=== PATIENT | male | born 1970 | race Caucasian/White ===

== ENCOUNTER → 2016-08-03 | Outpatient (CLI) | payer BC ==
[2016-08-03 17:00] LABS: CH 31.6; CHCM 32.7; HCT 45.2 % (39.0-53.0); HDW 2.31; HGB 14.5 gm/dL (13.0-17.5); MCH 31.2 pg (25.0-35.0); MCHC 32.1 g/dL (31.0-37.0); MCV 97.2 fL (80.0-100.0); Mean Platelet Volume 7.4; RBC 4.65 m/uL (4.30-5.90); RDW 13.2 % (11.5-15.5)
[2016-08-03 17:17] LABS: Anion Gap 11 mmol/L; Blood Urea Nitrogen 17 mg/dL (9-20); Carbon Dioxide 28 mmol/L (22-30); Chloride 104 mmol/L (98-107); Non-African American GFR(MDRD) >60 (>60 ml/min/1.73 sqM); Potassium 4.1 mmol/L (3.5-5.1); Sodium 143 mmol/L (137-145)
== END | disposition home or self-care (01) ==
LOC: LABWHC1 16:42
PROVIDERS: ATTEND Internal Medicine Interventional Cardiology
DX: Z01.812 Encounter for preprocedural laboratory examination (principal); I34.0 Nonrheumatic mitral (valve) insufficiency
CPT/HCPCS: 36415; 80051; 82565; 84520; 85027

== ENCOUNTER 2016-08-17 05:57 | Day surgery (SDC) | payer BC ==
[2016-08-16 10:37] VITALS: BMI 28.1
[2016-08-17] MEDS ORDERED: ALPRAZolam 0.25 MG TAB PO PRN (06:00)
[2016-08-17] MEDS ORDERED: SODIUM CHLORIDE 0.9% 1,000 ML in EMPTY BAG 1 BAG IV ONE (06:00)
[2016-08-17] MEDS ORDERED: ATORVASTATIN 80 MG TAB PO ONE (06:00)
[2016-08-17] MEDS ORDERED: ASPIRIN 325 MG TAB PO ONE (06:00)
[2016-08-17 06:26] VITALS: TEMP 98.1
[2016-08-17] MEDS ORDERED: fentaNYL (PF) 50 MCG/ML 2 ML AMP ONE (06:46)
[2016-08-17] MEDS ORDERED: MIDAZOLAM 2 MG/2 ML VIAL ONE (06:47)
[2016-08-17] MEDS ORDERED: SODIUM CHLORIDE 0.9% 1,000 ML IV ONE (06:56)
[2016-08-17] MEDS: BENZOCAINE SPRAY 100 APPLIC/CAN MUCOUS MEM ONE ×2 (07:00→07:10)
[2016-08-17] MEDS ORDERED: fentaNYL (PF) 50 MCG/ML 2 ML AMP IV ONE (07:07)
[2016-08-17] MEDS ORDERED: MIDAZOLAM 2 MG/2 ML VIAL IV ONE (07:07)
[2016-08-17] MEDS ORDERED: LIDOCAINE 2% INJ 20 MG/ML SQ ONE (07:50)
[2016-08-17] MEDS ORDERED: IOHEXOL 350 MG/ML 125ML BOTTLE INJ ONE (08:15)
[2016-08-17 08:21] LABS: Site RA
[2016-08-17 08:22] LABS: Site PA
[2016-08-17 08:25] LABS: Site FA
[2016-08-17] MEDS ORDERED: RX INFO: IV CONTRAST WAS GIVEN 1 EACH MISC MISCELLANE PRN (08:25)
[2016-08-17] MEDS ORDERED: SODIUM CHLORIDE 0.9% 1,000 ML IV SCH (08:30)
[2016-08-17 08:40] VITALS: RESP 16
--- NOTE | 2016-08-17 08:54 | ECHOT ---
DATE OF SERVICE: INDICATION: Evaluation of mitral valve. PROCEDURE: After explaining the procedure to the patient, its risk and complications, his blood pressure, heart rate, O2 saturation was monitored. The throat was sprayed with Cetacaine. He received 2 mg of intravenous Versed and 50 mcg of intravenous fentanyl after obtaining moderate conscious sedation state, the probe was introduced into the esophagus. Images were obtained. Following that, the probe was removed. There was no immediate complication. FINDINGS: Left atrial size is dilated, left atrial appendage is normal. Left ventricular size is mildly dilated. The overall left ventricular systolic function is 50% to 55%. The aortic valve, tricuspid and pulmonic valve are normal. The mitral valve revealed flail posterior mitral valve leaflets. No pericardial effusion was noted. Descending thoracic aorta appears to be normal. Contrast bubble study revealed no evidence of shunting across the interatrial septum. Pulse wave and color Doppler were obtained, revealed severe eccentric mitral regurgitation with mild tricuspid regurgitation. There was no shunting by color Doppler study. CONCLUSION: 1. Dilated left atrium. 2. Mildly dilated left ventricle with an ejection fraction of 50% to 55%. 3. Flail posterior mitral valve leaflets with severe eccentric mitral regurgitation. 4. Mild tricuspid regurgitation. 5. There was no shunting across the interatrial septum.
--- NOTE | 2016-08-17 09:42 | CC ---
DATE OF SERVICE: Mr. Bolton is a 45-year-old male with a history of hypertension, hyperlipidemia, and mitral valve disease, who has had progressive mitral regurgitation with mild inferior left ventricular systolic function and severe mitral valve prolapse. In view of that, recommendation was made regarding cardiac catheterization. The procedure as well as risks and complications were discussed with the patient who is in full understanding and agreement. PROCEDURE: Patient was brought to the [facility] in a fasting semi-sedated state and after reaching moderate conscious sedation using Xylocaine for anesthesia and a Seldinger technique, a 6 Irish sheath was introduced in the right femoral artery and an 8 Irish sheath was introduced in the right femoral vein. Right heart catheterization was performed using [place]-Meg catheter. Multiple pressure samples were obtained. Cardiac output by thermodilution was calculated. Following that, a selective right and left coronary angiography was performed using 6 Irish 4 [place], right Juan catheter, multiple views of the coronary artery including hemiaxial views were obtained. Following that, a 6 Irish tight pigtail catheter was introduced into the left ventricle and a 30 degree [place] view of the left ventricle was obtained. Following that, catheter and sheaths were removed. Hemostasis was obtained with deployment of an Angio-Seal in the right femoral artery and compression of the right femoral vein. FINDINGS: HEMODYNAMICS: right atrial saturation IS 73%, pulmonary artery saturation 76%, femoral artery saturation of 96%. Cardiac output by thermodilution is 4.6 L/min and by Danitza of 6.7 L/min. Pulmonary artery systolic pressure of 47 with a diastolic 23 and a mean of 34 mmHg. Pulmonary capillary wedge pressure A wave of 19, V wave of 31 with a mean of 21mmHg. Right ventricle systolic pressure of 46 with an end-diastolic of 8. Right atrial A wave of 6, V wave 6 with a mean of 6 mmHg. There was no gradient across the aortic valve. The left ventricular end-diastolic pressure of 28 mmHg. CORONARIES: LEFT MAIN: This is a large-size vessel bifurcating into the left circumflex and left anterior descending artery. Left main coronary artery is without any significant obstructive coronary artery disease. LEFT ANTERIOR DESCENDING ARTERY: This is a large-size vessel reaching toward the apex with a wraparound apex segment, giving rise to a large diagonal branch proximally, after the take off of the diagonal branch, there are 2 areas of stenosis of 30% to 40%. The rest of the vessel has no high-grade stenosis. LEFT CIRCUMFLEX: This is a nondominant vessel, large in caliber, giving rise to a large obtuse marginal branch. The left circumflex as well as its branches have no evidence of obstructive lung disease. RIGHT CORONARY ARTERY: This is a large dominant vessel, bifurcating distally into PDA and posterolateral segment and branches. The right coronary artery throughout its course has mild intimal disease up to 20% to 30% without any evidence of high-grade stenosis. LEFT VENTRICULOGRAM: Left ventriculogram is performed in 30 degree [place] view and revealed a mildly dilated left ventricle. There is evidence of mild global hypokinesis, estimated ejection fraction of 45% to 50%. There was 4+ mitral regurgitation. CONCLUSION: 1. Mild to moderate triple-vessel coronary artery disease. 2. Mildly impaired left ventricle systolic function with severe mitral regurgitation. RECOMMENDATION: In view of the finding anatomy, would recommend to proceed with mitral valve repair. The rationale behind the procedure was discussed with the patient. He will be evaluated by the Cardiovascular Service.
--- NOTE | 2016-08-17 09:46 | LTR ---
August 17, 2016 RE: Benjamin Bolton Dear Dr. Lr; I had the pleasure to perform cardiac catheterization on Mr. Bolton at [facility] on August 17, 2016 and a full copy of the procedure note will be forwarded to you. In brief, he was found to have mild to moderate coronary artery disease with severe mitral regurgitation and inflated posterior mitral valve leaflets and based on those findings, I would recommend proceeding with evaluation for mitral valve repair. I will keep you updated on his progress. Thank you again for allowing me to participate in this patient's care. Please feel free to call for any questions. Sincerely yours, JIMMY MARTIN MD
[2016-08-17 09:56] LABS: Basophils # (A) 0.1 k/uL (0-0.2); Basophils % (A) 2 %; CH 31.4; Eosinophils # (A) 0.1 k/uL (0-0.7); Eosinophils % (A) 2 %; HCT 44.1 % (39.0-53.0); HDW 2.29; HGB 14.5 gm/dL (13.0-17.5); Luc # (Auto) 0.11; Luc % (Auto) 3; Lymphocytes # (A) 1.6 k/uL (1.0-4.8); Lymphocytes % (A) 37 %; MCH 31.4 pg (25.0-35.0); MCHC 32.9 g/dL (31.0-37.0); MCV 95.6 fL (80.0-100.0); Monocytes # (A) 0.3 k/uL (0-1.0); Monocytes % (A) 6 %; Neutrophils # (A) 2.1 k/uL (1.3-7.7); Neutrophils % (A) 51 %; RBC 4.62 m/uL (4.30-5.90); WBC 4.2 k/uL (3.8-10.6); WBC (Perox) 4.39
[2016-08-17 10:07] LABS: INR 1.1 (<1.1); Partial Thromboplastin Time 25.8 sec (22.0-30.0); Prothrombin Time 11.2 sec (9.0-12.0)
[2016-08-17 10:15] LABS: ALT 27 U/L (21-72); AST 23 U/L (17-59); Alkaline Phosphatase 56 U/L (38-126); Anion Gap 10 mmol/L; Blood Urea Nitrogen 21 mg/dL (9-20); Calcium 9.4 mg/dL (8.4-10.2); Carbon Dioxide 27 mmol/L (22-30); Chloride 105 mmol/L (98-107); Cholesterol 143 mg/dL (<200); Glucose 86 mg/dL (74-99); HDL Cholesterol 38 mg/dL (40-60); Non-African American GFR(MDRD) >60 (>60 ml/min/1.73 sqM); Potassium 4.5 mmol/L (3.5-5.1); Sodium 142 mmol/L (137-145); Total Bilirubin 1.2 mg/dL (0.2-1.3); Total Protein 7.4 g/dL (6.3-8.2); Triglycerides 95 mg/dL (<150)
[2016-08-17 10:44] LABS: Hepatitis B Surface Ag Index 0.05
[2016-08-17 10:50] LABS: Hepatitis B Core IgM Index 0.03
[2016-08-17 11:01] LABS: Hepatitis C Virus IgG Index 0.01
[2016-08-17 11:07] LABS: Hepatitis C Virus IgG Ab Negative (Negative)
[2016-08-17 12:27] VITALS: BP 113/71; PULSE 86
[2016-08-17 12:29] LABS: Appearance,Urine Clear (Clear); Bilirubin,Urine Negative (Negative); Glucose,Urine (UA) Negative (Negative); Ketones,Urine Negative (Negative); Leukocyte Esterase,Urine Negative (Negative); Nitrite,Urine Negative (Negative); Protein,Urine Negative (Negative); Specific Gravity,Urine 1.044 (1.001-1.035); UA Billing (MACRO vs. MICRO) CHEM; Urobilinogen,Urine <2.0 mg/dL (<2.0)
--- NOTE | 2016-08-17 13:15 | US ---
EXAMINATION TYPE: US carotid duplex BILAT DATE OF EXAM: 08/17/2016 12:39 PM COMPARISON: NONE CLINICAL HISTORY: pre-open MVR. No h/o stroke or any symptoms EXAM MEASUREMENTS: RIGHT: Peak Systolic Velocity (PSV) cm/sec ----- Right CCA: 67.7 ----- Right ICA: 72.1 ----- Right ECA: 101.7 ICA/CCA ratio: 1.1 RIGHT: End Diastole cm/sec ----- Right CCA: 18.8 ----- Right ICA: 32.8 ----- Right ECA: 16.3 LEFT: Peak Systolic Velocity (PSV) cm/sec ----- Left CCA: 84.4 ----- Left ICA: 61.7 ----- Left ECA: 79.5 ICA/CCA ratio: 0.7 LEFT: End Diastole cm/sec ----- Left CCA: 24.8 ----- Left ICA: 30. ----- Left ECA: 20.1 VERTEBRALS (direction of flow): Right Vertebral: Antegrade Left Vertebral: Antegrade Mild homogeneous plaque seen with no significant stenosis Grayscale images show mild eccentric shadowing plaque right carotid bulb. IMPRESSION: No hemodynamically significant stenosis seen in either internal carotid artery.
[2016-08-17] MEDS ORDERED: ACETAMINOPHEN TAB 325 MG TAB ONE (13:43)
--- NOTE | 2016-08-17 14:25 | XR ---
EXAMINATION TYPE: XR chest 2V DATE OF EXAM: 08/17/2016 2:20 PM COMPARISON: Chest x-ray December 11, 2015 HISTORY: Preoperative cardiac surgery TECHNIQUE: Frontal and lateral views of the chest are obtained. FINDINGS: There is no focal air space opacity, pleural effusion, or pneumothorax seen. The cardiac silhouette size is within normal limits. Scoliotic curvature to the thoracic spine is redemonstrated. IMPRESSION: No acute cardiopulmonary process. No significant change from prior.
[2016-08-17] MEDS ORDERED: LOSARTAN 50 MG TAB PO SCH (21:00)
[2016-08-17] MEDS ORDERED: ASPIRIN 325 MG TAB PO SCH (21:00)
[2016-08-18] MEDS ORDERED: ATORVASTATIN 20 MG TAB PO SCH (09:00)
--- NOTE | 2016-08-19 18:30 | P.GSCN ---
History of Present Illness Consult date: 08/17/16 Reason for Consult: Severe mitral valve regurgitation, need for valve repair vs. replacement. Requesting physician: Rosemary Murry History of present illness: This 45 year old gentleman has been followed by Dr. Murry for mitral valve disease, specifically mitral valve prolapse and mitral regurgitation. He reported increasing fatigue and dyspnea on exertion. He denied chest pain, peripheral edema, orthopnea, palpitations, syncope, stroke-like symptoms or claudication. At the request of Dr. Murry, the patient underwent heart catheterization and transesophageal echocardiogram. His heart cath demonstrated 50% stenosis of the LAD and 20-30% stenosis of the RCA. The SHAZIA revealed severe mitral regurgitation with a flail posterior mitral valve leaflet. Dr. Roy was consulted for evaluation for a mitral valve repair vs. replacement. The findings of the heart cath and SHAZIA were discussed in detail between Dr. Roy and Dr. Murry, and it was felt that the LAD could be stented at a later time by Dr. Murry. Details of mitral valve surgery was discussed at length with the patient and his , all risks and benefits were explained, and the patient agreed to proceed with surgery. Pre-operative testing was ordered and completed while the patient was in the hospital, and he was to be discharged home to obtain dental clearance prior to surgery. Review of Systems A 14 point review of systems was completed and was negative except as noted. - Constitutional Reports as per HPI - Cardiovascular Reports as per HPI Past Medical History Past Medical History: Hyperlipidemia, Hypertension Additional Past Medical History / Comment(s): HX HEART MURMUR History of Any Multi-Drug Resistant Organisms: None Reported Past Surgical History: No Surgical Hx Reported Additional Past Surgical History / Comment(s): NO PRIOR SX HX Past Anesthesia/Blood Transfusion Reactions: No Reported Reaction Additional Past Anesthesia/Blood Transfusion Reaction / Comm: NO PRIOR SX OR ANESTHESIA HX Smoking Status: Never smoker Past Alcohol Use History: None Reported Past Drug Use History: None Reported - Past Family History Mother Family Medical History: Cancer Medications and Allergies Home Medications Medication Instructions Recorded Confirmed Type Aspirin EC [Ecotrin] 325 mg PO HS 08/16/16 08/17/16 History Atorvastatin [Lipitor] 20 mg PO DAILY 08/16/16 08/17/16 History Olmesartan Medoxomil [Benicar] 40 mg PO HS 08/16/16 08/17/16 History Allergies Allergy/AdvReac Type Severity Reaction Status Date / Time No Known Allergies Allergy Verified 08/16/16 10:34 Surgical - Exam Vital Signs Temp Pulse Resp BP Pulse Ox 98.1 F 88 18 116/77 97 08/17/16 06:24 08/17/16 06:24 08/17/16 06:24 08/17/16 06:24 08/17/16 06:24 - General well developed, well nourished, no distress, no pain - Eyes PERRL, normal ocular movement - ENT no hearing loss - Neck no masses, no bruits, trachea midline - Respiratory normal expansion, normal respiratory effort, clear to auscultation - Cardiovascular Rhythm: regular Heart Sounds: normal: S1, S2 Abnormal Heart Sounds: systolic murmur - Abdomen Abdomen: soft, non tender, bowel sounds - Genitourinary Deferred. - Rectum Deferred. - Integumentary no rash - Neurologic normal coordination, normal sensation - Musculoskeletal normal gait - Psychiatric oriented to time, oriented to person, oriented to place, speech is normal, memory intact Results - Labs 08/17/16 09:38 08/17/16 09:38 Microbiology - Last 24 Hours (Table) 08/17/16 09:27 Nasal Screen MRSA/MSSA (AMBER) - Final Nasal Swab Staphylococcus aureus,Not MRSA 08/17/16 11:55 Urine Culture - Final Urine,Voided - Imaging Chest x-ray: image reviewed EKG: image reviewed Additional studies: Carotid dopplers reviewed. Assessment and Plan (1) Severe mitral regurgitation Status: Acute (2) Hypertension Status: Acute (3) Hyperlipidemia Status: Acute Plan: The patient was seen and examined with Dr. Roy. Results of heart catheterization and SHAZIA were reviewed with the patient and his . Pre- operative testing was completed. Pre-operative teaching was initiated and reinforced. The patient is to obtain dental clearance. He is to return to the hospital on August 24, 2016 for mitral valve repair, possible replacement with exclusion of the left atrial appendage. All questions were answered to the best of our abilities. The patient received the open heart binder as well as a prescription for mupirocin to begin immediately. Thank you Dr. Murry for this consult. We look forward to working with you in the care of your patient. Time with Patient: Greater than 30
== END 2016-08-17 14:30 | disposition home or self-care (01) ==
LOC: CATHCVL 05:57
PROVIDERS: ATTEND Internal Medicine Interventional Cardiology
DX: I08.1 Rheumatic disorders of both mitral and tricuspid valves (principal); I25.10 Atherosclerotic heart disease of native coronary artery without angina pectoris; I51.7 Cardiomegaly; I10 Essential (primary) hypertension; E78.2 Mixed hyperlipidemia; Z79.899 Other long term (current) drug therapy
CPT/HCPCS: 94150; 93312; 93320; 93005; 93325; 93460; 86900; 86901; 83880; 80061; 80053; 80074; 85018; 84443; 83036; 82810; 83735; 85025; 85610; 85730; 86850; 81003; 87070; 87086; 71020; 93880; 99152; 99153; C1760; C1894 ×2; C1769; J2001; J2250; J3010; Q9967; 86920

== ENCOUNTER 2016-08-24 05:52 | Inpatient (IN) | payer BC ==
[2016-08-17 11:01] LABS: Hemoglobin A1C 5.3 % (4.2-6.1)
[2016-08-20 11:30] VITALS: BMI 26.9
[~2016-08-24 05:52] MED LIST: ALBUMIN HUMAN 25% 50 ML IV ONE; ALBUMIN HUMAN 5% 500 ML IVPB ONE; AMINOCAPROIC ACID 250 MG/ML 20 ML VIAL IV ONE; AMINOCAPROIC ACID 5,000 MG in DEXTROSE 5% IN WATER 50 ML IV ONE; ASPIRIN 81 MG CHEW PO ONE; ATORVASTATIN 10 MG TAB PO ONE; CALCIUM CHLORIDE 100 MG/ML 10 ML SYRINGE IV ONE; CHLORHEXIDINE GLUCONATE 15 ML CUP MUCOUS MEM ONE; CLEVIDIPINE BUTYRATE 25 MG in EMPTY BAG 1 BAG IV ONE; DEXTROSE 5% IN WATER 1,000 ML with POTASSIUM CHLORIDE 110 MEQ, MAGNESIUM SULFATE 16 MEQ... IV ONE; DEXTROSE 5% IN WATER 1,000 ML with POTASSIUM CHLORIDE 25 MEQ, SODIUM CHLORIDE 4MEQ/ML V... IV ONE; HEPARIN SODIUM 1,000 UNIT/ML VIAL IV ONE; HEPARIN SODIUM,PORCINE 5,000 UNIT in SODIUM CHLORIDE 0.9% 500 ML IV ONE; INSULIN REGULAR 100 UNIT in SODIUM CHLORIDE 0.9% 100 ML IV ONE; LACTATED RINGERS 1,000 ML IV ONE; LACTATED RINGERS 1,000 ML IV SCH; MAGNESIUM SULFATE MG 500 MG/ML VIAL IV ONE; MANNITOL 25% 12.5 GM/50 ML VIAL IV ONE; METOPROLOL TARTRATE 12.5 MG TAB PO ONE; MUPIROCIN 2% OINT 22 GM TUBE NASAL ONE; NITROGLYCERIN-D5W PMX 25 MG/250 ML BTL IV ONE; NITROGLYCERIN-D5W PMX 50 MG in DEXTROSE/WATER 1 250ML.BAG IV ONE; NOREPINEPHRIN 4 MG-0.9% NS PMX 4 MG/250 ML ML IV ONE; PAPAVERINE 360 MG in SODIUM CHLORIDE 0.9% 90 ML IV ONE; PHENYLEPHRINE 40 MG in SODIUM CHLORIDE 0.9% 250 ML IV ONE; PHENYLEPHRINE-0.9% NACL SYG 1 MG/10 ML SYRINGE IV ONE; PROPOFOL 50 ML IV ONE; PROTAMINE SULFATE 10 MG/ML 25 ML VIAL IV ONE; PROTAMINE SULFATE 250 MG in EMPTY BAG 1 BAG IV ONE; SODIUM BICARB 8.4% 50 ML SYR (1 MEQ/ML) IV ONE; SODIUM CHLORIDE 0.9% 1,000 ML IV ONE; ceFAZolin 1,000 MG in SODIUM CHLORIDE 0.9% IRRIGATIO 1,000 ML IRRIGATION ONE; ceFAZolin 2,000 MG in SODIUM CHLORIDE 0.9% 30 ML IVPB ONE
[2016-08-24] MEDS ORDERED: PHENYLEPHRINE-0.9% NACL SYG 1 MG/10 ML SYRINGE ONE (08:18)
[2016-08-24] MEDS ORDERED: VECURONIUM 10 MG VIAL IV ONE (08:18)
[2016-08-24] MEDS ORDERED: ALBUMIN HUMAN 5% 250 ML BOTTLE IVPB ONE (08:18)
[2016-08-24] MEDS ORDERED: PROPOFOL 10 MG/ML 20 ML VIAL IV ONE (08:18)
[2016-08-24] MEDS ORDERED: fentaNYL (PF) 50 MCG/ML 2 ML AMP ONE (08:18)
[2016-08-24] MEDS ORDERED: PROTAMINE SULFATE 10 MG/ML 5 ML VIAL IV ONE (08:18)
[2016-08-24] MEDS ORDERED: fentaNYL (PF) 50 MCG/ML 50 ML VIAL ONE (08:18)
[2016-08-24] MEDS ORDERED: ELECTROLYTE-R (PH 7.4) 1,000 ML IV.SOLN IV ONE (08:18)
[2016-08-24] MEDS ORDERED: HEPARIN SODIUM 1,000 UNIT/ML VIAL ONE (08:18)
[2016-08-24] MEDS ORDERED: HEPARIN SODIUM,PORCINE 10,000 UNIT/ML 1 ML VIAL ONE (08:18)
[2016-08-24] MEDS ORDERED: PROTAMINE SULFATE 10 MG/ML 25 ML VIAL IV ONE (08:18)
[2016-08-24] MEDS ORDERED: LIDOCAINE 2% SYG (PF) 100 MG/5 ML ONE (08:18)
[2016-08-24] MEDS ORDERED: SODIUM CHLORIDE 0.9% IRRIG 1,000 ML BTL IRRIGATION ONE (08:18)
[2016-08-24] MEDS ORDERED: MIDAZOLAM 2 MG/2 ML VIAL ONE (08:18)
[2016-08-24] MEDS ORDERED: ePHEDrine 50 MG/ML 1 ML AMP ONE (08:18)
[2016-08-24] MEDS ORDERED: CALCIUM CHLORIDE 100 MG/ML 10 ML SYRINGE ONE (08:18)
[2016-08-24 08:56] LABS: Glucose,Whole Blood 88 mg/dL (75-99)
[2016-08-24 10:17] LABS: Glucose,Whole Blood 100 mg/dL (75-99)
[2016-08-24 10:52] LABS: Glucose,Whole Blood 166 mg/dL (75-99)
[2016-08-24 11:26] LABS: Glucose,Whole Blood 158 mg/dL (75-99)
[2016-08-24] MEDS ORDERED: METHYLENE BLUE 50 MG/10 ML AMPUL MISCELLANE STA (12:48)
[2016-08-24 13:10] LABS: Glucose,Whole Blood 159 mg/dL (75-99)
[2016-08-24 13:52] LABS: Glucose,Whole Blood 161 mg/dL (75-99)
[2016-08-24 14:07] LABS: Glucose,Whole Blood 136 mg/dL (75-99)
[2016-08-24] MEDS ORDERED: ALBUMIN HUMAN 5% 250 ML IVPB ONE (14:26)
[2016-08-24] MEDS: PROPOFOL 500 MG in EMPTY BAG 1 BAG IV SCH ×2 (15:25→16:28)
[2016-08-24] MEDS ORDERED: BENZOCAINE/MENTHOL LOZENG 1 EACH LOZENGE MUCOUS MEM PRN (15:32)
[2016-08-24] MEDS ORDERED: Phosphorus Replacement Protoco 1 EACH MISC MISCELLANE PRN (15:32)
[2016-08-24] MEDS ORDERED: CLEVIDIPINE BUTYRATE 25 MG in EMPTY BAG 1 BAG IV SCH (15:32)
[2016-08-24] MEDS ORDERED: ONDANSETRON 4 MG/2 ML VIAL IVP PRN (15:32)
[2016-08-24] MEDS ORDERED: Potassium Replacement Protocol 1 EACH MISC MISCELLANE PRN (15:32)
[2016-08-24] MEDS ORDERED: Magnesium Replacement Protocol 1 EACH MISC MISCELLANE PRN (15:32)
[2016-08-24] MEDS ORDERED: METOCLOPRAMIDE 5 MG/ML 2 ML VIAL IVP PRN (15:32)
[2016-08-24] MEDS ORDERED: CALCIUM GLUCONATE 2,000 MG in SODIUM CHLORIDE 0.9% 100 ML IVPB PRN (15:32)
[2016-08-24 15:38] LABS: Glucose,Whole Blood 112 mg/dL (75-99)
[2016-08-24 15:46] LABS: Basophils % (A) 0 %; CH 31.6; CHCM 33.2; Eosinophils % (A) 0 %; HCT 36.8 % (39.0-53.0); HDW 2.31; HGB 11.9 gm/dL (13.0-17.5); Luc # (Auto) 0.05; Luc % (Auto) 1; Lymphocytes % (A) 10 %; MCHC 32.4 g/dL (31.0-37.0); MCV 95.6 fL (80.0-100.0); Mean Platelet Volume 7.3; Monocytes # (A) 0.5 k/uL (0-1.0); Monocytes % (A) 6 %; Neutrophils # (A) 7.9 k/uL (1.3-7.7); Neutrophils % (A) 83 %; RBC 3.85 m/uL (4.30-5.90); WBC 9.5 k/uL (3.8-10.6); WBC (Perox) 9.88
[2016-08-24 15:52] LABS: INR 1.2 (<1.1); Partial Thromboplastin Time 25.9 sec (22.0-30.0); Prothrombin Time 11.9 sec (9.0-12.0)
[2016-08-24 15:53] LABS: Ionized Calcium 4.8 mg/dL (4.5-5.3)
--- NOTE | 2016-08-24 16:04 | XR ---
EXAMINATION TYPE: XR chest 1V portable DATE OF EXAM: 08/24/2016 3:46 PM Comparison: 08/17/2016 Clinical History: 45 year-old male post Operative Cardiac Surgery Findings: ET tube tip is 2.5 cm from the raman. NG tube courses below the diaphragm. Some retained epicardial pacer leads are present. Mediastinal drain as well as a right pleural drain are noted. Right IJ [place]- Meg catheter with tip at the proximal right main pulmonary artery. Heart is upper limits of normal in size. Obscuration of the aortic descent with patchy left basilar o pacity. No appreciable pneumothorax. Impression: Postoperative atelectasis and trace effusion at the left base.
[2016-08-24 16:05] LABS: ALT 28 U/L (21-72); AST 38 U/L (17-59); Alkaline Phosphatase 46 U/L (38-126); Anion Gap 7 mmol/L; Blood Urea Nitrogen 12 mg/dL (9-20); Calcium 8.1 mg/dL (8.4-10.2); Carbon Dioxide 25 mmol/L (22-30); Chloride 109 mmol/L (98-107); Glucose 108 mg/dL (74-99); Magnesium 2.3 mg/dL (1.6-2.3); Non-African American GFR(MDRD) >60 (>60 ml/min/1.73 sqM); Potassium 4.3 mmol/L (3.5-5.1); Sodium 141 mmol/L (137-145); Total Bilirubin 1.2 mg/dL (0.2-1.3); Total Protein 5.2 g/dL (6.3-8.2)
[2016-08-24 16:05] LABS: ABG Base Excess -1.3 mmol/L; ABG HCO3 25 mmol/L (21-25); ABG PCO2 50 mmHg (35-45); ABG PH 7.31 (7.35-7.45); ABG PO2 152 mmHg (83-108); ABG TCO2 17 mmol/L (19-24)
[2016-08-24 16:07] LABS: Glucose,Whole Blood 115 mg/dL (75-99)
[2016-08-24] MEDS: IPRATROPIUM-ALBUTEROL 3 ML NEB INHALATION SCH ×2 (16:15→20:13)
[2016-08-24] MEDS: MORPHINE SULFATE 2 MG/ML SYRINGE IVP PRN ×2 (16:17→20:03)
[2016-08-24] MEDS: LACTATED RINGERS 1,000 ML IV SCH (16:26)
[2016-08-24 17:14] LABS: Glucose,Whole Blood 127 mg/dL (75-99)
[2016-08-24] MEDS ORDERED: INSULIN REGULAR 100 UNIT in SODIUM CHLORIDE 0.9% 100 ML IV SCH (17:30)
[2016-08-24 17:36] LABS: Glucose,Whole Blood 122 mg/dL (75-99)
[2016-08-24 18:09] LABS: Glucose,Whole Blood 130 mg/dL (75-99)
[2016-08-24] MEDS: ALBUMIN HUMAN 5% 250 ML in EMPTY BAG 1 BAG IVPB PRN ×2 (18:30→19:34)
[2016-08-24] MEDS: ACETAMINOPHEN IV (For NPO) 1,000 MG in EMPTY BAG 1 BAG IVPB SCH ×2 (18:33→23:10)
[2016-08-24] MEDS: ceFAZolin 2 GM in SODIUM CHLORIDE 0.9% 100 ML IVPB SCH (18:33)
[2016-08-24 18:51] LABS: Basophils % (A) 0 %; CH 31.9; CHCM 33.7; Eosinophils % (A) 0 %; HCT 35.9 % (39.0-53.0); HDW 2.43; Luc # (Auto) 0.09; Luc % (Auto) 1; Lymphocytes # (A) 0.5 k/uL (1.0-4.8); Lymphocytes % (A) 5 %; MCH 31.9 pg (25.0-35.0); MCHC 33.5 g/dL (31.0-37.0); MCV 95.3 fL (80.0-100.0); Mean Platelet Volume 8.3; Monocytes # (A) 0.8 k/uL (0-1.0); Monocytes % (A) 8 %; Neutrophils % (A) 85 %; RBC 3.77 m/uL (4.30-5.90); RDW 12.9 % (11.5-15.5); WBC 9.4 k/uL (3.8-10.6); WBC (Perox) 9.81
[2016-08-24 18:55] LABS: INR 1.2 (<1.1); Ionized Calcium 4.7 mg/dL (4.5-5.3); Prothrombin Time 11.8 sec (9.0-12.0)
[2016-08-24 19:00] LABS: Glucose,Whole Blood 131 mg/dL (75-99)
[2016-08-24 19:04] LABS: Anion Gap 8 mmol/L; Blood Urea Nitrogen 13 mg/dL (9-20); Calcium 7.9 mg/dL (8.4-10.2); Carbon Dioxide 24 mmol/L (22-30); Chloride 108 mmol/L (98-107); Glucose 135 mg/dL (74-99); Magnesium 2.1 mg/dL (1.6-2.3); Non-African American GFR(MDRD) >60 (>60 ml/min/1.73 sqM); Phosphorous 3.1 mg/dL (2.5-4.5); Potassium 4.2 mmol/L (3.5-5.1); Sodium 140 mmol/L (137-145)
[2016-08-24 19:37] LABS: ABG PH 7.34 (7.35-7.45)
[2016-08-24 19:38] LABS: ABG PCO2 42 mmHg (35-45); ABG PO2 63 mmHg (83-108)
[2016-08-24 19:39] LABS: ABG Base Excess -2.6 mmol/L; ABG HCO3 22 mmol/L (21-25); ABG TCO2 14 mmol/L (19-24)
[2016-08-24 19:58] LABS: Glucose,Whole Blood 122 mg/dL (75-99)
[2016-08-24 20:28] LABS: CH 31.3; CHCM 33.1; HDW 2.33; HGB 10.8 gm/dL (13.0-17.5); MCH 31.1 pg (25.0-35.0); MCHC 32.7 g/dL (31.0-37.0); Mean Platelet Volume 8.8; RBC 3.48 m/uL (4.30-5.90); RDW 13.1 % (11.5-15.5); WBC 8.1 k/uL (3.8-10.6)
[2016-08-24 21:02] LABS: Glucose,Whole Blood 134 mg/dL (75-99)
[2016-08-24] MEDS: MUPIROCIN 2% OINT 22 GM TUBE NASAL SCH (21:30)
[2016-08-24 22:02] LABS: Glucose,Whole Blood 137 mg/dL (75-99)
[2016-08-24 22:37] LABS: Basophils % (A) 0 %; CH 31.6; CHCM 32.8; Eosinophils % (A) 0 %; HCT 33.2 % (39.0-53.0); HDW 2.31; HGB 10.8 gm/dL (13.0-17.5); Luc # (Auto) 0.05; Luc % (Auto) 1; Lymphocytes # (A) 0.3 k/uL (1.0-4.8); Lymphocytes % (A) 4 %; MCH 31.5 pg (25.0-35.0); MCHC 32.5 g/dL (31.0-37.0); MCV 96.8 fL (80.0-100.0); Mean Platelet Volume 7.6; Monocytes # (A) 0.4 k/uL (0-1.0); Monocytes % (A) 5 %; Neutrophils # (A) 6.9 k/uL (1.3-7.7); Neutrophils % (A) 90 %; RBC 3.43 m/uL (4.30-5.90); RDW 13.2 % (11.5-15.5); WBC 7.6 k/uL (3.8-10.6); WBC (Perox) 7.66
[2016-08-24] MEDS: IPRATROPIUM-ALBUTEROL 3 ML NEB INHALATION PRN (23:09)
[2016-08-24 23:11] LABS: Glucose,Whole Blood 129 mg/dL (75-99)
[2016-08-25] MEDS: ceFAZolin 2 GM in SODIUM CHLORIDE 0.9% 100 ML IVPB SCH ×2 (00:07→07:48)
[2016-08-25 00:13] LABS: Glucose,Whole Blood 135 mg/dL (75-99)
[2016-08-25] MEDS: HEPARIN SODIUM,PORCINE 5,000 UNIT/ML 1 ML VIAL SQ SCH ×4 (00:35→23:02)
[2016-08-25 01:05] LABS: Glucose,Whole Blood 133 mg/dL (75-99)
[2016-08-25 02:01] LABS: Glucose,Whole Blood 127 mg/dL (75-99)
[2016-08-25 02:59] LABS: Glucose,Whole Blood 129 mg/dL (75-99)
[2016-08-25 03:11] LABS: Basophils % (A) 0 %; CHCM 33.8; Eosinophils % (A) 0 %; HCT 31.5 % (39.0-53.0); HGB 10.8 gm/dL (13.0-17.5); Luc # (Auto) 0.06; Luc % (Auto) 1; Lymphocytes # (A) 0.5 k/uL (1.0-4.8); Lymphocytes % (A) 6 %; MCH 32.5 pg (25.0-35.0); MCHC 34.1 g/dL (31.0-37.0); MCV 95.1 fL (80.0-100.0); Mean Platelet Volume 8.4; Monocytes # (A) 0.6 k/uL (0-1.0); Monocytes % (A) 7 %; Neutrophils # (A) 6.7 k/uL (1.3-7.7); Neutrophils % (A) 85 %; RBC 3.32 m/uL (4.30-5.90); RDW 12.9 % (11.5-15.5); WBC 7.9 k/uL (3.8-10.6); WBC (Perox) 7.86
[2016-08-25] MEDS: IPRATROPIUM-ALBUTEROL 3 ML NEB INHALATION PRN (03:24)
[2016-08-25 03:34] LABS: Ionized Calcium 4.8 mg/dL (4.5-5.3)
[2016-08-25 03:43] LABS: ALT 29 U/L (21-72); AST 45 U/L (17-59); Alkaline Phosphatase 42 U/L (38-126); Anion Gap 8 mmol/L; Blood Urea Nitrogen 15 mg/dL (9-20); Carbon Dioxide 24 mmol/L (22-30); Chloride 108 mmol/L (98-107); Glucose 126 mg/dL (74-99); Magnesium 1.9 mg/dL (1.6-2.3); Non-African American GFR(MDRD) >60 (>60 ml/min/1.73 sqM); Sodium 140 mmol/L (137-145); Total Bilirubin 1.2 mg/dL (0.2-1.3); Total Protein 5.3 g/dL (6.3-8.2)
[2016-08-25 04:02] LABS: Glucose,Whole Blood 128 mg/dL (75-99)
[2016-08-25 04:30] LABS: Phosphorous 3.3 mg/dL (2.5-4.5)
[2016-08-25 04:40] LABS: INR 1.2 (<1.1); Prothrombin Time 11.9 sec (9.0-12.0)
[2016-08-25] MEDS: MAGNESIUM SULFATE-D5W PMX 1 GM in DEXTROSE/WATER 1 100ML.BAG IVPB SCH ×2 (05:03→06:20)
[2016-08-25 05:10] LABS: Glucose,Whole Blood 131 mg/dL (75-99)
[2016-08-25 06:14] LABS: Glucose,Whole Blood 132 mg/dL (75-99)
[2016-08-25] MEDS: ACETAMINOPHEN IV (For NPO) 1,000 MG in EMPTY BAG 1 BAG IVPB SCH ×3 (06:19→18:24)
[2016-08-25 07:09] LABS: Glucose,Whole Blood 135 mg/dL (75-99)
--- NOTE | 2016-08-25 07:17 | CONS ---
DATE OF CONSULTATION: 08/24/3026 REASON FOR CONSULTATION: Medical management requested by Dr. Roy. CONSULTATION: This is a 45-year-old patient of Dr. Keaton Lr. The patient has undergone a mitral valve replacement currently is in the ICU, intubated. Patient on CPAP mode. The patient has one mediastinal and one pleural chest tube. Blood pressure is holding around the 90s. Telemetry shows sinus rhythm. Patient's drips include insulin at 1 unit and hour and LR at 50 mL an hour. Patient's nitro drip has been taken off. Patient's is at the bedside to furnish the history. Patient's chronic stable medical conditions include hypertension, hyperlipidemia and heart murmur from mitral valve. Review of systems cannot be done, patient intubated. Past medical history of mitral valve regurgitation, hypertension, hyperlipidemia, PAST SURGICAL HISTORY: Cardiac catheterization, SHAZIA. SOCIAL HISTORY: Patient works in [employer]. Does not smoke or drink alcohol. . FAMILY HISTORY: Cancer. HOME MEDICATIONS: 1. Benicar 40 mg q.h.s. 2. Bactroban 2% nasal ointment b.i.d. 3. Lipitor 20 mg q.h.s. 4. Aspirin 81 mg q.h.s. ALLERGIES: None. On examination, afebrile, pulse 102, respirations 16, blood pressure 97/57, pulse ox 94% on ventilator. GENERAL APPEARANCE: Average built, lying in bed, intubated. EYES: Pupils equal. Conjunctivae normal. HEENT: Endotracheal tube in place. NECK: JVD unable to assess. Mass not palpable. RESPIRATORY: Effort normal. LUNGS: Fair air entry. CARDIOVASCULAR: First and second sounds normal. No edema. ABDOMEN: Soft, nontender. Liver and spleen not palpable. LYMPHATIC: No lymph node palpable in neck or axillae. PSYCHIATRY: Unable to assess. NEUROLOGICAL: Pupils are equal. Plantars are downgoing. Does respond to pain. INVESTIGATIONS: White count 9.4, hemoglobin 12, platelets 144. The patient's platelets before surgery was 198. Patient's hemoglobin before surgery was 14.5. Potassium 4.2. BUN and creatinine are normal. Chest x-ray shows atelectasis. ASSESSMENT: 1. Mitral valve repair for mitral valve regurgitation. 2. Essential hypertension. 3. Hyperlipidemia. 4. Acute postoperative blood loss anemia as expected from surgery. 5. Dilutional thrombocytopenia. 6. Postoperative ventilator support. PLAN: At this point patient is getting ( ) insulin drip at 1 unit an hour, LR, taken off the nitro drip. Home medications will be resumed when patient is able to tolerate a diet. Care was discussed with the at the bedside. Thank you, Dr. Roy.
[2016-08-25] MEDS: MORPHINE SULFATE 2 MG/ML SYRINGE IVP PRN (07:18)
--- NOTE | 2016-08-25 07:26 | XR ---
EXAMINATION TYPE: XR chest 1V portable DATE OF EXAM: 08/25/2016 6:59 AM COMPARISON: 08/24/2016 HISTORY: Post cardiac surgery TECHNIQUE: Single frontal view of the chest is obtained. FINDINGS: ET and NG tube have been removed. Remaining instrumentation stable. Postsurgical changes w ith bilateral infiltrate and pleural effusion seen. No sizable pneumothorax. IMPRESSION: 1. ET and NG tube removal 2. Bilateral infiltrate and pleural effusion stable
[2016-08-25] MEDS ORDERED: FUROSEMIDE 10 MG/ML 2 ML VIAL IV ONE (07:34)
[2016-08-25] MEDS ORDERED: KETOROLAC 30 MG/ML 1 ML VIAL IVP ONE (07:44)
[2016-08-25] MEDS: ATORVASTATIN 40 MG TAB PO SCH (07:49)
[2016-08-25] MEDS: ASPIRIN 325 MG TAB PO SCH (07:49)
[2016-08-25] MEDS: MUPIROCIN 2% OINT 22 GM TUBE NASAL SCH ×2 (07:50→21:10)
--- NOTE | 2016-08-25 08:11 | OP ---
DATE OF SERVICE: 08/24/2016 SURGEON: Diana Roy MD MEDICAL BILLER: Lior Owens and MARLINE Cardozo PREOPERATIVE DIAGNOSES: 1. Severe mitral valve regurgitation from flail P2 segment. 2. Hypertension. 3. Hyperlipidemia. 4. Mild left ventricular dysfunction. POSTOPERATIVE DIAGNOSES: 1. Severe mitral valve regurgitation from flail P2 segment. 2. Hypertension. 3. Hyperlipidemia. 4. Mild left ventricular dysfunction. OPERATION: 1. Complex mitral valve repair with triangular resection of P2 and posterior annuloplasty using a 36 mm AnnuloFlex band. 2. Exclusion of the left atrial appendage using a 50 mm AtriClip. 3. Intraoperative transesophageal echocardiogram and epiaortic scanning. ANESTHESIA: ESTIMATED BLOOD LOSS: SPECIMENS REMOVED: COMPLICATIONS: OPERATIVE FINDINGS: INDICATION FOR SURGERY: Patient is a 45-year-old gentleman who was worked up for dyspnea on exertion with a 2-D echo that showed severe mitral valve regurgitation. A SHAZIA subsequently performed and that showed flail P2 segment of the posterior leaflet. Cardiac catheterization showed soft 30 to 40% narrowing of the proximal to mid LAD. Discussion followed with Dr. Murry from cardiology and decision was made not to combine coronary artery bypass grafting to the mitral repair. Risks, benefits, and alternatives were discussed with him. He understood and agreed to proceed. DESCRIPTION OF THE PROCEDURE: Patient in supine position and a right internal jugular [place]-Meg catheter and right radial arterial line were placed. PA pressure was 60/25. Cardiac index of 2.6. Subsequently is brought to the operating room, where general endotracheal anesthesia was induced uneventfully. Alves catheter was inserted. The chest, abdomen and both lower extremities were prepped and draped using ChloraPrep. Ioban was used to cover the skin. Patient received 2 grams of cefazolin intravenously. Transesophageal echocardiogram confirmed the preoperative finding of a flail P2 with severe mitral valve regurgitation. There were no other significant valvular abnormalities. Left ventricular function was almost normal. Midline sternotomy was performed and no bone wax was used. The right pleura was intentionally opened in this process and was drained with 28 [place] chest tube. I made a small breech in the left pleura at the end of the case to decompress any potential pneumothorax and the left pleura was not drained. Mediastinal fat was dissected between 2 ties and epiaortic scanning revealed normal ascending aorta. Pericardium was opened in an inverted T fashion and a pericardial cradle was created. Findings included a soft aorta, normal-sized heart and no visible or palpable coronary disease. After systemic heparinization and placement of respective pursestrings, aortic cannulation with a 21 [place] soft flow cannula, direct SVC cannulation with a right angle 28 [place] cannula and IVC cannulation via the IVC to right atrial junction was performed using a 30 [place] cannula. Antegrade as well as retrograde cardioplegia catheters were placed via respective pledgeted pursestrings. Cardiopulmonary bypass was initiated and temperature was allowed to drift down to 34 degrees Celsius. Both cava were encircled, but not snared. The aorta was clamped and during aortic clamping myocardial protection was achieved with an initial dose of 800 mL of antegrade cold blood cardioplegia followed by 500 mL of retrograde cold blood cardioplegia. All subsequent doses were given retrograde at 15 minutes interval. The first part of the surgery was to exclude the left atrial appendage and that was done using 50 mm AtriClip deployed at its base. Subsequently, we used the mitral Evens retractor and developed the intra-atrial groove before performing a standard left atriotomy. Exposure of the mitral valve was perfect. 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 For that reason, I placed initially the annuloplasty sutures from trigone to trigone posteriorly and a total of 11 sutures of Tycron 2-0 were placed. At this point we had good access to the valve and the subvalvular apparatus. Examining the valve, there were no other prolapsed segments except for the P2 segment which had 2 primary order chordae ruptured. Initially I placed two pairs of NeoChords from respective anterior and posterior papillary muscle and passed at the edge of the P2 segment over and over. Subsequently, the biggest ring was selected, which was a 36 mm AnnuloFlex that we had as the actual annulus measured to around 40. The sutures were passed into the ring which was seated nicely and the needles were cut and the sutures tied using the core knot device. At this point, I tested the valve and tightened the NeoChords to the best of my judgment. Testing revealed perfect seal. CO2 was flowing over the field as the left atrium was opened. At this point rewarming was started as we gave some warm blood retrograde and the left atriotomy was closed using a running Prolene 3-0 pledgeted on each corner. Before closing the atrium totally we proceeded with some de-airing maneuver. Subsequently patient was given magnesium and lidocaine and the aorta was unclamped. He required one defibrillation before regaining spontaneous sinus rhythm. After the period of reperfusion, we were able to wean off cardiopulmonary bypass. At this point, we looked at the mitral valve with SHAZIA. There appeared to be at least mild to moderate mitral valve regurgitation with a complex jet. It was not obvious why we had a leak. With the ventricle nicely full, there was no obviuos evidence of BROOK; however, the anterior leaflet was quite long. For that reason we elected to eventually go back on bypass, which we did after giving additional heparin and reclamped the aorta and rearrested the heart, with a dose of antegrade cold blood cardioplegia. The left atriotomy closure was re-opened and exposure of the mitral valve was obtained again. Visually there was no obvious reason for the leak as the P2 segment appeared to be at perfect height. For that reason I decided to proceed with a triangular resection of the P2 segment as a last effort to try to save the valve. That was done and both NeoChords were cut and retrieved. The remaining P1 and P3 segments were approximated using a running Prolene 5-0 in 2 layers meeting at the annular level and tied at that level. Hand testing of the valve revealed excellent seal. With that, again, rewarming was started and the atriotomy was closed again in the same fashion using Prolene 3-0 pledgeted on each corner. De-airing maneuver was performed. The aorta was unclamped. Patient required also single defibrillation for regaining spontaneous sinus rhythm. After the period of reperfusion we came off bypass. SHAZIA at this point showed a perfect seal with no evidence of mitral valve regurgitation and certainly no evidence of BROOK. With adequate de-airing and with that, test dose and full dose protamine was given. Decannulation followed. The SVC cannulation site was reinforced with a running 4-0 Prolene nonpledgeted. One 32 [place] substernal chest tube was placed. One bipolar ventricular pacing wire was driven via the inferior right ventricle and 2 monopolar pacing wires were affixed, one to the atrium and one to the mediastinal fat. Pericardium and pericardial fat were approximated loosely over the heart and the aorta. After ensuring adequate hemostasis and hemodynamics and after correct sponge, instrument and needle count, the sternum was approximated using 6 [id number] [place] cable after interposing fibrillar between the sternal edges. Thorough irrigation with cefazolin followed. The rest of the closure proceeded in layers. Patient did not receive any blood bank product but received around 1 liter of Cell Saver blood. He was transferred to the ICU in stable condition on no drips with normal sinus rhythm and normal PA pressure and good cardiac index of around 2.7. [facility]
[2016-08-25] MEDS: IPRATROPIUM-ALBUTEROL 3 ML NEB INHALATION SCH ×4 (08:30→19:34)
[2016-08-25 08:35] LABS: Glucose,Whole Blood 126 mg/dL (75-99)
[2016-08-25 08:53] LABS: ABG Base Excess 0.1 mmol/L; ABG HCO3 23 mmol/L (21-25); ABG Oxygen Saturation 99.8 % (94-97); ABG PCO2 36 mmHg (35-45); ABG PH 7.43 (7.35-7.45); ABG PO2 234 mmHg (83-108); ABG TCO2 25 mmol/L (19-24)
[2016-08-25 08:54] LABS: ABG HCO3 23 mmol/L (21-25); ABG PCO2 35 mmHg (35-45); ABG PH 7.44 (7.35-7.45); ABG PO2 87 mmHg (83-108); ABG TCO2 25 mmol/L (19-24)
[2016-08-25 08:55] LABS: ABG PCO2 44 mmHg (35-45); ABG PH 7.38 (7.35-7.45)
[2016-08-25 08:56] LABS: ABG HCO3 26 mmol/L (21-25); ABG Oxygen Saturation 99.9 % (94-97); ABG PO2 330 mmHg (83-108); ABG TCO2 27 mmol/L (19-24)
[2016-08-25 08:57] LABS: ABG Base Excess 0.1 mmol/L; ABG HCO3 26 mmol/L (21-25); ABG Oxygen Saturation 99.7 % (94-97); ABG PCO2 53 mmHg (35-45); ABG PH 7.32 (7.35-7.45); ABG PO2 228 mmHg (83-108); ABG TCO2 28 mmol/L (19-24)
[2016-08-25 08:58] LABS: ABG Base Excess -1.5 mmol/L; ABG HCO3 24 mmol/L (21-25); ABG Oxygen Saturation 99.8 % (94-97); ABG PCO2 46 mmHg (35-45); ABG PH 7.34 (7.35-7.45); ABG PO2 253 mmHg (83-108); ABG TCO2 25 mmol/L (19-24)
[2016-08-25 08:59] LABS: ABG HCO3 23 mmol/L (21-25); ABG Oxygen Saturation 99.9 % (94-97); ABG PCO2 44 mmHg (35-45); ABG PH 7.34 (7.35-7.45); ABG PO2 297 mmHg (83-108); ABG TCO2 25 mmol/L (19-24)
[2016-08-25 09:00] LABS: ABG HCO3 23 mmol/L (21-25); ABG Oxygen Saturation 93.7 % (94-97); ABG PCO2 39 mmHg (35-45); ABG PH 7.39 (7.35-7.45); ABG PO2 70 mmHg (83-108); ABG TCO2 24 mmol/L (19-24)
[2016-08-25] MEDS ORDERED: PANTOPRAZOLE 40 MG/10 ML VIAL IVP SCH (09:00)
[2016-08-25] MEDS ORDERED: METOPROLOL TARTRATE 12.5 MG TAB PO SCH (09:00)
[2016-08-25] MEDS ORDERED: CLOPIDOGREL 75 MG TAB PO SCH (09:00)
[2016-08-25 09:08] LABS: Glucose,Whole Blood 128 mg/dL (75-99)
[2016-08-25 09:51] LABS: Glucose,Whole Blood 124 mg/dL (75-99)
--- NOTE | 2016-08-25 10:05 | P.CRDCN ---
History of Present Illness Consult date: 08/25/16 History of present illness: This is a pleasant 45-year-old gentleman who sees Dr. Murry as an outpatient who was admitted to the hospital yesterday and underwent an elective mitral valve repair for symptomatic severe mitral regurgitation. This is postoperative day #1. The patient seems to be doing well overall. He is hemodynamically stable with marginally low blood pressure and marginal heart rate. In terms of rhythm, he is in [place]enckebach rhythm and the dose of metoprolol was held yesterday. He is on dual antiplatelet therapy with aspirin and Plavix as well as he is on statin. Past Medical History Past Medical History: Hyperlipidemia, Hypertension Additional Past Medical History / Comment(s): HX HEART MURMUR History of Any Multi-Drug Resistant Organisms: None Reported Past Surgical History: Heart Catheterization Additional Past Surgical History / Comment(s): SHAZIA Past Anesthesia/Blood Transfusion Reactions: No Reported Reaction Additional Past Anesthesia/Blood Transfusion Reaction / Comment(s): NO PRIOR SX OR ANESTHESIA HX Past Psychological History: No Psychological Hx Reported Smoking Status: Never smoker Past Alcohol Use History: None Reported Past Drug Use History: None Reported - Past Family History Mother Family Medical History: Cancer Medications and Allergies Home Medications Medication Instructions Recorded Confirmed Type Aspirin EC [Ecotrin] 81 mg PO HS 08/16/16 08/24/16 History Atorvastatin [Lipitor] 20 mg PO HS 08/16/16 08/24/16 History Olmesartan Medoxomil [Benicar] 40 mg PO HS 08/16/16 08/24/16 History Mupirocin 2% Nasal Oint [Bactroban 1 applic NASAL BID 08/20/16 08/24/16 History 2% Nasal Oint] Allergies Allergy/AdvReac Type Severity Reaction Status Date / Time No Known Allergies Allergy Verified 08/24/16 06:02 Physical Exam Vitals: Vital Signs Temp Pulse Pulse Resp BP Pulse Ox 08/25/16 09:00 77 18 94 L 08/25/16 08:43 76 08/25/16 08:31 75 08/25/16 08:00 98.6 F 68 18 92 L 08/25/16 07:00 75 36 H 94 L 08/25/16 06:00 78 22 89 L 08/25/16 05:00 84 32 H 92 L 08/25/16 04:00 106 H 40 H 91 L 08/25/16 03:27 102 H 08/25/16 03:16 103 H 08/25/16 03:00 103 H 30 H 92 L 08/25/16 02:00 103 H 36 H 94 L 08/25/16 01:00 102 H 20 92 L 08/25/16 00:00 102 H 25 H 92 L 08/24/16 23:45 102 H 26 H 94 L 08/24/16 23:22 56 L 08/24/16 23:02 99 08/24/16 23:00 99 33 H 91 L 08/24/16 22:00 100 19 94 L 08/24/16 21:00 101 H 32 H 95 08/24/16 20:27 98 08/24/16 20:16 96 08/24/16 20:00 100 95 08/24/16 19:00 100 90/59 95 08/24/16 18:00 102 H 90/59 94 L 08/24/16 17:00 100 96 08/24/16 16:40 101 H 96 08/24/16 16:30 103 H 95 08/24/16 16:20 103 H 95 08/24/16 16:10 102 H 95 08/24/16 16:00 103 H 86 16 97 08/24/16 15:50 98 100 08/24/16 15:40 97 99 08/24/16 15:30 93 98 08/24/16 15:20 93 98 Intake and Output 08/24/16 08/25/16 08/25/16 22:59 06:59 14:59 Intake Total 8414.989 9364 536.05 Output Total 784 696 238 Balance 319.195 840 298.05 Intake: IV 1074 836 280 ACETAMINOPHEN IV (For NPO 100 200 ) 1,000 mg In Empty Bag 1 bag @ 400 mls/hr IVPB Q6HR [facility] Rx#:[id number] Albumin Human 5% 250 ml 500 In Empty Bag 1 bag @ 250 mls/hr IVPB Q1HR PRN Rx#: [id number] Co/CI 40 LR 350 400 150 Pressure Bag 24 96 30 ceFAZolin 2 gm In Sodium 100 100 100 Chloride 0.9% 100 ml @ 100 mls/hr IVPB Q8HR DORINDA Rx#:[id number] Intake, IV Titration 29.195 200 6.05 Amount Insulin Regular 100 unit 3.258 6.05 In Sodium Chloride 0.9% 100 ml @ Per Protocol IV .Q0M [facility] Rx#:[id number] Magnesium Sulfate-D5w Pmx 200 1 gm In Dextrose/Water 1 100ml.bag @ 100 mls/hr IVPB Q1H DORIN[facility] Rx#: [id number] Propofol 500 mg In Empty 25.937 Bag 1 bag @ Titrate IV . Q0M [facility] Rx#:[id number] Oral 500 250 Output: Chest Tube Drainage 207 284 96 Chest Tube Mediastinal 166 216 90 Chest Tube Right 41 68 6 Urine 577 412 142 Other: Voiding Method Indwelling Catheter Indwelling Catheter Indwelling Catheter Weight 88.1 kg ABP, PAP, CO, CI - Last 8 Hours Arterial Blood Pressure 104/57 Arterial Blood Pressure 107/60 Arterial Blood Pressure 107/60 Arterial Blood Pressure 101/52 Arterial Blood Pressure 82/43 Arterial Blood Pressure 1/1 Arterial Blood Pressure 98/61 Pulmonary Artery Pressure 34/22 Pulmonary Artery Pressure 29/15 Pulmonary Artery Pressure 30/19 Pulmonary Artery Pressure 47/21 Pulmonary Artery Pressure 38/22 Pulmonary Artery Pressure 36/22 Cardiac Output 10.7 Cardiac Output 10.7 Cardiac Output 8.6 Cardiac Index 5.4 - Constitutional General appearance: no acute distress - Respiratory Respiratory: bilateral: diminished - Cardiovascular Rhythm: regular Results 08/25/16 03:00 08/25/16 03:00 Cardiac Enzymes 08/24/16 08/25/16 Range/Units 15:26 03:00 AST 38 45 (17-59) U/L Coagulation 08/24/16 08/24/16 08/25/16 Range/Units 15:26 18:40 03:00 PT 11.9 11.8 11.9 (9.0-12.0) sec APTT 25.9 (22.0-30.0) sec CBC 08/24/16 08/24/16 08/24/16 Range/Units 15:26 18:40 20:20 WBC 9.5 9.4 8.1 (3.8-10.6) k/uL RBC 3.85 L 3.77 L 3.48 L (4.30-5.90) m/uL Hgb 11.9 L 12.0 L 10.8 L (13.0-17.5) gm/dL Hct 36.8 L 35.9 L 33.0 L (39.0-53.0) % Plt Count 107 L 114 L 107 L (150-450) k/uL 08/24/16 08/25/16 Range/Units 21:35 03:00 WBC 7.6 7.9 (3.8-10.6) k/uL RBC 3.43 L 3.32 L (4.30-5.90) m/uL Hgb 10.8 L 10.8 L (13.0-17.5) gm/dL Hct 33.2 L 31.5 L (39.0-53.0) % Plt Count 112 L 108 L (150-450) k/uL Comprehensive Metabolic Panel 08/24/16 08/24/16 08/25/16 Range/Units 15:26 18:40 03:00 Sodium 141 140 140 (137-145) mmol/L Potassium 4.3 4.2 4.0 (3.5-5.1) mmol/L Chloride 109 H 108 H 108 H (98-107) mmol/L Carbon Dioxide 25 24 24 (22-30) mmol/L BUN 12 13 15 (9-20) mg/dL Creatinine 0.74 0.75 0.70 (0.66-1.25) mg/dL Glucose 108 H 135 H 126 H (74-99) mg/dL Calcium 8.1 L 7.9 L 8.0 L (8.4-10.2) mg/dL AST 38 45 (17-59) U/L ALT 28 29 (21-72) U/L Alkaline Phosphatase 46 42 (38-126) U/L Total Protein 5.2 L 5.3 L (6.3-8.2) g/dL Albumin 3.2 L 3.4 L (3.5-5.0) g/dL Current Medications Generic Name Dose Route Start Last Admin Trade Name Freq PRN Reason Stop Dose Admin Hydrocodone Bitart/Acetaminophen 2 each 08/25/16 14:50 [place] 5-325 PO Q4HR PRN Severe Pain Hydrocodone Bitart/Acetaminophen 1 each 08/25/16 14:50 [place] 5-325 PO Q4HR PRN Moderate Pain Albuterol/Ipratropium 3 ml 08/25/16 14:51 08/25/16 03:24 Duoneb 0.5 Mg-3 Mg/3 Ml Soln INHALATION 3 ml RT-Q2H PRN Administration Shortness Of Breath Or Wheezing Albuterol/Ipratropium 3 ml 08/25/16 08:00 08/25/16 08:30 Duoneb 0.5 Mg-3 Mg/3 Ml Soln INHALATION 3 ml RT-QID DORINDA Administration Aspirin 325 mg 08/25/16 09:00 08/25/16 07:49 Aspirin PO 325 mg DAILY DORINDA Administration Atorvastatin Calcium 40 mg 08/25/16 09:00 08/25/16 07:49 Lipitor PO 40 mg DAILY DORINDA Administration Benzocaine/Menthol 1 each 08/24/16 15:32 Cepacol Lozenge MUCOUS MEM Q2H PRN Sore Throat Bisacodyl 10 mg 08/25/16 14:51 Dulcolax RECTAL DAILY PRN Constipation Clopidogrel Bisulfate 75 mg 08/25/16 09:00 08/25/16 07:49 Plavix PO 75 mg DAILY DORINDA Administration Heparin Sodium (Porcine) 5,000 unit 08/25/16 00:00 08/25/16 07:48 Heparin SQ 5,000 unit Q8HR DORINDA Administration Acetaminophen 1,000 mg/ IV 100 mls @ 400 mls/hr 08/24/16 18:00 08/25/16 06:19 Solution IVPB 08/25/16 18:01 400 mls/hr Q6HR DORINDA Administration Albumin Human 250 ml/ IV 250 mls @ 250 mls/hr 08/24/16 15:32 08/24/16 19:34 Solution IVPB 08/26/16 15:33 250 mls/hr Q1HR PRN Administration For Volume Calcium Gluconate 2,000 mg/ 120 mls @ 100 mls/hr 08/24/16 15:32 Sodium Chloride IVPB 08/25/16 15:33 ONCE PRN Ionized Calcium less than 4.4 Lactated Ringer's 1,000 mls @ 20 mls/hr 08/24/16 15:32 08/24/16 16:26 Lactated Ringers IV 50 mls/hr .Q24H DORINDA Administration Insulin Human Regular 100 unit 101 mls @ 0 mls/hr 08/24/16 17:30 08/25/16 08: 35 / Sodium Chloride IV 1 unit/hr .Q0M DORINDA 1.01 mls/hr Protocol Titration Per Protocol Ketorolac Tromethamine 15 mg 08/25/16 07:35 Toradol IVP 08/28/16 07:36 Q6H PRN Moderate Pain Magnesium Hydroxide 2,400 mg 08/25/16 14:51 Milk Of Magnesia PO BID PRN Constipation Metoclopramide HCl 10 mg 08/24/16 15:32 Reglan IVP Q4H PRN Nausea And Vomiting Miscellaneous Information 1 each 08/24/16 15:32 Magnesium Per Protocol MISCELLANE DAILY PRN Per Protocol Protocol Miscellaneous Information 1 each 08/24/16 15:32 Phosphorus Per Protocol MISCELLANE DAILY PRN Per Protocol Protocol Miscellaneous Information 1 each 08/24/16 15:32 Potassium Per Protocol MISCELLANE DAILY PRN Per Protocol Protocol Morphine Sulfate 2 mg 08/24/16 15:32 08/25/16 07:18 Morphine Sulfate (Inj) IVP 2 mg Q2H PRN Administration Severe Pain Mupirocin 1 applic 08/24/16 21:00 08/25/16 07:50 Bactroban Oint NASAL 08/27/16 21:01 1 applic BID DORINDA Administration Ondansetron HCl 4 mg 08/24/16 15:32 Zofran IVP Q6HR PRN Nausea And Vomiting Oxycodone HCl 10 mg 08/24/16 15:32 08/25/16 03:41 Oxyir PO 08/25/16 15:33 10 mg Q4H PRN Administration Severe Pain Oxycodone HCl 5 mg 08/24/16 15:32 08/25/16 06:17 Oxyir PO 08/25/16 15:33 5 mg Q4H PRN Administration Moderate Pain Pantoprazole Sodium 40 mg 08/26/16 07:30 Protonix PO AC-BRKFST DORINDA Senna/Docusate Sodium 2 each 08/25/16 21:00 Senokot-S PO HS DORINDA Sodium Chloride 10 ml 08/24/16 21:00 08/25/16 07:51 Saline Flush IV Not Given BID DORINDA Intake and Output 08/24/16 08/25/16 08/25/16 22:59 06:59 14:59 Intake Total 3443.410 5065 536.05 Output Total 784 696 238 Balance 319.195 840 298.05 Intake: IV 1074 836 280 ACETAMINOPHEN IV (For NPO 100 200 ) 1,000 mg In Empty Bag 1 bag @ 400 mls/hr IVPB Q6HR [facility] Rx#:[id number] Albumin Human 5% 250 ml 500 In Empty Bag 1 bag @ 250 mls/hr IVPB Q1HR PRN Rx#: [id number] Co/CI 40 LR 350 400 150 Pressure Bag 24 96 30 ceFAZolin 2 gm In Sodium 100 100 100 Chloride 0.9% 100 ml @ 100 mls/hr IVPB Q8HR [facility] Rx#:[id number] Intake, IV Titration 29.195 200 6.05 Amount Insulin Regular 100 unit 3.258 6.05 In Sodium Chloride 0.9% 100 ml @ Per Protocol IV .Q0M [facility] Rx#:[id number] Magnesium Sulfate-D5w Pmx 200 1 gm In Dextrose/Water 1 100ml.bag @ 100 mls/hr IVPB Q1H [facility] Rx#: [id number] Propofol 500 mg In Empty 25.937 Bag 1 bag @ Titrate IV . Q0M [facility] Rx#:[id number] Oral 500 250 Output: Chest Tube Drainage 207 284 96 Chest Tube Mediastinal 166 216 90 Chest Tube Right 41 68 6 Urine 577 412 142 Other: Voiding Method Indwelling Catheter Indwelling Catheter Indwelling Catheter Weight 88.1 kg 08/25/16 03:00 08/25/16 03:00 Assessment and Plan Plan: Assessment #1 status post mitral valve repair #2 mild nonobstructive CAD Plan #1 the metoprolol was held and I agree with that #2 continue the current medical treatment #3 follow-up with the patient
--- NOTE | 2016-08-25 11:01 | CONS ---
DATE OF CONSULTATION: This is a 45-year-old male who has a history of severe mitral regurgitation. He underwent a mitral valve repair and today is postop day #1. The nurses called me yesterday and he had good weaning parameters. His blood gases showed a borderline oxygenation, but because of his positive cuff leak and his good weaning parameters and the fact he was awake and alert, we chose to go ahead and extubate him. He is doing relatively well. His surgery was mitral valve repair for mitral regurgitation as well as a left atrial appendage excision. Currently, he is on O2 at 15 L high flow. He getting IV of LR at 50 mL an hour. He is getting an insulin drip at 1 unit an hour. He is postop day #1. He is getting updrafts q.i.d. and p.r.n. He is doing reasonably well and apparently Thoracic Surgery is going to give him some additional diuretic. His medical history is positive for mitral valve disease with mitral valve regurgitation, hypertension, and hyperlipidemia. Surgical history includes a transesophageal echocardiogram and cardiac catheterization. Social history is negative for tobacco or alcohol. No illicit drug use. 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 Family history is positive for cancer. Home medications only include Benicar, Bactrim ointment, Lipitor and aspirin. Allergies are none. REVIEW OF SYSTEMS: CONSTITUTIONAL: Negative. NEUROLOGICAL: Negative. HEENT: Negative. CARDIOVASCULAR: Negative except for the mitral valve disease and mitral regurgitation. PULMONARY: Negative. GI/: Negative. RHEUMATOLOGIC: Negative. IMMUNOLOGIC: Negative. ENDOCRINOLOGIC: Negative. Current vital signs include temperature 98.6, heart rate 77, respiratory rate 18, blood pressure 104/57, mean is not calculated here, central venous pressure is reported as 16, saturations 94% on 15 L high-flow. Appears in no acute distress. He is grimacing a bit from the pain. HEENT examination is grossly unremarkable. Mucous membranes are moist. No oral lesions. Neck is supple. Full range of motion. No adenopathy or thyromegaly. Neck veins are flat. Cordis catheter in place. A PA catheter in place. Cardiovascular examination reveals distant heart sounds. S1, S2 normal. Soft murmurs noted. No S3, S4. Lungs are relatively clear, a few scattered rhonchi. No wheezes or crackles. Abdomen is soft. Bowel sounds are heard. Extremities are intact. No cyanosis, clubbing or edema. Labs are reviewed. White count 7.9, hemoglobin 10.8, hematocrit 31.5, platelet count 108,000. Blood gases from yesterday were noted. Sodium 140l, potassium 4, chloride is 108, CO2 of 24, BUN and creatinine were 15 and 0.7, calcium 8. Albumin 3.4. A chest x-ray from 08/25 shows bilateral infiltrates with pleural effusions, which are stable. Medications are reviewed. Updrafts are reviewed. ASSESSMENT: 1. Postoperative day #1 status post mitral valve repair for severe mitral regurgitation. 2. Postoperative day #1 status post left atrial appendage excision. 3. History of essential hypertension. 4. History of hyperlipidemia. 5. Postoperative respiratory failure with ventilator requirements, resolved. PLAN: Will continue to follow. The patient is on appropriate updrafts. Will recommend incentive spirometry. Will follow to discharge. X-rays will be reviewed. No additional recommendations are made. Prognosis is generally good.
[2016-08-25 11:23] LABS: Glucose,Whole Blood 114 mg/dL (75-99)
[2016-08-25] MEDS: ALBUMIN HUMAN 5% 250 ML in EMPTY BAG 1 BAG IVPB PRN ×3 (11:51→11:53)
[2016-08-25 12:25] LABS: Glucose,Whole Blood 109 mg/dL (75-99)
[2016-08-25 13:47] LABS: Glucose,Whole Blood 122 mg/dL (75-99)
[2016-08-25 14:07] LABS: Glucose,Whole Blood 126 mg/dL (75-99)
[2016-08-25] MEDS ORDERED: ALBUMIN HUMAN 5% 250 ML in EMPTY BAG 1 BAG IVPB STA (14:37)
[2016-08-25] MEDS ORDERED: HYDROcodone/APAP 5-325MG 1 EACH TAB PO PRN (14:50)
[2016-08-25] MEDS ORDERED: MAGNESIUM HYDROXIDE 2,400 MG/10 ML CUP PO PRN (14:51)
[2016-08-25] MEDS ORDERED: BISACODYL 10 MG SUPP RECTAL PRN (14:51)
[2016-08-25 14:54] LABS: CH 32.1; HCT 27.6 % (39.0-53.0); HDW 2.39; MCH 31.6 pg (25.0-35.0); MCHC 33.4 g/dL (31.0-37.0); MCV 94.7 fL (80.0-100.0); Mean Platelet Volume 9.1; RBC 2.91 m/uL (4.30-5.90); WBC 7.1 k/uL (3.8-10.6)
[2016-08-25 14:55] LABS: HGB 9.2 gm/dL (13.0-17.5)
[2016-08-25] MEDS ORDERED: CALCIUM GLUCONATE 1,000 MG in SODIUM CHLORIDE 0.9% 100 ML IVPB ONE (15:00)
[2016-08-25 15:26] LABS: Glucose,Whole Blood 131 mg/dL (75-99)
[2016-08-25 16:19] LABS: Glucose,Whole Blood 123 mg/dL (75-99)
[2016-08-25] MEDS: KETOROLAC 30 MG/ML 1 ML VIAL IVP PRN (16:49)
[2016-08-25 17:03] LABS: Glucose,Whole Blood 105 mg/dL (75-99)
[2016-08-25 18:05] LABS: Glucose,Whole Blood 129 mg/dL (75-99)
[2016-08-25 19:04] LABS: Glucose,Whole Blood 135 mg/dL (75-99)
--- NOTE | 2016-08-25 20:51 | PN ---
DATE OF SERVICE: 08/25/2016 PRESENTING COMPLAINT: Mitral valve replacement surgery-medical management. INTERVAL HISTORY: This is a 45-year-old male who is postop day one from a mitral valve replacement. Today, patient is awake, sitting up in the chair, looks a bit tired, however, appears relaxed does complain of some mid sternal chest pain relative to the surgery. States pain medications does a good job of taking care of his pain. Review of systems done for constitutional, cardiovascular, GI, pulmonary, with relevant findings as above. CURRENT MEDICATIONS: [place], albumin, Plavix, Lipitor, IV insulin, Protonix, Senokot, heparin. PHYSICAL EXAMINATION: VITAL SIGNS: Temperature 98.7, pulse 96, respiratory rate 23, blood pressure 97/46, oxygen saturation 92% on high flow nasal cannula. GENERAL APPEARANCE: Patient sitting up looks relaxed. No acute distress noted or voiced. EYES: Pupils equal. Conjunctivae normal. NECK: JVD not raised. Mass not palpable. Lung sounds diminished bilaterally. Scattered crackles noted throughout, both bilateral lung dodson. Respiratory effort normal. Unlabored. CARDIOVASCULAR: S1, S2 normal. Trace edema noted to bilateral lower extremities. Patient has two chest tubes in place. Mediastinal and right chest wall chest tubes both are free from air leaks. ABDOMEN: Soft, nontender. Liver and spleen not palpable. PSYCHIATRIC: Alert and oriented x3. Mood and affect somewhat flat. Chest wall: Midline. Chest wall incision noted. Surgical dressing remains in place. No shadowing of any drainage noted. Two chest tubes in place one to the right chest wall, one to the mediastinal area. Both draining serosanguineous drainage. INVESTIGATIONS: Chest x-ray bilateral infiltrates and pleural effusions are stable. WBC 7.1, hemoglobin 9.2, platelet count 87. Sodium 140, potassium 4.0. Total protein 5.3, albumin 3.4. ASSESSMENT: 1. Mitral valve repair for mitral valve regurgitation. 2. Essential hypertension. 3. Hyperlipidemia. 4. Acute postoperative blood loss anemia as expected from surgery. 5. Delusional thrombocytopenia. PLAN: Patient remains on the insulin drip at 1 unit an hour with lactated Ringer's. All other drips stopped with the exception of maintenance fluids. Patient will continue to work with physical therapy and occupational therapy to regain strength and returned home to normal functioning. Patient was seen and examined by nurse practitioner Geena Headley, and all elements of the case was discussed with attending, Dr. Waldron. I performed a history and physical examination of this patient and discussed the same with the dictator. I agree with the dictator's note. Any additional findings/opinions, etc. will be noted.
[2016-08-25] MEDS: LACTATED RINGERS 1,000 ML IV SCH (21:08)
[2016-08-25] MEDS: SENNOSIDES-DOCUSATE SODIUM 1 EACH TAB PO SCH (21:11)
[2016-08-25 21:47] LABS: Glucose,Whole Blood 132 mg/dL (75-99)
[2016-08-25 22:55] LABS: Glucose,Whole Blood 127 mg/dL (75-99)
[2016-08-25] MEDS: HYDROcodone/APAP 5-325MG 1 EACH TAB PO PRN (23:01)
[2016-08-26 00:43] LABS: Glucose,Whole Blood 112 mg/dL (75-99)
[2016-08-26] MEDS: KETOROLAC 30 MG/ML 1 ML VIAL IVP PRN ×3 (00:48→17:05)
[2016-08-26 01:36] LABS: Glucose,Whole Blood 127 mg/dL (75-99)
[2016-08-26 03:07] LABS: Glucose,Whole Blood 121 mg/dL (75-99)
[2016-08-26 04:16] LABS: Glucose,Whole Blood 110 mg/dL (75-99)
[2016-08-26 04:26] LABS: Basophils % (A) 0 %; CH 31.2; Eosinophils % (A) 0 %; HCT 26.4 % (39.0-53.0); HDW 2.22; HGB 8.8 gm/dL (13.0-17.5); Luc # (Auto) 0.14; Luc % (Auto) 2; Lymphocytes # (A) 1.2 k/uL (1.0-4.8); Lymphocytes % (A) 16 %; MCH 31.6 pg (25.0-35.0); MCHC 33.1 g/dL (31.0-37.0); MCV 95.3 fL (80.0-100.0); Mean Platelet Volume 9.2; Monocytes # (A) 0.5 k/uL (0-1.0); Monocytes % (A) 7 %; Neutrophils # (A) 5.8 k/uL (1.3-7.7); Neutrophils % (A) 75 %; RBC 2.77 m/uL (4.30-5.90); RDW 13.1 % (11.5-15.5); WBC 7.7 k/uL (3.8-10.6); WBC (Perox) 7.55
[2016-08-26 04:32] LABS: INR 1.1 (<1.1); Prothrombin Time 11.4 sec (9.0-12.0)
[2016-08-26 04:43] LABS: Ionized Calcium 4.7 mg/dL (4.5-5.3)
[2016-08-26 04:51] LABS: ALT 21 U/L (21-72); AST 41 U/L (17-59); Alkaline Phosphatase 34 U/L (38-126); Anion Gap 6 mmol/L; Blood Urea Nitrogen 19 mg/dL (9-20); Calcium 8.2 mg/dL (8.4-10.2); Carbon Dioxide 27 mmol/L (22-30); Chloride 104 mmol/L (98-107); Glucose 111 mg/dL (74-99); Magnesium 2.1 mg/dL (1.6-2.3); Non-African American GFR(MDRD) >60 (>60 ml/min/1.73 sqM); Potassium 4.3 mmol/L (3.5-5.1); Sodium 137 mmol/L (137-145); Total Bilirubin 1.1 mg/dL (0.2-1.3); Total Protein 5.4 g/dL (6.3-8.2)
[2016-08-26 06:10] LABS: Glucose,Whole Blood 114 mg/dL (75-99)
[2016-08-26] MEDS: HYDROcodone/APAP 5-325MG 1 EACH TAB PO PRN ×2 (06:16→20:57)
[2016-08-26 06:46] LABS: Glucose,Whole Blood 107 mg/dL (75-99)
--- NOTE | 2016-08-26 07:15 | XR ---
EXAMINATION TYPE: XR chest 1V portable DATE OF EXAM: 08/26/2016 6:47 AM COMPARISON: Prior chest x-ray 01/23/2017 HISTORY: Postop cardiac surgery TECHNIQUE: Single frontal view of the chest is obtained. FINDINGS: Right-sided chest tube remains in place, patient is post median sternotomy. Heart is enlar ged. Bibasilar density persists, there is no pneumothorax. Median sternal drain remains in place. Atr ial appendage clipping is noted. Right jugular central venous catheter has been removed. IMPRESSION: Interval catheter removal. Otherwise essentially stable exam. Probable lower lobe atelec tasis and associated effusion.
--- NOTE | 2016-08-26 07:25 | PN ---
DATE OF SERVICE: 08/25/2016 ATTENDING NOTE: This patient was seen and examined by me earlier today. I reviewed the note of nurse practitioner, Ms. Headley. Any additional notes are below. Patient is status post mitral valve replacement. Sitting up in a chair, did tolerate a little bit of food. Breathing is a somewhat better, awake, answering questions. On exam, lungs decreased breath sounds. CARDIOVASCULAR: First and second sounds are normal. PSYCH: Alert and oriented x3. INVESTIGATIONS: Hemoglobin 9.2, platelets 87. ASSESSMENT: 1. Status post mitral valve repair. 2. Dilutional thrombocytopenia. 3. Acute postoperative blood loss anemia expected. PLAN: Continue current medication and treatment plan. Patient ( ) of insulin drip. Care was discussed with the patient.
--- NOTE | 2016-08-26 07:42 | P.PN ---
<Rogelio Owens Lore - Last Filed: 08/26/16 07:42> Progress Note - Text CV Surgery Nursing Postoperative day #1, status post elective Patient awake and alert, no distress noted. He is currently sitting up to the bedside chair. He is complaining of pain 5 out of 10 on the pain scale to his chest tube insertion sites. Vital Signs: Afebrile, current temperature is 99.9F Vital Signs - 24 hr 08/24/16 08/24/16 08/24/16 15:20 15:30 15:40 Pulse Rate 93 93 97 Pulse Rate [ Pulse Oximetery ] Respiratory Rate Blood Pressure O2 Sat by Pulse 98 98 99 Oximetry 08/24/16 08/24/16 08/24/16 15:50 16:00 16:10 Pulse Rate 98 103 H 102 H Pulse Rate [ 86 Pulse Oximetery ] Respiratory 16 Rate Blood Pressure O2 Sat by Pulse 100 97 95 Oximetry 08/24/16 08/24/16 08/24/16 16:20 16:30 16:40 Pulse Rate 103 H 103 H 101 H Pulse Rate [ Pulse Oximetery ] Respiratory Rate Blood Pressure O2 Sat by Pulse 95 95 96 Oximetry 08/24/16 08/24/16 08/24/16 17:00 18:00 19:00 Pulse Rate 100 102 H 100 Pulse Rate [ Pulse Oximetery ] Respiratory Rate Blood Pressure 90/59 90/59 O2 Sat by Pulse 96 94 L 95 Oximetry 08/24/16 08/24/16 08/24/16 20:00 20:16 20:27 Pulse Rate 100 96 98 Pulse Rate [ Pulse Oximetery ] Respiratory Rate Blood Pressure O2 Sat by Pulse 95 Oximetry 08/24/16 08/24/16 08/24/16 21:00 22:00 23:00 Pulse Rate 101 H 100 99 Pulse Rate [ Pulse Oximetery ] Respiratory 32 H 19 33 H Rate Blood Pressure O2 Sat by Pulse 95 94 L 91 L Oximetry 08/24/16 08/24/16 08/24/16 23:02 23:22 23:45 Pulse Rate 99 56 L 102 H Pulse Rate [ Pulse Oximetery ] Respiratory 26 H Rate Blood Pressure O2 Sat by Pulse 94 L Oximetry 08/25/16 08/25/16 08/25/16 00:00 01:00 02:00 Pulse Rate 102 H 102 H 103 H Pulse Rate [ Pulse Oximetery ] Respiratory 25 H 20 36 H Rate Blood Pressure O2 Sat by Pulse 92 L 92 L 94 L Oximetry 08/25/16 08/25/16 08/25/16 03:00 03:16 03:27 Pulse Rate 103 H 103 H 102 H Pulse Rate [ Pulse Oximetery ] Respiratory 30 H Rate Blood Pressure O2 Sat by Pulse 92 L Oximetry 08/25/16 08/25/16 08/25/16 04:00 05:00 06:00 Pulse Rate 106 H 84 78 Pulse Rate [ Pulse Oximetery ] Respiratory 40 H 32 H 22 Rate Blood Pressure O2 Sat by Pulse 91 L 92 L 89 L Oximetry 08/25/16 07:00 Pulse Rate 75 Pulse Rate [ Pulse Oximetery ] Respiratory 36 H Rate Blood Pressure O2 Sat by Pulse 94 L Oximetry ABP, PAP, CO, CI - Last 8 Hours Arterial Blood Pressure 107/60 Arterial Blood Pressure 101/52 Arterial Blood Pressure 82/43 Arterial Blood Pressure 1/1 Arterial Blood Pressure 98/61 Arterial Blood Pressure 102/58 Arterial Blood Pressure 96/57 Pulmonary Artery Pressure 29/15 Pulmonary Artery Pressure 30/19 Pulmonary Artery Pressure 47/21 Pulmonary Artery Pressure 38/22 Pulmonary Artery Pressure 36/22 Pulmonary Artery Pressure 39/20 Pulmonary Artery Pressure 31/18 Cardiac Output 10.7 Cardiac Output 10.7 Cardiac Output 8.6 Cardiac Output 8.6 Cardiac Output 8.6 Cardiac Index 5.4 Labs: Short CBC 08/24/16 08/24/16 08/24/16 Range/Units 15:26 18:40 20:20 WBC 9.5 9.4 8.1 (3.8-10.6) k/uL Hgb 11.9 L 12.0 L 10.8 L (13.0-17.5) gm/dL Hct 36.8 L 35.9 L 33.0 L (39.0-53.0) % Plt Count 107 L 114 L 107 L (150-450) k/uL Neutrophils # 7.9 H 8.0 H (1.3-7.7) k/uL 08/24/16 08/25/16 Range/Units 21:35 03:00 WBC 7.6 7.9 (3.8-10.6) k/uL Hgb 10.8 L 10.8 L (13.0-17.5) gm/dL Hct 33.2 L 31.5 L (39.0-53.0) % Plt Count 112 L 108 L (150-450) k/uL Neutrophils # 6.9 6.7 (1.3-7.7) k/uL BMP 08/24/16 08/24/16 08/25/16 15:26 18:40 03:00 Sodium 141 140 140 Potassium 4.3 4.2 4.0 Chloride 109 H 108 H 108 H Carbon Dioxide 25 24 24 BUN 12 13 15 Creatinine 0.74 0.75 0.70 Glucose 108 H 135 H 126 H Calcium 8.1 L 7.9 L 8.0 L Liver Function 08/24/16 08/25/16 Range/Units 15:26 03:00 Total Bilirubin 1.2 1.2 (0.2-1.3) mg/dL AST 38 45 (17-59) U/L ALT 28 29 (21-72) U/L Alkaline Phosphatase 46 42 (38-126) U/L Albumin 3.2 L 3.4 L (3.5-5.0) g/dL ABG ABG pH 7.34 (7.35-7.45) L 08/24/16 19:28 ABG pCO2 42 mmHg (35-45) 08/24/16 19:28 ABG pO2 63 mmHg (83-108) L 08/24/16 19:28 ABG O2 Saturation 93.0 % (94-97) L 08/24/16 19:28 PT/INR, D-dimer PT 11.9 sec (9.0-12.0) 08/25/16 03:00 INR 1.2 (<1.1) 08/25/16 03:00 IV Fluids: Lactated Ringer's at 50 mL per hour Insulin drip at 1 unit per hour. Cardiac output: 10.7 Cardiac index: 5.4 Pulmonary artery pressures: CVP: 15 Lungs: Essentially clear throughout, diminished bilateral bases. Respirations are symmetrical and unlabored. O2 sat: 94% on 15 L high flow oxygen. I/S: 500-750 mL, reviewed with the patient important of using his incentive spirometry every hour while awake. Patient demonstrated proper use of incentive incentive spirometry but will need some continued coaching on the use. Heart: S1S2, regular rhythm and rate, negative for S3, gallop or murmur. Bedside telemetry showing Mobitz type I heart block heart rate 69. Sternum stable, chest incision clean with dressing clean and dry. Heart hugger in place, patient is demonstrating proper use of his heart hugger. Knee-high LISA hose and sequential compression devices in place to his bilateral lower extremity Rob. Abdomen: Soft, Positive bowel sounds present in all 4 quadrants. CBGs: 128-132 mg/dL in the last 24 hours. U/O: Adequate, Alves catheter for accurate I&O. 380 mL output in the last 8 hours. Chest Tubes: Mediastinal chest tube without air leak, 205 mL output in the last 8 hours, 450 mL output since surgery. It remains to low continuous wall suction and draining thin serosanguineous drainage. Right pleural chest tube without air leak, 60 mL output in the last 8 hours, 110 mL output since surgery. It remains to low continuous wall suction and is draining thin serosanguineous drainage. 24 hr Total: Intake & Output 08/23/16 08/24/16 08/25/16 08/26/16 06:59 06:59 06:59 06:59 Intake Total 2671.195 62 Output Total 5930 62 Balance -3258.805 0 Weight 83.574 kg 88.1 kg Active Medications Hydrocodone Bitart/Acetaminophen ([place]ippey 5-325) 2 each PO Q4HR PRN PRN Reason: Severe Pain Hydrocodone Bitart/Acetaminophen ([place]ippey 5-325) 1 each PO Q4HR PRN PRN Reason: Moderate Pain Albuterol/Ipratropium (Duoneb 0.5 Mg-3 Mg/3 Ml Soln) 3 ml INHALATION RT-Q2H PRN PRN Reason: Shortness Of Breath Or Wheezing Last Admin: 08/25/16 03:24 Dose: 3 ml Albuterol/Ipratropium (Duoneb 0.5 Mg-3 Mg/3 Ml Soln) 3 ml INHALATION RT-QID [facility] Aspirin (Aspirin) 325 mg PO DAILY [facility] Last Admin: 08/25/16 07:49 Dose: 325 mg Atorvastatin Calcium (Lipitor) 40 mg PO DAILY [facility] Last Admin: 08/25/16 07:49 Dose: 40 mg Benzocaine/Menthol (Cepacol Lozenge) 1 each MUCOUS MEM Q2H PRN PRN Reason: Sore Throat Bisacodyl (Dulcolax) 10 mg RECTAL DAILY PRN PRN Reason: Constipation Clopidogrel Bisulfate (Plavix) 75 mg PO DAILY [facility] Last Admin: 08/25/16 07:49 Dose: 75 mg Heparin Sodium (Porcine) (Heparin) 5,000 unit SQ Q8HR [facility] Last Admin: 08/25/16 07:48 Dose: 5,000 unit Acetaminophen 1,000 mg/ IV (Solution) 100 mls @ 400 mls/hr IVPB Q6HR [facility] Stop: 08/25/16 18:01 Last Admin: 08/25/16 06:19 Dose: 400 mls/hr Albumin Human 250 ml/ IV (Solution) 250 mls @ 250 mls/hr IVPB Q1HR PRN PRN Reason: For Volume Stop: 08/26/16 15:33 Last Admin: 08/24/16 19:34 Dose: 250 mls/hr Calcium Gluconate 2,000 mg/ (Sodium Chloride) 120 mls @ 100 mls/hr IVPB ONCE PRN PRN Reason: Ionized Calcium less than 4.4 Stop: 08/25/16 15:33 Clevidipine 25 mg/ IV Solution 50 mls @ 2 mls/hr IV .Q24H DORINDA; 1 MG/HR PRN Reason: Protocol Last Admin: 08/25/16 07:43 Dose: Not Given Lactated Ringer's (Lactated Ringers) 1,000 mls @ 50 mls/hr IV .Q20H [facility] Last Admin: 08/24/16 16:26 Dose: 50 mls/hr Propofol 500 mg/ IV Solution 50 mls @ 0 mls/hr IV .Q0M [facility]; Titrate PRN Reason: Protocol Last Titration: 08/24/16 17:45 Dose: 0 mcg/kg/min, 0 mls/hr Cefazolin Sodium 2 gm/ Sodium (Chloride) 100 mls @ 100 mls/hr IVPB Q8HR [facility] Stop: 08/25/16 08:59 Last Admin: 08/25/16 07:48 Dose: 100 mls/hr Insulin Human Regular 100 unit (/ Sodium Chloride) 101 mls @ 0 mls/hr IV .Q0M [facility]; Per Protocol PRN Reason: Protocol Last Titration: 08/24/16 20:29 Dose: 0.5 unit/hr, 0.5 mls/hr Ketorolac Tromethamine (Toradol) 15 mg IVP Q6H PRN PRN Reason: Moderate Pain Stop: 08/28/16 07:36 Magnesium Hydroxide (Milk Of Magnesia) 2,400 mg PO BID PRN PRN Reason: Constipation Metoclopramide HCl (Reglan) 10 mg IVP Q4H PRN PRN Reason: Nausea And Vomiting Miscellaneous Information (Magnesium Per Protocol) 1 each MISCELLANE DAILY PRN ; Protocol PRN Reason: Per Protocol Miscellaneous Information (Phosphorus Per Protocol) 1 each MISCELLANE DAILY PRN ; Protocol PRN Reason: Per Protocol Miscellaneous Information (Potassium Per Protocol) 1 each MISCELLANE DAILY PRN ; Protocol PRN Reason: Per Protocol Morphine Sulfate (Morphine Sulfate (Inj)) 2 mg IVP Q2H PRN PRN Reason: Severe Pain Last Admin: 08/25/16 07:18 Dose: 2 mg Mupirocin (Bactroban Oint) 1 applic NASAL BID [facility] Stop: 08/27/16 21:01 Last Admin: 08/25/16 07:50 Dose: 1 applic Ondansetron HCl (Zofran) 4 mg IVP Q6HR PRN PRN Reason: Nausea And Vomiting Oxycodone HCl (Oxyir) 10 mg PO Q4H PRN PRN Reason: Severe Pain Stop: 08/25/16 15:33 Last Admin: 08/25/16 03:41 Dose: 10 mg Oxycodone HCl (Oxyir) 5 mg PO Q4H PRN PRN Reason: Moderate Pain Stop: 08/25/16 15:33 Last Admin: 08/25/16 06:17 Dose: 5 mg Pantoprazole Sodium (Protonix) 40 mg IVP DAILY [facility] Last Admin: 08/25/16 07:50 Dose: 40 mg Senna/Docusate Sodium (Senokot-S) 2 each PO HS [facility] Sodium Chloride (Saline Flush) 10 ml IV BID [facility] Last Admin: 08/25/16 07:51 Dose: Not Given Plan: 1. His beta ashly will be held this a.m. due to his bedside monitor showing Mobitz type I. 2. Continue aspirin, statin, Plavix, subcu heparin. 3. We will discontinue his [place] catheter and place his Cordis to continuous CVP monitoring. 4. Toradol be started for pain control. 5. GI and DVT prophylaxis in place, continue sequential compression devices. 6. Lasix 20 mg IV 1 today. 7. Wean oxygen as tolerated to maintain an O2 sat greater than or equal to 91% . Dr. Senior on for pulmonary management. 8. Encourage increase in his activity as tolerated. Physical therapy and cardiac rehab in place. 9. Further recommendations as patient progresses. <Noah Hankins - Last Filed: 08/26/16 19:24> Progress Note - Text The patient was seen and examined. I agree with the above assessment and plan. He appears to have type II heart block today. His beta ashly is currently on hold. He is on 15 L of nasal cannula oxygen. We'll give him a dose of Lasix. We'll try to get his pain under control. Toradol was added.
[2016-08-26] MEDS: IPRATROPIUM-ALBUTEROL 3 ML NEB INHALATION SCH ×4 (08:15→19:49)
[2016-08-26] MEDS: HEPARIN SODIUM,PORCINE 5,000 UNIT/ML 1 ML VIAL SQ SCH ×2 (08:37→17:10)
[2016-08-26] MEDS: PANTOPRAZOLE 40 MG TABLET PO SCH (08:37)
[2016-08-26] MEDS: MUPIROCIN 2% OINT 22 GM TUBE NASAL SCH ×2 (08:37→21:15)
[2016-08-26] MEDS: ASPIRIN 325 MG TAB PO SCH (08:37)
[2016-08-26] MEDS: ATORVASTATIN 40 MG TAB PO SCH (08:37)
[2016-08-26] MEDS ORDERED: FUROSEMIDE 10 MG/ML 2 ML VIAL IV STA (08:51)
[2016-08-26 08:57] LABS: Glucose,Whole Blood 110 mg/dL (75-99)
--- NOTE | 2016-08-26 09:11 | P.PN ---
Addendum entered and electronically signed by Samanta Rosenthal [facility] 08/26/16 10:37 : Addendum: Per Dr. Roy, continue Plavix 75 mg daily. Original Note: <Samanta Rosenthal - Last Filed: 08/26/16 09:10> Subjective Principal diagnosis: Severe mitral valve regurgitation from a flail P2 segment. Hypertension. Hyperlipidemia. Mild left ventricular dysfunction. POD #2 complex mitral valve repair with triangular resection of P2 and posterior annuloplasty using a 36 mm AnnuloFlex band. Exclusion of the left atrial appendage using a 50 mm atrial clip. Intraoperative transesophageal echocardiogram and epi-aortic scanning. Patient currently sitting up in a recliner in no apparent distress. States his pain is better controlled. Blood pressure better today. Objective - Vital Signs Vital signs: Vital Signs Temp 98.2 F 08/26/16 00:00 Pulse 97 08/26/16 07:00 Resp 20 08/26/16 07:00 BP 90/53 08/26/16 07:00 Pulse Ox 94 L 08/26/16 07:00 Intake & Output 08/25/16 08/26/16 08/26/16 18:59 06:59 18:59 Intake Total 1244.114 712.392 Output Total 1033 1369 Balance 211.114 -656.608 Intake: IV 884 707 ACETAMINOPHEN IV (For NPO 100 ) 1,000 mg In Empty Bag 1 bag @ 400 mls/hr IVPB Q6HR [facility] Rx#:[id number] LR 600 650 Pressure Bag 84 57 ceFAZolin 2 gm In Sodium 100 Chloride 0.9% 100 ml @ 100 mls/hr IVPB Q8HR [facility] Rx#:[id number] Intake, IV Titration 110.114 5.392 Amount Calcium Gluconate 1,000 100 mg In Sodium Chloride 0.9 % 100 ml @ 100 mls/hr IVPB ONCE ONE Rx#: [id number] Insulin Regular 100 unit 10.114 5.392 In Sodium Chloride 0.9% 100 ml @ Per Protocol IV .Q0M [facility] Rx#:[id number] Oral 250 Output: Chest Tube Drainage 308 264 Chest Tube Mediastinal 270 170 Chest Tube Right 38 94 Urine 725 1105 Other: Voiding Method Indwelling Catheter Indwelling Catheter ABP, PAP, CO, CI - Last Documented Arterial Blood Pressure 83/55 Pulmonary Artery Pressure 34/22 Cardiac Output 10.7 Cardiac Index 5.4 - Constitutional General appearance: Present: cooperative, no acute distress - Respiratory Details: Lungs sounds diminished bilaterally. Respirations even, nonlabored. Remains on 15 L high flow oxygen with oxygen saturation of 97%. Able to achieve 1000 mL on his incentive spirometry. Mediastinal chest tube to -20 cm wall suction, 130 mL serosanguineous drainage overnight, 400 mL in the last 24 hours. Right pleural chest tube to -20 cm wall suction, 80 mL serous drainage overnight, 140 mL the last 24 hours. No air leaks present. Weak cough - Cardiovascular Details: S1, S2 present. Regular rate and rhythm, normal sinus rhythm with first-degree block. A/V epicardial pacemaker wires present, attached to generator, backup rate 50 bpm. Sternum stable. Heart hugger in place with patient demonstrated appropriate use. Right internal jugular Cordis present. No edema present. Teds/SCDs present. - Gastrointestinal Gastrointestinal Comment(s): Abdomen soft, nontender, nondistended. Hypoactive bowel sounds present. Negative flatus, negative BM at this point. Tolerating diet. - Genitourinary Genitourinary Comment(s): Alves present draining clear, yellow urine. Output 30-50 mL/h overnight. - Integumentary Integumentary Comment(s): Anterior chest incision well approximated with Dermabond and covered with dry intact dressing. - Musculoskeletal Musculoskeletal: Present: gait normal, strength equal bilaterally - Psychiatric Psychiatric: Present: A&O x's 3, appropriate affect, intact judgment & insight - Allied health notes Allied health notes reviewed: nursing - Labs CBC & Chem 7: 08/26/16 04:15 08/26/16 04:15 Labs: Abnormal Lab Results - Last 24 Hours (Table) 08/24/16 08/24/16 08/24/16 Range/Units 08:50 10:03 10:48 RBC (4.30-5.90) m/uL Hgb (13.0-17.5) gm/dL Hct (39.0-53.0) % Plt Count (150-450) k/uL ABG pH (7.35-7.45) ABG pCO2 (35-45) mmHg ABG pO2 234 H 330 H (83-108) mmHg ABG HCO3 26 H (21-25) mmol/L ABG Total CO2 25 H 25 H 27 H (19-24) mmol/L ABG O2 Saturation 99.8 H 99.9 H (94-97) % ABG Hematocrit (34.0-46.0) % ABG Sodium (135-146) mmol/L ABG Potassium 4.8 H (3.4-4.5) mmol/L Glucose (74-99) mg/dL POC Glucose (mg/dL) (75-99) mg/dL Calcium (8.4-10.2) mg/dL Alkaline Phosphatase (38-126) U/L Total Protein (6.3-8.2) g/dL Albumin (3.5-5.0) g/dL Arterial Blood Potassium 4.8 H (3.4-4.5) mmol/L 08/24/16 08/24/16 08/24/16 Range/Units 11:23 12:55 13:33 RBC (4.30-5.90) m/uL Hgb (13.0-17.5) gm/dL Hct (39.0-53.0) % Plt Count (150-450) k/uL ABG pH 7.32 L 7.34 L 7.34 L (7.35-7.45) ABG pCO2 53 H 46 H (35-45) mmHg ABG pO2 228 H 253 H 297 H (83-108) mmHg ABG HCO3 26 H (21-25) mmol/L ABG Total CO2 28 H 25 H 25 H (19-24) mmol/L ABG O2 Saturation 99.7 H 99.8 H 99.9 H (94-97) % ABG Hematocrit 31 L (34.0-46.0) % ABG Sodium 147 H (135-146) mmol/L ABG Potassium 5.0 H 4.8 H 5.0 H (3.4-4.5) mmol/L Glucose (74-99) mg/dL POC Glucose (mg/dL) (75-99) mg/dL Calcium (8.4-10.2) mg/dL Alkaline Phosphatase (38-126) U/L Total Protein (6.3-8.2) g/dL Albumin (3.5-5.0) g/dL Arterial Blood Potassium 5.0 H 4.8 H 5.0 H (3.4-4.5) mmol/L 08/24/16 08/25/16 08/25/16 Range/Units 14:14 08:33 09:06 RBC (4.30-5.90) m/uL Hgb (13.0-17.5) gm/dL Hct (39.0-53.0) % Plt Count (150-450) k/uL ABG pH (7.35-7.45) ABG pCO2 (35-45) mmHg ABG pO2 70 L (83-108) mmHg ABG HCO3 (21-25) mmol/L ABG Total CO2 (19-24) mmol/L ABG O2 Saturation 93.7 L (94-97) % ABG Hematocrit (34.0-46.0) % ABG Sodium (135-146) mmol/L ABG Potassium (3.4-4.5) mmol/L Glucose (74-99) mg/dL POC Glucose (mg/dL) 126 H 128 H (75-99) mg/dL Calcium (8.4-10.2) mg/dL Alkaline Phosphatase (38-126) U/L Total Protein (6.3-8.2) g/dL Albumin (3.5-5.0) g/dL Arterial Blood Potassium (3.4-4.5) mmol/L 08/25/16 08/25/16 08/25/16 Range/Units 09:47 11:04 12:19 RBC (4.30-5.90) m/uL Hgb (13.0-17.5) gm/dL Hct (39.0-53.0) % Plt Count (150-450) k/uL ABG pH (7.35-7.45) ABG pCO2 (35-45) mmHg ABG pO2 (83-108) mmHg ABG HCO3 (21-25) mmol/L ABG Total CO2 (19-24) mmol/L ABG O2 Saturation (94-97) % ABG Hematocrit (34.0-46.0) % ABG Sodium (135-146) mmol/L ABG Potassium (3.4-4.5) mmol/L Glucose (74-99) mg/dL POC Glucose (mg/dL) 124 H 114 H 109 H (75-99) mg/dL Calcium (8.4-10.2) mg/dL Alkaline Phosphatase (38-126) U/L Total Protein (6.3-8.2) g/dL Albumin (3.5-5.0) g/dL Arterial Blood Potassium (3.4-4.5) mmol/L 08/25/16 08/25/16 08/25/16 Range/Units 13:26 14:05 14:40 RBC 2.91 L (4.30-5.90) m/uL Hgb 9.2 L D (13.0-17.5) gm/dL Hct 27.6 L (39.0-53.0) % Plt Count 87 L (150-450) k/uL ABG pH (7.35-7.45) ABG pCO2 (35-45) mmHg ABG pO2 (83-108) mmHg ABG HCO3 (21-25) mmol/L ABG Total CO2 (19-24) mmol/L ABG O2 Saturation (94-97) % ABG Hematocrit (34.0-46.0) % ABG Sodium (135-146) mmol/L ABG Potassium (3.4-4.5) mmol/L Glucose (74-99) mg/dL POC Glucose (mg/dL) 122 H 126 H (75-99) mg/dL Calcium (8.4-10.2) mg/dL Alkaline Phosphatase (38-126) U/L Total Protein (6.3-8.2) g/dL Albumin (3.5-5.0) g/dL Arterial Blood Potassium (3.4-4.5) mmol/L 08/25/16 08/25/16 08/25/16 Range/Units 15:23 16:17 17:00 RBC (4.30-5.90) m/uL Hgb (13.0-17.5) gm/dL Hct (39.0-53.0) % Plt Count (150-450) k/uL ABG pH (7.35-7.45) ABG pCO2 (35-45) mmHg ABG pO2 (83-108) mmHg ABG HCO3 (21-25) mmol/L ABG Total CO2 (19-24) mmol/L ABG O2 Saturation (94-97) % ABG Hematocrit (34.0-46.0) % ABG Sodium (135-146) mmol/L ABG Potassium (3.4-4.5) mmol/L Glucose (74-99) mg/dL POC Glucose (mg/dL) 131 H 123 H 105 H (75-99) mg/dL Calcium (8.4-10.2) mg/dL Alkaline Phosphatase (38-126) U/L Total Protein (6.3-8.2) g/dL Albumin (3.5-5.0) g/dL Arterial Blood Potassium (3.4-4.5) mmol/L 08/25/16 08/25/16 08/25/16 Range/Units 18:03 19:02 21:45 RBC (4.30-5.90) m/uL Hgb (13.0-17.5) gm/dL Hct (39.0-53.0) % Plt Count (150-450) k/uL ABG pH (7.35-7.45) ABG pCO2 (35-45) mmHg ABG pO2 (83-108) mmHg ABG HCO3 (21-25) mmol/L ABG Total CO2 (19-24) mmol/L ABG O2 Saturation (94-97) % ABG Hematocrit (34.0-46.0) % ABG Sodium (135-146) mmol/L ABG Potassium (3.4-4.5) mmol/L Glucose (74-99) mg/dL POC Glucose (mg/dL) 129 H 135 H 132 H (75-99) mg/dL Calcium (8.4-10.2) mg/dL Alkaline Phosphatase (38-126) U/L Total Protein (6.3-8.2) g/dL Albumin (3.5-5.0) g/dL Arterial Blood Potassium (3.4-4.5) mmol/L 08/25/16 08/26/16 08/26/16 Range/Units 22:53 00:41 01:35 RBC (4.30-5.90) m/uL Hgb (13.0-17.5) gm/dL Hct (39.0-53.0) % Plt Count (150-450) k/uL ABG pH (7.35-7.45) ABG pCO2 (35-45) mmHg ABG pO2 (83-108) mmHg ABG HCO3 (21-25) mmol/L ABG Total CO2 (19-24) mmol/L ABG O2 Saturation (94-97) % ABG Hematocrit (34.0-46.0) % ABG Sodium (135-146) mmol/L ABG Potassium (3.4-4.5) mmol/L Glucose (74-99) mg/dL POC Glucose (mg/dL) 127 H 112 H 127 H (75-99) mg/dL Calcium (8.4-10.2) mg/dL Alkaline Phosphatase (38-126) U/L Total Protein (6.3-8.2) g/dL Albumin (3.5-5.0) g/dL Arterial Blood Potassium (3.4-4.5) mmol/L 08/26/16 08/26/16 08/26/16 Range/Units 03:05 04:14 04:15 RBC (4.30-5.90) m/uL Hgb (13.0-17.5) gm/dL Hct (39.0-53.0) % Plt Count (150-450) k/uL ABG pH (7.35-7.45) ABG pCO2 (35-45) mmHg ABG pO2 (83-108) mmHg ABG HCO3 (21-25) mmol/L ABG Total CO2 (19-24) mmol/L ABG O2 Saturation (94-97) % ABG Hematocrit (34.0-46.0) % ABG Sodium (135-146) mmol/L ABG Potassium (3.4-4.5) mmol/L Glucose 111 H (74-99) mg/dL POC Glucose (mg/dL) 121 H 110 H (75-99) mg/dL Calcium 8.2 L (8.4-10.2) mg/dL Alkaline Phosphatase 34 L (38-126) U/L Total Protein 5.4 L (6.3-8.2) g/dL Albumin 3.4 L (3.5-5.0) g/dL Arterial Blood Potassium (3.4-4.5) mmol/L 08/26/16 08/26/16 08/26/16 Range/Units 04:15 06:08 06:44 RBC 2.77 L (4.30-5.90) m/uL Hgb 8.8 L (13.0-17.5) gm/dL Hct 26.4 L (39.0-53.0) % Plt Count 86 L (150-450) k/uL ABG pH (7.35-7.45) ABG pCO2 (35-45) mmHg ABG pO2 (83-108) mmHg ABG HCO3 (21-25) mmol/L ABG Total CO2 (19-24) mmol/L ABG O2 Saturation (94-97) % ABG Hematocrit (34.0-46.0) % ABG Sodium (135-146) mmol/L ABG Potassium (3.4-4.5) mmol/L Glucose (74-99) mg/dL POC Glucose (mg/dL) 114 H 107 H (75-99) mg/dL Calcium (8.4-10.2) mg/dL Alkaline Phosphatase (38-126) U/L Total Protein (6.3-8.2) g/dL Albumin (3.5-5.0) g/dL Arterial Blood Potassium (3.4-4.5) mmol/L - Imaging and Cardiology Chest x-ray: report reviewed, image reviewed Assessment and Plan (1) Hyperlipidemia Status: Acute (2) Hypertension Status: Acute (3) Severe mitral regurgitation Status: Acute Plan: 1. Continue aspirin, Lipitor, heparin subcu. 2. Will hold Plavix secondary to decreasing platelet count, 86,000 this morning. 3. Wean oxygen as tolerated. Encourage incentive spirometry use. 4. Will DC Alves catheter. Continue accurate I/O's. 5. Will give lasix 20 mg IVP x 1 dose. 6. GI/DVT prophylaxis. 7. Increase activity. Ambulate in hallway. Physical therapy to follow. 8. Continue chest tubes for 1 more day. 9. Labs, chest x-ray in the morning. 10. More recommendations as patient progresses. Time with Patient: Greater than 30 <Noah Hankins - Last Filed: 08/26/16 19:23> Objective - Vital Signs Vital signs: Vital Signs Temp 97.8 F 08/26/16 16:00 Pulse 105 H 08/26/16 19:00 Resp 16 08/26/16 19:00 BP 84/60 08/26/16 11:00 Pulse Ox 93 L 08/26/16 19:00 Intake & Output 05/1108/26/16 08/27/16 06:59 18:59 06:59 Intake Total 712.392 316 26 Output Total 1369 1015 5 Balance -656.608 -699 21 Intake: IV 707 316 26 LR 650 250 20 Pressure Bag 57 66 6 Intake, IV Titration 5.392 Amount Insulin Regular 100 unit 5.392 In Sodium Chloride 0.9% 100 ml @ Per Protocol IV .Q0M [facility] Rx#:[id number] Output: Chest Tube Drainage 264 165 5 Chest Tube Mediastinal 170 100 0 Chest Tube Right 94 65 5 Urine 1105 850 Other: Voiding Method Indwelling Catheter Urinal ABP, PAP, CO, CI - Last Documented Arterial Blood Pressure 96/60 Pulmonary Artery Pressure 34/22 Cardiac Output 10.7 Cardiac Index 5.4 - Labs CBC & Chem 7: 08/26/16 04:15 08/26/16 04:15 Labs: Abnormal Lab Results - Last 24 Hours (Table) 08/25/16 08/25/16 08/26/16 Range/Units 21:45 22:53 00:41 RBC (4.30-5.90) m/uL Hgb (13.0-17.5) gm/dL Hct (39.0-53.0) % Plt Count (150-450) k/uL Glucose (74-99) mg/dL POC Glucose (mg/dL) 132 H 127 H 112 H (75-99) mg/dL Calcium (8.4-10.2) mg/dL Alkaline Phosphatase (38-126) U/L Total Protein (6.3-8.2) g/dL Albumin (3.5-5.0) g/dL 08/26/16 08/26/16 08/26/16 Range/Units 01:35 03:05 04:14 RBC (4.30-5.90) m/uL Hgb (13.0-17.5) gm/dL Hct (39.0-53.0) % Plt Count (150-450) k/uL Glucose (74-99) mg/dL POC Glucose (mg/dL) 127 H 121 H 110 H (75-99) mg/dL Calcium (8.4-10.2) mg/dL Alkaline Phosphatase (38-126) U/L Total Protein (6.3-8.2) g/dL Albumin (3.5-5.0) g/dL 08/26/16 08/26/16 08/26/16 Range/Units 04:15 04:15 06:08 RBC 2.77 L (4.30-5.90) m/uL Hgb 8.8 L (13.0-17.5) gm/dL Hct 26.4 L (39.0-53.0) % Plt Count 86 L (150-450) k/uL Glucose 111 H (74-99) mg/dL POC Glucose (mg/dL) 114 H (75-99) mg/dL Calcium 8.2 L (8.4-10.2) mg/dL Alkaline Phosphatase 34 L (38-126) U/L Total Protein 5.4 L (6.3-8.2) g/dL Albumin 3.4 L (3.5-5.0) g/dL 08/26/16 08/26/16 08/26/16 Range/Units 06:44 08:48 13:03 RBC (4.30-5.90) m/uL Hgb (13.0-17.5) gm/dL Hct (39.0-53.0) % Plt Count (150-450) k/uL Glucose (74-99) mg/dL POC Glucose (mg/dL) 107 H 110 H 106 H (75-99) mg/dL Calcium (8.4-10.2) mg/dL Alkaline Phosphatase (38-126) U/L Total Protein (6.3-8.2) g/dL Albumin (3.5-5.0) g/dL 08/26/16 Range/Units 17:09 RBC (4.30-5.90) m/uL Hgb (13.0-17.5) gm/dL Hct (39.0-53.0) % Plt Count (150-450) k/uL Glucose (74-99) mg/dL POC Glucose (mg/dL) 117 H (75-99) mg/dL Calcium (8.4-10.2) mg/dL Alkaline Phosphatase (38-126) U/L Total Protein (6.3-8.2) g/dL Albumin (3.5-5.0) g/dL Assessment and Plan Plan: The patient was seen and examined. I agree with the above assessment and plan. He appears to be breathing easier today. He is down to 5 L nasal cannula oxygen. His beta ashly has been on hold secondary to a marginal blood pressure. His chest x-ray appears wet and we will give him a dose of Lasix. We will keep his chest tubes for today. His Alves catheter was removed. Plavix is currently on hold secondary to thrombocytopenia.
--- NOTE | 2016-08-26 11:29 | PN ---
DATE OF SERVICE: 08/26/2016 PRESENTING COMPLAINT: Mitral valve replacement surgery, medical management. INTERVAL HISTORY: This is a 45-year-old male who is postop day 2 from a mitral valve replacement. Today patient is awake, sitting up in the chair, looking more awake and not quite as tired as yesterday. However, patient is relaxed, does complain of midsternal chest pain relative to the surgery. Patient has had several episodes while sitting up of persistent low blood pressure as reported by the nurse and patient states that he does feel a little "woozy" when sitting up in the chair. Blood pressure is fine when patient lies down. Review of systems done for cars constitutional, cardiovascular, GI, pulmonary, with relevant findings as above. CURRENT MEDICATIONS: [place], albumin, Plavix, Lipitor, IV insulin, Protonix, Senokot, heparin. PHYSICAL EXAMINATION: VITAL SIGNS: Temperature 98.2, pulse 93, respiratory rate 20, blood pressure 90/53. Central venous pressure 11, oxygen saturation 94% on 5 L nasal cannula. GENERAL APPEARANCE: Patient sitting in the chair, awake, alert, states he feels "pretty good." Pain is well controlled. EYES: Pupils equal. Conjunctivae are normal. NECK: JVD not raised. Mass not palpable. LUNGS: Diminished breath sounds bilaterally, scattered crackles throughout. Respiratory effort normal, unlabored. CARDIOVASCULAR: S1, S2 normal, trace edema noted to bilateral lower extremities. ABDOMEN: Soft, nontender. Bowel sounds x4. Liver and spleen not palpable. PSYCHIATRIC: Alert and oriented x3. Mood and affect are normal. Midline chest wall incision noted. Surgical dressing remains in place. No shadowing of any drainage noted. Two chest tubes remain in place, one to the right chest wall, one to the mediastinal area. Both draining serosanguineous drainage. INVESTIGATIONS: Chest x-ray dated 08/26/2016. Interval catheter removal, otherwise essentially stable exam, probable lower lobe atelectasis and associated effusion. LABS: White blood cell count 7.7, hemoglobin 8.8, platelet count 86, sodium 137, potassium 4.3, BUN 19, creatinine 0.79. Blood glucose 111, calcium 8.2, total protein 5.4. ASSESSMENT: 1. Status post mitral valve repair. 2. Delusional thrombocytopenia. 3. Acute postoperative blood loss anemia as expected from surgery. PLAN: Patient is still on insulin drip at 1 unit an hour; however, at this moment is being held as patient's blood glucose has been stable, does not require treatment. Will consider switching to a.c. and at bedtime sliding scale. Patient was not formerly prior to surgery a diabetic patient. Continue with current medications and treatment plan. Plan of care was discussed with the patient. Patient was seen and examined by nurse practitioner, Geena Headley and all elements of the case discussed with attending, Dr. Waldron.
--- NOTE | 2016-08-26 12:24 | P.PN ---
Progress Note - Text This is a pleasant 45-year-old gentleman who sees Dr. Murry as an outpatient who was admitted to the hospital yesterday and underwent an elective mitral valve repair for symptomatic severe mitral regurgitation. This is postoperative day #1. The patient seems to be doing well overall. The blood pressure has been marginally low and the beta ashly was held because of that and also because of the heart rhythm yesterday. He is slightly tachycardic with a heart rate around 100 beats per minutes. I will continue the current medical treatment was dual antiplatelet therapy and statin and start him on a small dose of beta ashly once the blood pressure above 90 mmHg systolic.
--- NOTE | 2016-08-26 12:46 | P.PN ---
Subjective Principal diagnosis: Severe mitral regurgitation This is a very pleasant 45-year-old gentleman with a known history of severe mitral regurgitation. He was admitted electively for a mitral valve repair which was performed 08/24/[address] Millard. This is postoperative day #2. Seen in follow-up in the intensive care unit. He is awake and alert in no acute distress. He is sitting up in the chair at the bedside. He denies any worsening shortness of breath, cough or congestion. He is currently pulling approximately 500 MLS on his incentive spirometer. [address] in place. He has a lactated [facility]inger[facility] at [facility]. He's utilizing 5 L/m per nasal cannula to maintain O2 saturations in the 90s. Chest x-ray reveals lower lobe atelectasis. Hemoglobin 8.8. Objective - Vital Signs Vital signs: Vital Signs Temp 98.0 F 08/26/16 12:00 Pulse 96 08/26/16 12:01 Resp 19 08/26/16 12:00 BP 84/60 08/26/16 11:00 Pulse Ox 92 L 08/26/16 12:00 Intake & Output 08/25/16 08/26/16 08/26/16 18:59 06:59 18:59 Intake Total 1244.114 712.392 160 Output Total 1033 1369 550 Balance 211.114 -656.608 -390 Intake: IV 884 707 160 ACETAMINOPHEN IV (For NPO 100 ) 1,000 mg In Empty Bag 1 bag @ 400 mls/hr IVPB Q6HR [facility] Rx#:[id number] LR 600 650 130 Pressure Bag 84 57 30 ceFAZolin 2 gm In Sodium 100 Chloride 0.9% 100 ml @ 100 mls/hr IVPB Q8HR [facility] Rx#:[id number] Intake, IV Titration 110.114 5.392 Amount Calcium Gluconate 1,000 100 mg In Sodium Chloride 0.9 % 100 ml @ 100 mls/hr IVPB ONCE ONE Rx#: [id number] Insulin Regular 100 unit 10.114 5.392 In Sodium Chloride 0.9% 100 ml @ Per Protocol IV .Q0M [facility] Rx#:[id number] Oral 250 Output: Chest Tube Drainage 308 264 100 Chest Tube Mediastinal 270 170 60 Chest Tube Right 38 94 40 Urine 725 1105 450 Other: Voiding Method Indwelling Catheter Indwelling Catheter Urinal ABP, PAP, CO, CI - Last Documented Arterial Blood Pressure 111/65 Pulmonary Artery Pressure 34/22 Cardiac Output 10.7 Cardiac Index 5.4 - Exam GENERAL EXAM: Alert, active, comfortable in no apparent distress. HEAD: Normocephalic. EYES: Normal reaction of pupils, equal size. NOSE: Clear with pink turbinates. THROAT: No erythema or exudates. NECK: No masses, no JVD. CHEST: Sternal dressing is dry and intact. LUNGS: Equal air entry with crackles in the posterior bases more so on the left. Tube remains in place. CVS: S1 and S2 normal with no audible murmurs, regular rhythm. ABDOMEN: No hepatosplenomegaly, normal bowel sounds, no guarding or rigidity. SPINE: No scoliosis or deformity SKIN: No rashes CENTRAL NERVOUS SYSTEM: No focal deficits, tone is normal in all 4 extremities. Extremities: There is trace peripheral edema. No clubbing, no cyanosis. Peripheral pulses are intact. - Labs CBC & Chem 7: 08/26/16 04:15 08/26/16 04:15 Labs: Abnormal Lab Results - Last 24 Hours (Table) 08/25/16 08/25/16 08/25/16 Range/Units 13:26 14:05 14:40 RBC 2.91 L (4.30-5.90) m/uL Hgb 9.2 L D (13.0-17.5) gm/dL Hct 27.6 L (39.0-53.0) % Plt Count 87 L (150-450) k/uL Glucose (74-99) mg/dL POC Glucose (mg/dL) 122 H 126 H (75-99) mg/dL Calcium (8.4-10.2) mg/dL Alkaline Phosphatase (38-126) U/L Total Protein (6.3-8.2) g/dL Albumin (3.5-5.0) g/dL 08/25/16 08/25/16 08/25/16 Range/Units 15:23 16:17 17:00 RBC (4.30-5.90) m/uL Hgb (13.0-17.5) gm/dL Hct (39.0-53.0) % Plt Count (150-450) k/uL Glucose (74-99) mg/dL POC Glucose (mg/dL) 131 H 123 H 105 H (75-99) mg/dL Calcium (8.4-10.2) mg/dL Alkaline Phosphatase (38-126) U/L Total Protein (6.3-8.2) g/dL Albumin (3.5-5.0) g/dL 08/25/16 08/25/16 08/25/16 Range/Units 18:03 19:02 21:45 RBC (4.30-5.90) m/uL Hgb (13.0-17.5) gm/dL Hct (39.0-53.0) % Plt Count (150-450) k/uL Glucose (74-99) mg/dL POC Glucose (mg/dL) 129 H 135 H 132 H (75-99) mg/dL Calcium (8.4-10.2) mg/dL Alkaline Phosphatase (38-126) U/L Total Protein (6.3-8.2) g/dL Albumin (3.5-5.0) g/dL 08/25/16 08/26/16 08/26/16 Range/Units 22:53 00:41 01:35 RBC (4.30-5.90) m/uL Hgb (13.0-17.5) gm/dL Hct (39.0-53.0) % Plt Count (150-450) k/uL Glucose (74-99) mg/dL POC Glucose (mg/dL) 127 H 112 H 127 H (75-99) mg/dL Calcium (8.4-10.2) mg/dL Alkaline Phosphatase (38-126) U/L Total Protein (6.3-8.2) g/dL Albumin (3.5-5.0) g/dL 08/26/16 08/26/16 08/26/16 Range/Units 03:05 04:14 04:15 RBC (4.30-5.90) m/uL Hgb (13.0-17.5) gm/dL Hct (39.0-53.0) % Plt Count (150-450) k/uL Glucose 111 H (74-99) mg/dL POC Glucose (mg/dL) 121 H 110 H (75-99) mg/dL Calcium 8.2 L (8.4-10.2) mg/dL Alkaline Phosphatase 34 L (38-126) U/L Total Protein 5.4 L (6.3-8.2) g/dL Albumin 3.4 L (3.5-5.0) g/dL 08/26/16 08/26/16 08/26/16 Range/Units 04:15 06:08 06:44 RBC 2.77 L (4.30-5.90) m/uL Hgb 8.8 L (13.0-17.5) gm/dL Hct 26.4 L (39.0-53.0) % Plt Count 86 L (150-450) k/uL Glucose (74-99) mg/dL POC Glucose (mg/dL) 114 H 107 H (75-99) mg/dL Calcium (8.4-10.2) mg/dL Alkaline Phosphatase (38-126) U/L Total Protein (6.3-8.2) g/dL Albumin (3.5-5.0) g/dL 08/26/16 Range/Units 08:48 RBC (4.30-5.90) m/uL Hgb (13.0-17.5) gm/dL Hct (39.0-53.0) % Plt Count (150-450) k/uL Glucose (74-99) mg/dL POC Glucose (mg/dL) 110 H (75-99) mg/dL Calcium (8.4-10.2) mg/dL Alkaline Phosphatase (38-126) U/L Total Protein (6.3-8.2) g/dL Albumin (3.5-5.0) g/dL Assessment and Plan Plan: Impression: #1 Severe mitral regurgitation, status post mitral valve repair. Postoperative day #2. #2 Hypertension. #3 Hyperlipidemia. Plan: The patient was seen and evaluated by Dr. Senior. His chest x-ray and labs were reviewed. We'll continue the patient's current medications. He is again educated regarding the importance of the increased use and do incentive spirometer and cough and deep breathing exercises. We'll increase his activity as tolerated. We'll continue to follow.
[2016-08-26 13:05] LABS: Glucose,Whole Blood 106 mg/dL (75-99)
[2016-08-26] MEDS: INSULIN LISPRO (humaLOG) 300 UNIT/3 ML VIAL SQ SCH ×3 (14:14→21:18)
[2016-08-26] MEDS: CLOPIDOGREL 75 MG TAB PO SCH (17:10)
[2016-08-26 17:11] LABS: Glucose,Whole Blood 117 mg/dL (75-99)
--- NOTE | 2016-08-26 20:16 | PN ---
DATE OF SERVICE: 08/26/2016 ATTENDING NOTE: This patient was seen and examined by me today. I reviewed the note of my nurse practitioner, Ms. Headley. Any additional changes are below. Patient is status post mitral valve replacement. Does get a bit dizzy, lightheaded. at the bedside. Did tolerate some diet. On exam, lungs have decreased breath sounds. CARDIOVASCULAR: First and second sounds normal. PSYCH: Alert oriented x3. INVESTIGATIONS: Hemoglobin is 8.8. BUN and creatinine are normal. Accu-Cheks are noted. Albumin 3.4. Chest x-ray shows some atelectasis. Blood pressure noted to be running in the 80s. ASSESSMENT: 1. Status post mitral valve repair. 2. Dilutional thrombocytopenia. 3. Acute blood loss anemia, expected from surgery. 4. Hypotension, symptomatic, from blood loss anemia. 5. Hyperglycemia, on a small dose of insulin. 6. Atelectasis. PLAN: Patient to continue to get IV fluids. Encouraged to be out of bed. Keep a close eye. Care was discussed with patient and at the bedside.
[2016-08-26] MEDS: SENNOSIDES-DOCUSATE SODIUM 1 EACH TAB PO SCH (21:14)
[2016-08-26 21:19] LABS: Glucose,Whole Blood 111 mg/dL (75-99)
[2016-08-27] MEDS: KETOROLAC 30 MG/ML 1 ML VIAL IVP PRN ×3 (00:12→18:48)
[2016-08-27] MEDS: HEPARIN SODIUM,PORCINE 5,000 UNIT/ML 1 ML VIAL SQ SCH ×4 (00:12→22:56)
[2016-08-27 04:44] LABS: Basophils % (A) 0 %; CH 31.8; CHCM 33.9; Eosinophils # (A) 0.1 k/uL (0-0.7); Eosinophils % (A) 1 %; HCT 25.2 % (39.0-53.0); HDW 2.31; HGB 8.4 gm/dL (13.0-17.5); Luc # (Auto) 0.16; Luc % (Auto) 2; Lymphocytes # (A) 1.7 k/uL (1.0-4.8); Lymphocytes % (A) 22 %; MCH 31.6 pg (25.0-35.0); MCHC 33.5 g/dL (31.0-37.0); MCV 94.3 fL (80.0-100.0); Monocytes # (A) 0.6 k/uL (0-1.0); Monocytes % (A) 8 %; Neutrophils # (A) 5.4 k/uL (1.3-7.7); Neutrophils % (A) 68 %; RBC 2.67 m/uL (4.30-5.90); RDW 12.8 % (11.5-15.5); WBC (Perox) 7.88
[2016-08-27 04:48] LABS: Ionized Calcium 4.9 mg/dL (4.5-5.3)
[2016-08-27 04:49] LABS: INR 1.1 (<1.1); Prothrombin Time 10.9 sec (9.0-12.0)
[2016-08-27 04:55] LABS: ALT 25 U/L (21-72); AST 32 U/L (17-59); Alkaline Phosphatase 43 U/L (38-126); Anion Gap 7 mmol/L; Blood Urea Nitrogen 22 mg/dL (9-20); Calcium 8.3 mg/dL (8.4-10.2); Carbon Dioxide 27 mmol/L (22-30); Chloride 104 mmol/L (98-107); Glucose 96 mg/dL (74-99); Non-African American GFR(MDRD) >60 (>60 ml/min/1.73 sqM); Potassium 4.3 mmol/L (3.5-5.1); Sodium 138 mmol/L (137-145); Total Bilirubin 0.9 mg/dL (0.2-1.3); Total Protein 5.2 g/dL (6.3-8.2)
[2016-08-27] MEDS: HYDROcodone/APAP 5-325MG 1 EACH TAB PO PRN (05:29)
[2016-08-27 07:28] LABS: Glucose,Whole Blood 109 mg/dL (75-99)
--- NOTE | 2016-08-27 07:31 | XR ---
EXAMINATION TYPE: XR chest 1V portable DATE OF EXAM: 08/27/2016 7:00 AM COMPARISON: 08/26/2016 HISTORY: Chest pain TECHNIQUE: Single frontal view of the chest is obtained. FINDINGS: Right basilar chest tube is unchanged in position. Sizable pneumothorax is not identified. Left lower lobe consolidation is noted. Mild strandy density right lung base. Sternotomy evaluated mediastinal wires are in place. Continued cardiomegaly. IMPRESSION: 1. Stable chest.
[2016-08-27] MEDS: CLOPIDOGREL 75 MG TAB PO SCH (08:49)
[2016-08-27] MEDS: MUPIROCIN 2% OINT 22 GM TUBE NASAL SCH ×2 (08:49→22:56)
[2016-08-27] MEDS: PANTOPRAZOLE 40 MG TABLET PO SCH (08:50)
[2016-08-27] MEDS: ATORVASTATIN 40 MG TAB PO SCH (08:50)
[2016-08-27] MEDS: INSULIN LISPRO (humaLOG) 300 UNIT/3 ML VIAL SQ SCH ×3 (08:50→22:48)
[2016-08-27] MEDS: ASPIRIN 325 MG TAB PO SCH (08:50)
[2016-08-27] MEDS: IPRATROPIUM-ALBUTEROL 3 ML NEB INHALATION SCH ×4 (09:32→20:48)
[2016-08-27] MEDS ORDERED: FUROSEMIDE 10 MG/ML 2 ML VIAL IV ONE (10:27)
--- NOTE | 2016-08-27 10:28 | P.PN ---
Subjective Principal diagnosis: Severe mitral regurgitation This is a very pleasant 45-year-old gentleman with a known history of severe mitral regurgitation. He was admitted electively for a mitral valve repair which was performed 08/24/[address] Roy. This is postoperative day #2. Seen in follow-up in the intensive care unit. He is awake and alert in no acute distress. He is sitting up in the chair at the bedside. He denies any worsening shortness of breath, cough or congestion. He is currently pulling approximately 500 MLS on his incentive spirometer. [address] in place. He has a lactated Ringer's at O. He's utilizing 5 L/m per nasal cannula to maintain O2 saturations in the 90s. Chest x-ray reveals lower lobe atelectasis. Hemoglobin 8.8. She is seen again today 08/27/2016 in follow-up in the intensive care unit. He is currently sitting up in the chair at the bedside. He is doing better today as compared to yesterday. He is still pulling about 1 L on the incentive spirometer. He is performing coughing and deep breathing exercises. His chest x-ray is stable. A hemoglobin remains stable at 8.4. He's been up ambulating with assistance. Objective - Vital Signs Vital signs: Vital Signs Temp 98.0 F 08/27/16 08:00 Pulse 96 08/27/16 09:46 Resp 17 08/27/16 09:00 BP 106/48 08/27/16 07:00 Pulse Ox 94 L 08/27/16 09:00 Intake & Output 08/26/16 08/27/16 08/27/16 18:59 06:59 18:59 Intake Total 316 312 78 Output Total 1015 755 20 Balance -699 -443 58 Intake: IV 316 312 78 LR 250 240 60 Pressure Bag 66 72 18 Output: Chest Tube Drainage 165 155 20 Chest Tube Mediastinal 100 70 0 Chest Tube Right 65 85 20 Urine 850 600 Other: Voiding Method Urinal Urinal ABP, PAP, CO, CI - Last Documented Arterial Blood Pressure 106/55 Pulmonary Artery Pressure 34/22 Cardiac Output 10.7 Cardiac Index 5.4 - Exam GENERAL EXAM: Alert, active, comfortable in no apparent distress. HEAD: Normocephalic. EYES: Normal reaction of pupils, equal size. NOSE: Clear with pink turbinates. THROAT: No erythema or exudates. NECK: No masses, no JVD. CHEST: Sternal dressing is dry and intact. LUNGS: Equal air entry with crackles in the posterior bases more so on the left. Tube remains in place. CVS: S1 and S2 normal with no audible murmurs, regular rhythm. ABDOMEN: No hepatosplenomegaly, normal bowel sounds, no guarding or rigidity. SPINE: No scoliosis or deformity SKIN: No rashes CENTRAL NERVOUS SYSTEM: No focal deficits, tone is normal in all 4 extremities. Extremities: There is trace peripheral edema. No clubbing, no cyanosis. Peripheral pulses are intact. - Labs CBC & Chem 7: 08/27/16 04:35 08/27/16 04:35 Labs: Abnormal Lab Results - Last 24 Hours (Table) 08/26/16 08/26/16 08/26/16 Range/Units 13:03 17:09 21:17 RBC (4.30-5.90) m/uL Hgb (13.0-17.5) gm/dL Hct (39.0-53.0) % Plt Count (150-450) k/uL BUN (9-20) mg/dL POC Glucose (mg/dL) 106 H 117 H 111 H (75-99) mg/dL Calcium (8.4-10.2) mg/dL Total Protein (6.3-8.2) g/dL Albumin (3.5-5.0) g/dL 08/27/16 08/27/16 08/27/16 Range/Units 04:35 04:35 07:25 RBC 2.67 L (4.30-5.90) m/uL Hgb 8.4 L (13.0-17.5) gm/dL Hct 25.2 L (39.0-53.0) % Plt Count 105 L (150-450) k/uL BUN 22 H (9-20) mg/dL POC Glucose (mg/dL) 109 H (75-99) mg/dL Calcium 8.3 L (8.4-10.2) mg/dL Total Protein 5.2 L (6.3-8.2) g/dL Albumin 3.1 L (3.5-5.0) g/dL Assessment and Plan Plan: Impression: #1 Severe mitral regurgitation, status post mitral valve repair. Postoperative day #3. #2 Hypertension. #3 Hyperlipidemia. Plan: The patient was seen and evaluated by Dr. Senior. His chest x-ray and labs were reviewed. We'll continue the patient's current medications. He is again educated regarding the importance of the increased use and do incentive spirometer and cough and deep breathing exercises. We'll increase his activity as tolerated. We'll continue to follow.
--- NOTE | 2016-08-27 10:43 | P.PN ---
Addendum entered and electronically signed by Rogelio Owens RNFA 08/27/16 14: 14: Right pleural and mediastinal chest tube removed without incident, sutures secured in place. 4 x 4 dressing to cover and secured with tape. Epicardial pacemaker wires were grounded. Original Note: <Rogelio Owens - Last Filed: 08/27/16 10:29> Progress Note - Text CV Surgery Nursing Principal diagnosis: Severe mitral valve regurgitation from a flail P2 segment. Hypertension. Hyperlipidemia. Mild left ventricular dysfunction. POD #3 complex mitral valve repair with triangular resection of P2 and posterior annuloplasty using a 36 mm AnnuloFlex band. Exclusion of the left atrial appendage using a 50 mm atrial clip. Intraoperative transesophageal echocardiogram and epi-aortic scanning. Patient awake and alert, no distress noted, no specific complaints. Vital Signs: Afebrile Vital Signs - 24 hr 08/26/16 08/26/16 08/26/16 11:00 11:49 12:00 Temperature 98.0 F Pulse Rate 102 H 95 103 H Respiratory 20 19 Rate Blood Pressure 84/60 O2 Sat by Pulse 91 L 92 L Oximetry 08/26/16 08/26/16 08/26/16 12:01 13:00 14:00 Temperature Pulse Rate 96 103 H 102 H Respiratory 19 19 Rate Blood Pressure O2 Sat by Pulse 95 95 Oximetry 08/26/16 08/26/16 08/26/16 15:00 15:40 15:56 Temperature Pulse Rate 102 H 95 96 Respiratory 17 Rate Blood Pressure O2 Sat by Pulse 93 L Oximetry 08/26/16 08/26/16 08/26/16 16:00 17:00 18:00 Temperature 97.8 F Pulse Rate 107 H 105 H 103 H Respiratory 20 19 12 Rate Blood Pressure O2 Sat by Pulse 92 L 97 96 Oximetry 08/26/16 08/26/16 08/26/16 19:00 19:30 19:49 Temperature Pulse Rate 105 H 103 H 100 Respiratory 16 20 Rate Blood Pressure O2 Sat by Pulse 93 L 95 Oximetry 08/26/16 08/26/16 08/26/16 20:00 20:06 20:30 Temperature Pulse Rate 103 H 100 108 H Respiratory 22 16 Rate Blood Pressure O2 Sat by Pulse 97 96 Oximetry 08/26/16 08/26/16 08/26/16 21:00 21:30 22:00 Temperature Pulse Rate 109 H 107 H 106 H Respiratory 24 15 16 Rate Blood Pressure O2 Sat by Pulse 92 L 94 L 95 Oximetry 08/26/16 08/26/16 08/26/16 22:30 23:00 23:30 Temperature Pulse Rate 103 H 101 H 100 Respiratory 20 19 28 H Rate Blood Pressure 113/64 O2 Sat by Pulse 95 96 95 Oximetry 08/27/16 08/27/16 08/27/16 00:00 00:30 01:00 Temperature 98.4 F Pulse Rate 98 98 97 Respiratory 24 14 10 L Rate Blood Pressure O2 Sat by Pulse 97 95 94 L Oximetry 08/27/16 08/27/16 08/27/16 01:30 02:00 02:30 Temperature Pulse Rate 96 93 94 Respiratory 19 13 11 L Rate Blood Pressure 98/58 O2 Sat by Pulse 97 96 95 Oximetry 08/27/16 08/27/16 08/27/16 03:00 03:30 04:00 Temperature Pulse Rate 95 92 93 Respiratory 12 12 13 Rate Blood Pressure 98/58 98/58 O2 Sat by Pulse 96 95 95 Oximetry 08/27/16 08/27/16 08/27/16 04:30 05:00 05:30 Temperature 98.8 F Pulse Rate 95 99 99 Respiratory 18 22 20 Rate Blood Pressure O2 Sat by Pulse 96 90 L 94 L Oximetry 08/27/16 08/27/16 08/27/16 06:00 06:30 07:00 Temperature Pulse Rate 97 99 93 Respiratory 23 34 H 22 Rate Blood Pressure 106/48 106/48 O2 Sat by Pulse 93 L 96 92 L Oximetry 08/27/16 08/27/16 08/27/16 08:00 09:00 09:32 Temperature 98.0 F Pulse Rate 90 99 96 Respiratory 18 17 Rate Blood Pressure O2 Sat by Pulse 94 L 94 L Oximetry 08/27/16 09:46 Temperature Pulse Rate 96 Respiratory Rate Blood Pressure O2 Sat by Pulse Oximetry ABP, PAP, CO, CI - Last 8 Hours Arterial Blood Pressure 106/55 Arterial Blood Pressure 94/51 Arterial Blood Pressure 82/49 Arterial Blood Pressure 107/66 Arterial Blood Pressure 94/54 Arterial Blood Pressure 111/63 Arterial Blood Pressure 89/53 Arterial Blood Pressure 105/58 Arterial Blood Pressure 112/63 Arterial Blood Pressure 104/57 Arterial Blood Pressure 105/64 Labs: Short CBC 08/27/16 Range/Units 04:35 WBC 8.0 (3.8-10.6) k/uL Hgb 8.4 L (13.0-17.5) gm/dL Hct 25.2 L (39.0-53.0) % Plt Count 105 L (150-450) k/uL Neutrophils # 5.4 (1.3-7.7) k/uL BMP 08/27/16 04:35 Sodium 138 Potassium 4.3 Chloride 104 Carbon Dioxide 27 BUN 22 H Creatinine 0.81 Glucose 96 Calcium 8.3 L Liver Function 08/27/16 Range/Units 04:35 Total Bilirubin 0.9 (0.2-1.3) mg/dL AST 32 (17-59) U/L ALT 25 (21-72) U/L Alkaline Phosphatase 43 (38-126) U/L Albumin 3.1 L (3.5-5.0) g/dL ABG ABG pH 7.34 (7.35-7.45) L 08/24/16 19:28 ABG pCO2 42 mmHg (35-45) 08/24/16 19:28 ABG pO2 63 mmHg (83-108) L 08/24/16 19:28 ABG O2 Saturation 93.0 % (94-97) L 08/24/16 19:28 PT/INR, D-dimer PT 10.9 sec (9.0-12.0) 08/27/16 04:35 INR 1.1 (<1.1) 08/27/16 04:35 Preoperative nasal swab was positive for [id number] staph aureus. IV Fluids: Lactated Ringer's at 20 mL per hour. CVP: 3 Lungs: Essentially clear throughout, diminished bilateral bases. Respirations are symmetrical and unlabored. O2 sat: 92-93% on 6 L nasal cannula. I/S: 1000 mL, reviewed with the patient important of using his incentive spirometry every hour while awake. The patient demonstrated good use of his incentive spirometry. Heart: S1S2, Regular rhythm and rate, negative for S3, gallop or murmur. Bedside telemetry showing normal sinus rhythm with first-degree heart block heart rate 93. Sternum stable, chest incision clean with dressing clean and dry. Heart hugger in place, the patient is demonstrating proper use of his heart hugger. Reminded the patient the importance of using his heart hugger. Knee-high LISA hose and sequential compression devices in place to bilateral lower extremities. Abdomen: Soft, Positive bowel sounds present in all 4 quadrants. CBGs: 106-117 mg/dL in the last 24 hours. U/O: Adequate, 600 mL output in the last 8 hours. Chest Tubes: Mediastinal chest tubes without air leak, draining thin serosanguineous drainage. 40 mL output in the last 8 hours, 150 mL output in the last 24 hours. Right pleural chest tube without air leak, draining thin serosanguineous drainage. 60 mL output in the last 8 hours, 170 mL output in the last 24 hours. The chest tubes remained to continuous wall suction. 24 hr Total: Intake & Output 08/25/16 08/26/16 08/27/16 08/28/16 06:59 06:59 06:59 06:59 Intake Total 2671.195 1956.506 628 78 Output Total 5930 2402 1770 20 Balance -3258.805 -445.494 -1142 58 Weight 88.1 kg Active Medications Hydrocodone Bitart/Acetaminophen ([place] 5-325) 2 each PO Q4HR PRN PRN Reason: Severe Pain Last Admin: 08/27/16 05:29 Dose: 2 each Hydrocodone Bitart/Acetaminophen ([place] 5-325) 1 each PO Q4HR PRN PRN Reason: Moderate Pain Last Admin: 08/26/16 12:05 Dose: 1 each Albuterol/Ipratropium (Duoneb 0.5 Mg-3 Mg/3 Ml Soln) 3 ml INHALATION RT-Q2H PRN PRN Reason: Shortness Of Breath Or Wheezing Last Admin: 08/25/16 03:24 Dose: 3 ml Albuterol/Ipratropium (Duoneb 0.5 Mg-3 Mg/3 Ml Soln) 3 ml INHALATION RT-QID DORINDA Last Admin: 08/27/16 09:32 Dose: 3 ml Aspirin (Aspirin) 325 mg PO DAILY [facility] Last Admin: 08/27/16 08:50 Dose: 325 mg Atorvastatin Calcium (Lipitor) 40 mg PO DAILY [facility] Last Admin: 08/27/16 08:50 Dose: 40 mg Benzocaine/Menthol (Cepacol Lozenge) 1 each MUCOUS MEM Q2H PRN PRN Reason: Sore Throat Bisacodyl (Dulcolax) 10 mg RECTAL DAILY PRN PRN Reason: Constipation Clopidogrel Bisulfate (Plavix) 75 mg PO DAILY [facility] Last Admin: 08/27/16 08:49 Dose: 75 mg Heparin Sodium (Porcine) (Heparin) 5,000 unit SQ Q8HR [facility] Last Admin: 08/27/16 08:50 Dose: 5,000 unit Lactated Ringer's (Lactated Ringers) 1,000 mls @ 20 mls/hr IV .Q24H [facility] Last Admin: 08/25/16 21:08 Dose: Not Given Insulin Human Lispro (Humalog) 0 unit SQ ACHS [facility] PRN Reason: Protocol Last Admin: 08/27/16 08:50 Dose: Not Given Ketorolac Tromethamine (Toradol) 15 mg IVP Q6H PRN PRN Reason: Moderate Pain Stop: 08/28/16 07:36 Last Admin: 08/27/16 00:12 Dose: 15 mg Magnesium Hydroxide (Milk Of Magnesia) 2,400 mg PO BID PRN PRN Reason: Constipation Metoclopramide HCl (Reglan) 10 mg IVP Q4H PRN PRN Reason: Nausea And Vomiting Metoprolol Tartrate (Lopressor) 12.5 mg PO BID [facility] Miscellaneous Information (Magnesium Per Protocol) 1 each MISCELLANE DAILY PRN ; Protocol PRN Reason: Per Protocol Miscellaneous Information (Phosphorus Per Protocol) 1 each MISCELLANE DAILY PRN ; Protocol PRN Reason: Per Protocol Miscellaneous Information (Potassium Per Protocol) 1 each MISCELLANE DAILY PRN ; Protocol PRN Reason: Per Protocol Mupirocin (Bactroban Oint) 1 applic NASAL BID [facility] Stop: 08/27/16 21:01 Last Admin: 08/27/16 08:49 Dose: 1 applic Ondansetron HCl (Zofran) 4 mg IVP Q6HR PRN PRN Reason: Nausea And Vomiting Pantoprazole Sodium (Protonix) 40 mg PO AC-BRKFST [facility] Last Admin: 08/27/16 08:50 Dose: 40 mg Senna/Docusate Sodium (Senokot-S) 2 each PO HS [facility] Last Admin: 08/26/16 21:14 Dose: 2 each Sodium Chloride (Saline Flush) 10 ml IV BID [facility] Last Admin: 08/26/16 21:14 Dose: 10 ml Plan: 1. Continue aspirin, Lipitor, heparin subcu., Plavix. 2. We will start the patient on metoprolol 12.5 mg by mouth twice a day and hold for heart rate less than 50 and systolic blood pressure less than or equal to 95 mmHg. 3. Wean oxygen as tolerated. Encourage incentive spirometry use. 4. Will remove his chest tubes. 5. Will give lasix 20 mg IVP x 1 dose, if his blood pressure maintains after giving the metoprolol 12.5 mg by mouth. 6. GI/DVT prophylaxis. 7. Increase activity. Ambulate in hallway. Physical therapy to follow. 8. The patient will be transferred to [address] [place] [address]. 9. Labs, chest x-ray in the morning. 10. More recommendations as patient progresses. <Noah Hankins - Last Filed: 08/27/16 15:22> Progress Note - Text The patient was seen and examined. I agree with the above assessment and plan. He is currently on 6 L nasal cannula oxygen. His chest x-ray does appear improved compared to yesterday. We will start a low dose beta ashly. His chest tubes and Cordis will be removed. He will be transferred to [facility] care this afternoon.
--- NOTE | 2016-08-27 10:50 | P.PN ---
Subjective Principal diagnosis: Status post mitral valve repair This is a pleasant 45-year-old gentleman who sees Dr. Murry as an outpatient who was admitted to the hospital yesterday and underwent an elective mitral valve repair for symptomatic severe mitral regurgitation. This is postoperative day #3. Clinically the patient seems to be doing slightly better compared to yesterday. Hemodynamically the blood pressure is a slightly better and also the heart rate is better as well. He was hypotensive and tachycardic yesterday. We are still holding the beta ashly in view of the marginal blood pressure and also in view of the first degree AV block. He continues to be on dual antiplatelet therapy as well as on a statin. Objective - Vital Signs Vital signs: Vital Signs Temp 98.0 F 08/27/16 08:00 Pulse 96 08/27/16 09:46 Resp 17 08/27/16 09:00 BP 106/48 08/27/16 07:00 Pulse Ox 94 L 08/27/16 09:00 Intake & Output 08/26/16 08/27/16 08/27/16 18:59 06:59 18:59 Intake Total 316 312 78 Output Total 1015 755 20 Balance -699 -443 58 Intake: IV 316 312 78 LR 250 240 60 Pressure Bag 66 72 18 Output: Chest Tube Drainage 165 155 20 Chest Tube Mediastinal 100 70 0 Chest Tube Right 65 85 20 Urine 850 600 Other: Voiding Method Urinal Urinal ABP, PAP, CO, CI - Last Documented Arterial Blood Pressure 106/55 Pulmonary Artery Pressure 34/22 Cardiac Output 10.7 Cardiac Index 5.4 - Constitutional General appearance: Present: no acute distress - Respiratory Respiratory: bilateral: diminished - Cardiovascular Rhythm: regular - Labs CBC & Chem 7: 08/27/16 04:35 08/27/16 04:35 Labs: Abnormal Lab Results - Last 24 Hours (Table) 08/26/16 08/26/16 08/26/16 Range/Units 13:03 17:09 21:17 RBC (4.30-5.90) m/uL Hgb (13.0-17.5) gm/dL Hct (39.0-53.0) % Plt Count (150-450) k/uL BUN (9-20) mg/dL POC Glucose (mg/dL) 106 H 117 H 111 H (75-99) mg/dL Calcium (8.4-10.2) mg/dL Total Protein (6.3-8.2) g/dL Albumin (3.5-5.0) g/dL 08/27/16 08/27/16 08/27/16 Range/Units 04:35 04:35 07:25 RBC 2.67 L (4.30-5.90) m/uL Hgb 8.4 L (13.0-17.5) gm/dL Hct 25.2 L (39.0-53.0) % Plt Count 105 L (150-450) k/uL BUN 22 H (9-20) mg/dL POC Glucose (mg/dL) 109 H (75-99) mg/dL Calcium 8.3 L (8.4-10.2) mg/dL Total Protein 5.2 L (6.3-8.2) g/dL Albumin 3.1 L (3.5-5.0) g/dL Assessment and Plan Plan: Assessment #1 status post mitral valve repair #2 mild nonobstructive CAD Plan #1 Continue holding the metoprolol #2 continue the dual antiplatelet therapy and statin #3 follow-up with the patient
[2016-08-27 11:57] LABS: Glucose,Whole Blood 109 mg/dL (75-99)
[2016-08-27] MEDS: METOPROLOL TARTRATE 12.5 MG TAB PO SCH ×2 (11:57→22:55)
--- NOTE | 2016-08-27 12:46 | PN ---
DATE OF SERVICE: 08/27/2016 PRESENTING COMPLAINT: Mitral valve replacement surgery, medical management. INTERVAL HISTORY: This is a 45-year-old male who is postop day 3 from mitral valve replacement. Patient today is awake, sitting up in the chair, just finished his breakfast. Patient does not have any complaints of feeling lightheaded or dizzy today. at the bedside. Review of systems done for constitutional, cardiovascular, GI, and pulmonary with relevant findings as above. CURRENT MEDICATIONS: [place], albumin, Plavix, Lipitor, Protonix, Senokot, heparin. PHYSICAL EXAM: VITAL SIGNS: Temperature 98.8, pulse 95, respirations 18, blood pressure 106/48, oxygen saturation 93% on 5 L. GENERAL APPEARANCE: Patient is sitting up in chair, just completed eating his breakfast. at the bedside. No acute distress. Patient smiling and making jokes. EYES: Pupils equal. Conjunctivae normal. NECK: JVD not raised. Mass not palpable. LUNGS: Diminished breath sounds bilaterally. Some scattered crackles throughout. Respiratory effort normal, unlabored. CARDIOVASCULAR: S1, S2 normal. Trace edema to bilateral lower extremities. ABDOMEN: Soft, nontender. Positive bowel sounds x4. Liver and spleen not palpable. PSYCHIATRIC: Alert and oriented x3. Mood and affect are normal. CHEST WALL: Midline chest wall incision noted. Surgical dressing remains in place. No shattering of any drainage noted. Two chest tubes remain in place. One to the right chest wall, one to the mediastinal area. Both draining serosanguineous drainage. INVESTIGATIONS: White blood cell count 8.0, hemoglobin 8.4, platelet count 105. Sodium 138, potassium 4.3. Blood glucose 109. Calcium 8.3. Albumin 3.1. Chest x-ray shows placement of the right chest tube unchanged in position. No pneumothorax identified. Left lower lobe consolidation noted. Otherwise, stable chest. ASSESSMENT: 1. Status post mitral valve repair. 2. Dilutional thrombocytopenia. 3. Acute blood loss anemia, expected from surgery. 4. Hypotension, symptomatic, from blood loss anemia. 5. Hyperglycemia, on a small dose of insulin. 6. Atelectasis. PLAN: Patient continues to receive IV fluids. Cardiothoracic Surgery is planning on removing chest tubes today, which in turn will help the patient be a bit more mobile. Continue diligence on patient's progression. Plan of care was discussed with the patient and his at the bedside. Patient was seen and examined by nurse practitioner, Geena Headley, and all elements of the case was discussed with attending, Dr. Waldron.
--- NOTE | 2016-08-27 15:31 | CDI ---
In responding to this query, please exercise your independent professional judgment. The [facility] Coding Staff and Clinical Documentation Specialists appreciate your assistance in clarifying documentation, maintaining compliance with coding guidelines, accurately documenting patients condition and capturing severity of illness. The fact that a question is asked does not imply that any particular answer is desired or expected. Communication forms are a method of clarifying documentation and are not made part of the Legal Health Record. Thank you in advance for your clarification. Last Revision, May 2016 Karen Dorsey [address] [facility] [place] [address] Documentation Clarification Form Date: 08/27/2016 3:22:00 PM From: Jenny Gastelum Admit Date: 08/24/2016 5:52:00 AM Patient Name: Benjamin Bolton Visit Number: [id number] Dr. Bola Senior 'Atelectasis' is documented in the progress note on 08/27/2016. Patients Admitting Diagnosis: Severe Mitral Regurgitation Post-Operative Diagnosis: Same Procedure performed: Mitral Valve Replacement History/Risk Factors: Hypertension Hyperlipidemia Clinical Indicators: Chest xray on 08/26/2016 shows 'probable lower lobe atelectasis' Treatment: Daily chest xrays High flow O2 Incentive Spirometer Coughing and Deep Breathing Exercises In order to accurately reflect this patients severity of illness, please clarify if the post-operative diagnosis of 'Atelectasis' is: An expected post-procedural or post-surgical condition An unexpected post-procedural or post-surgical condition, related to surgical care Other, please specify Unable to determine Please document in your progress notes and discharge summary in order to capture severity of illness and risk of mortality. Include clinical findings that support your diagnosis. FYI: Press F11 to launch patient chart Place X here if this finding has no clinical significance, is not applicable or if you are not able to provide any additional documentation. DEISY
--- NOTE | 2016-08-27 15:40 | CDI ---
In responding to this query, please exercise your independent professional judgment. The [facility] Coding Staff and Clinical Documentation Specialists appreciate your assistance in clarifying documentation, maintaining compliance with coding guidelines, accurately documenting patients condition and capturing severity of illness. The fact that a question is asked does not imply that any particular answer is desired or expected. Communication forms are a method of clarifying documentation and are not made part of the Legal Health Record. Thank you in advance for your clarification. Last Revision, June 2015 Karen Dorsey [address] [facility] [place] [address] Documentation Clarification Form Date: 08/27/2016 3:32:00 PM From: Jenny Gastelum Admit Date: 08/24/2016 5:52:00 AM Patient Name: Benjamin Bolton Visit Number: [id number] Dr. Bola Senior History/Risk Factors: Mitral Valve Stenosis post Replacement on 08/24/2016 Atelectasis Hypertension Hyperlipidemia Clinical Indicators: Patient remains on high flow O2 on 08/27/2016 Treatment: Breathing tx Incentive Spirometer Coughing and Deep Breathing Exercises O2 8L nasal cannula In your professional opinion, can you please clarify if these findings signify one of the following conditions and whether this was an expected or unexpected postop condition? Acute Respiratory failure with hypercapnia Acute Respiratory failure with hypoxia Acute Respiratory Distress Acute Respiratory Insufficiency Other Diagnosis, please specify Unable to determine Please document in your progress notes and discharge summary in order to capture severity of illness and risk of mortality. Include clinical findings that support your diagnosis. FYI: Press F11 to launch patient chart. Place X here if this finding has no clinical significance, is not applicable or if you are not able to provide any additional documentation. MALIAD
[2016-08-27 16:58] LABS: Glucose,Whole Blood 91 mg/dL (75-99)
[2016-08-27 18:05] VITALS: RESP 19
[2016-08-27 20:44] LABS: Glucose,Whole Blood 133 mg/dL (75-99)
--- NOTE | 2016-08-27 21:36 | PN ---
DATE OF SERVICE: 08/27/2016 ATTENDING NOTE: This patient was seen and examined by me. I reviewed the note of my nurse practitioner, Ms. Headley, and also discussed it with her. I agree with the same. Patient is doing well; sitting up. Did tolerate his breakfast, eating about 50%. Requiring some oxygen. Tired. On examination, lungs have decreased breath sounds. CARDIOVASCULAR: First and second sounds normal. Awake. Answering questions. INVESTIGATIONS: Hemoglobin is 8.4, potassium 4.3. Chest x-ray shows some cardiomegaly. This is a portable film. There may be small pleural effusion. ASSESSMENT: 1. Mitral valve repair. 2. Dilutional thrombocytopenia. 3. Acute blood loss anemia expected from surgery. 4. Hypotension, symptomatic, from blood loss anemia. 5. Hyperglycemia, on sliding scale insulin. 6. Atelectasis. 7. Cardiomegaly on chest x-ray. PLAN: Continue current medication and treatment plan. Will follow.
[2016-08-27] MEDS: SENNOSIDES-DOCUSATE SODIUM 1 EACH TAB PO SCH (22:55)
[2016-08-28 02:38] LABS: Glucose,Whole Blood 116 mg/dL (75-99)
[2016-08-28] MEDS: KETOROLAC 30 MG/ML 1 ML VIAL IVP PRN (03:39)
[2016-08-28 05:44] LABS: Glucose,Whole Blood 101 mg/dL (75-99)
[2016-08-28] MEDS: INSULIN LISPRO (humaLOG) 300 UNIT/3 ML VIAL SQ SCH ×3 (06:20→17:13)
[2016-08-28] MEDS: PANTOPRAZOLE 40 MG TABLET PO SCH (06:20)
--- NOTE | 2016-08-28 07:11 | XR ---
EXAMINATION TYPE: XR chest 2V DATE OF EXAM: 08/28/2016 6:34 AM COMPARISON: 08/27/2016 HISTORY: Shortness of breath TECHNIQUE: Frontal and lateral views of the chest are obtained. FINDINGS: Right-sided chest tube has been removed. No sizable right-sided pneumothorax identified. Basilar airs pace consolidation persists. Suspect small left-sided effusion. Mild cardiomegaly. Hilar and mediasti nal structures are stable. IJ sheath has been removed. IMPRESSION: 1 persistent basilar consolidation. 2. No sizable right-sided pneumothorax status post chest tube removal.
[2016-08-28 07:18] LABS: Anion Gap 10 mmol/L; Blood Urea Nitrogen 19 mg/dL (9-20); Calcium 8.8 mg/dL (8.4-10.2); Carbon Dioxide 26 mmol/L (22-30); Chloride 105 mmol/L (98-107); Glucose 97 mg/dL (74-99); Non-African American GFR(MDRD) >60 (>60 ml/min/1.73 sqM); Potassium 4.1 mmol/L (3.5-5.1); Sodium 141 mmol/L (137-145)
[2016-08-28 07:31] LABS: CH 31.6; CHCM 33.3; HCT 27.4 % (39.0-53.0); HDW 2.41; HGB 9.3 gm/dL (13.0-17.5); MCH 32.3 pg (25.0-35.0); MCHC 33.8 g/dL (31.0-37.0); MCV 95.3 fL (80.0-100.0); Mean Platelet Volume 6.9; RBC 2.87 m/uL (4.30-5.90); WBC 7.3 k/uL (3.8-10.6)
[2016-08-28] MEDS: LACTATED RINGERS 1,000 ML IV SCH (07:38)
[2016-08-28] MEDS: METOPROLOL TARTRATE 12.5 MG TAB PO SCH (08:05)
[2016-08-28] MEDS: HEPARIN SODIUM,PORCINE 5,000 UNIT/ML 1 ML VIAL SQ SCH ×2 (08:05→15:08)
[2016-08-28] MEDS: ASPIRIN 325 MG TAB PO SCH (08:06)
[2016-08-28] MEDS: CLOPIDOGREL 75 MG TAB PO SCH (08:06)
[2016-08-28] MEDS: ATORVASTATIN 40 MG TAB PO SCH (08:06)
[2016-08-28] MEDS: IPRATROPIUM-ALBUTEROL 3 ML NEB INHALATION SCH ×4 (08:15→19:25)
--- NOTE | 2016-08-28 09:05 | P.PN ---
Subjective Principal diagnosis: Severe mitral valve regurgitation from a flail P2 segment. Hypertension. Hyperlipidemia. Mild left ventricular dysfunction. POD #4 complex mitral valve repair with triangular resection of P2 and posterior annuloplasty using a 36 mm AnnuloFlex band. Exclusion of the left atrial appendage using a 50 mm atrial clip. Intraoperative transesophageal echocardiogram and epi-aortic scanning. Patient currently sitting up in a chair in no apparent distress. Moved to 6 E. selective care yesterday. Chest tubes discontinued yesterday. States his pain is better controlled. No new concerns or questions at this time. Objective - Vital Signs Vital signs: Vital Signs Temp 98.2 F 08/27/16 20:00 Pulse 84 08/28/16 08:29 Resp 19 08/28/16 04:00 BP 104/70 08/28/16 04:00 Pulse Ox 93 L 08/28/16 08:18 Intake & Output 08/27/16 08/28/16 08/28/16 18:59 06:59 18:59 Intake Total 236 0 180 Output Total 395 Balance -159 0 180 Weight 88.3 kg Intake: IV 236 0 LR 200 0 Pressure Bag 36 Oral 180 Output: Chest Tube Drainage 20 Chest Tube Mediastinal 0 Chest Tube Right 20 Urine 375 Other: Voiding Method Urinal Urinal # Voids 1 ABP, PAP, CO, CI - Last Documented Arterial Blood Pressure 127/75 Pulmonary Artery Pressure 34/22 Cardiac Output 10.7 Cardiac Index 5.4 - Constitutional General appearance: Present: cooperative, no acute distress - Respiratory Details: Lungs sounds diminished bilaterally. Respirations even, nonlabored. Currently on 6 L high flow with oxygen saturation 93%. Able to achieve 1500 mL on his incentive spirometry. Minimally effective cough. - Cardiovascular Details: S1, S2 present. Regular rate and rhythm, normal sinus rhythm with first-degree AV block on telemetry. A/V epicardial pacemakers present but grounded. Heart hugger in place with patient demonstrating appropriate use. Teds/SCDs present. No edema present. - Gastrointestinal Gastrointestinal Comment(s): Abdomen soft, nontender, nondistended. Active bowel sounds 4 quadrants. Positive bowel movement. Tolerating diet. - Genitourinary Genitourinary Comment(s): Continues to void clear, yellow urine. - Integumentary Integumentary Comment(s): Anterior chest incision well approximated covered with dry intact dressing - Musculoskeletal Musculoskeletal: Present: gait normal, strength equal bilaterally - Psychiatric Psychiatric: Present: A&O x's 3, appropriate affect, intact judgment & insight - Allied health notes Allied health notes reviewed: nursing - Labs CBC & Chem 7: 08/28/16 06:38 08/28/16 06:38 Labs: Abnormal Lab Results - Last 24 Hours (Table) 08/27/16 08/27/16 08/28/16 Range/Units 11:56 20:42 02:37 RBC (4.30-5.90) m/uL Hgb (13.0-17.5) gm/dL Hct (39.0-53.0) % POC Glucose (mg/dL) 109 H 133 H 116 H (75-99) mg/dL 08/28/16 08/28/16 Range/Units 05:42 06:38 RBC 2.87 L (4.30-5.90) m/uL Hgb 9.3 L (13.0-17.5) gm/dL Hct 27.4 L (39.0-53.0) % POC Glucose (mg/dL) 101 H (75-99) mg/dL - Imaging and Cardiology Chest x-ray: report reviewed, image reviewed Assessment and Plan (1) Hyperlipidemia Status: Acute (2) Hypertension Status: Acute (3) Severe mitral regurgitation Status: Acute Plan: 1. Continue aspirin, Lipitor, Plavix, heparin subcu. 2. Wean oxygen as tolerated. Encourage incentive spirometry use. 3. Will give lasix 20 mg IVP twice a day 3 doses. 4. GI/DVT prophylaxis. 5. Increase activity. Ambulate in hallway. Physical therapy to follow. 6. Labs, chest x-ray in the morning. 7. More recommendations as patient progresses. Time with Patient: Greater than 30
[2016-08-28] MEDS: FUROSEMIDE 10 MG/ML 2 ML VIAL IV SCH ×2 (09:59→15:48)
[2016-08-28] MEDS: HYDROcodone/APAP 5-325MG 1 EACH TAB PO PRN (11:13)
--- NOTE | 2016-08-28 11:25 | P.PN ---
Subjective Principal diagnosis: Severe mitral regurgitation This is a very pleasant 45-year-old gentleman with a known history of severe mitral regurgitation. He was admitted electively for a mitral valve repair which was performed 08/24/[address] Roy. This is postoperative day #2. Seen in follow-up in the intensive care unit. He is awake and alert in no acute distress. He is sitting up in the chair at the bedside. He denies any worsening shortness of breath, cough or congestion. He is currently pulling approximately 500 MLS on his incentive spirometer. [address] in [address] He has a lactated [facility] at [facility]. He's utilizing 5 L/m per nasal cannula to maintain O2 saturations in the 90s. Chest x-ray reveals lower lobe atelectasis. Hemoglobin 8.8. He is seen again today 08/27/2016 in follow-up in the intensive care unit. He is currently sitting up in the chair at the bedside. He is doing better today as compared to yesterday. He is still pulling about 1 L on the incentive spirometer. He is performing coughing and deep breathing exercises. His chest x-ray is stable. A hemoglobin remains stable at 8.4. He's been up ambulating with assistance. The patient is seen again today 08/28/2016 in follow-up on the selective care unit. He is awake and alert in no acute distress. He is currently sitting up in the chair at the bedside. His pain is well controlled. He is doing better with the incentive spirometer pulling impressively 1250 MLS. He has been up ambulating with assistance. His chest x-ray stable. Objective - Vital Signs Vital signs: Vital Signs Temp 98.2 F 08/27/16 20:00 Pulse 84 08/28/16 08:29 Resp 19 08/28/16 08:00 BP 118/67 08/28/16 08:00 Pulse Ox 93 L 08/28/16 08:18 Intake & Output 08/27/16 08/28/16 08/28/16 18:59 06:59 18:59 Intake Total 236 0 180 Output Total 395 Balance -159 0 180 Weight 88.3 kg Intake: IV 236 0 LR 200 0 Pressure Bag 36 Oral 180 Output: Chest Tube Drainage 20 Chest Tube Mediastinal 0 Chest Tube Right 20 Urine 375 Other: Voiding Method Urinal Urinal Urinal # Voids 1 ABP, PAP, CO, CI - Last Documented Arterial Blood Pressure 127/75 Pulmonary Artery Pressure 34/22 Cardiac Output 10.7 Cardiac Index 5.4 - Exam GENERAL EXAM: Alert, active, comfortable in no apparent distress. HEAD: Normocephalic. EYES: Normal reaction of pupils, equal size. NOSE: Clear with pink turbinates. THROAT: No erythema or exudates. NECK: No masses, no JVD. CHEST: Sternal dressing is dry and intact. LUNGS: Equal air entry with crackles in the posterior bases more so on the left. CVS: S1 and S2 normal with no audible murmurs, regular rhythm. ABDOMEN: No hepatosplenomegaly, normal bowel sounds, no guarding or rigidity. SPINE: No scoliosis or deformity SKIN: No rashes CENTRAL NERVOUS SYSTEM: No focal deficits, tone is normal in all 4 extremities. Extremities: There is trace peripheral edema. No clubbing, no cyanosis. Peripheral pulses are intact. - Labs CBC & Chem 7: 08/28/16 06:38 08/28/16 06:38 Labs: Abnormal Lab Results - Last 24 Hours (Table) 08/27/16 08/27/16 08/28/16 Range/Units 11:56 20:42 02:37 RBC (4.30-5.90) m/uL Hgb (13.0-17.5) gm/dL Hct (39.0-53.0) % POC Glucose (mg/dL) 109 H 133 H 116 H (75-99) mg/dL 08/28/16 08/28/16 Range/Units 05:42 06:38 RBC 2.87 L (4.30-5.90) m/uL Hgb 9.3 L (13.0-17.5) gm/dL Hct 27.4 L (39.0-53.0) % POC Glucose (mg/dL) 101 H (75-99) mg/dL Assessment and Plan Plan: Impression: #1 Severe mitral regurgitation, status post mitral valve repair. Postoperative day #3. #2 Hypertension. #3 Hyperlipidemia. Plan: The patient was seen and evaluated by Dr. Senior. His chest x-ray is stable. He is again educated regarding the importance of the increased use and do incentive spirometer and cough and deep breathing exercises. We'll increase his activity as tolerated. We'll continue to follow.
[2016-08-28 11:37] LABS: Glucose,Whole Blood 133 mg/dL (75-99)
[2016-08-28 17:05] LABS: Glucose,Whole Blood 98 mg/dL (75-99)
--- NOTE | 2016-08-28 18:01 | PN ---
DATE OF SERVICE: 08/28/2016 PRESENTING COMPLAINT: Mitral valve replacement surgery, medical management. INTERVAL HISTORY: This is a 45-year-old male who is postop day #4 from mitral valve replacement. Today patient is sitting at the bedside, awake, alert, no discomfort noted or voiced. No complaints of feeling lightheaded or dizzy today. Review of systems done for constitutional, cardiovascular, GI, and pulmonary, with relevant findings as above. CURRENT MEDICATIONS: [facility], albumin, Plavix, Lipitor, Protonix, Senokot, heparin. PHYSICAL EXAM: VITAL SIGNS: Temperature 98.2, pulse 88, respirations 18, blood pressure 118/67, oxygen saturation 96% on 6 L nasal cannula. GENERAL APPEARANCE: Patient is sitting up at the bedside, awake, alert, no acute distress noted or voiced. EYES: Pupils equal. Conjunctivae are normal. NECK: JVD not raised. Mass not palpable. Lung sounds diminished throughout. Respiratory effort normal, unlabored. CARDIOVASCULAR: First and second sounds noted. No edema. ABDOMEN: Soft, nontender. Liver and spleen not palpable. PSYCHIATRY: Alert and oriented x3. Mood and affect normal. CHEST WALL: Midline chest wall incision noted. Surgical dressing remains in place. No shadowing of any drainage noted. INVESTIGATIONS: White blood cell count 7.3, hemoglobin 9.3, platelet count 186, sodium 141, potassium 4.1. Chest x-ray, persistent bibasilar consolidation. No sizable right-sided pneumothorax noted. ASSESSMENT: 1. Status post mitral valve repair. 2. Delusional thrombocytopenia. 3. Acute blood loss anemia, expected from surgery. 4. Hypotension, symptomatic from blood loss anemia. 5. Hyperglycemia on a small dose of insulin. 6. Atelectasis. Patient will continue to receive some IV fluids. Will continue to follow patient's progress. Patient was seen and examined by nurse practitioner, Geena Headley and all elements of the case was discussed with attending, Dr. Waldron.
[2016-08-28] MEDS ORDERED: SENNOSIDES-DOCUSATE SODIUM 1 EACH TAB PO ONE (21:37)
[2016-08-28] MEDS ORDERED: HYDROcodone/APAP 5-325MG 1 EACH TAB ONE (21:37)
[2016-08-28] MEDS ORDERED: METOPROLOL TARTRATE 12.5 MG TAB ONE (21:37)
[2016-08-28 23:05] LABS: Glucose,Whole Blood 113 mg/dL (75-99)
[2016-08-29] MEDS ORDERED: HEPARIN SODIUM,PORCINE 5,000 UNIT/ML 1 ML VIAL ONE
[2016-08-29] MEDS: INSULIN LISPRO (humaLOG) 300 UNIT/3 ML VIAL SQ SCH ×3 (02:47→12:04)
[2016-08-29] MEDS: METOPROLOL TARTRATE 12.5 MG TAB PO SCH ×2 (02:48→09:21)
[2016-08-29] MEDS: SENNOSIDES-DOCUSATE SODIUM 1 EACH TAB PO SCH (02:48)
[2016-08-29] MEDS: HEPARIN SODIUM,PORCINE 5,000 UNIT/ML 1 ML VIAL SQ SCH ×2 (02:48→09:22)
[2016-08-29 05:55] LABS: Glucose,Whole Blood 101 mg/dL (75-99)
[2016-08-29 06:30] LABS: CHCM 32.5; HCT 26.1 % (39.0-53.0); HDW 2.42; HGB 8.4 gm/dL (13.0-17.5); MCH 30.9 pg (25.0-35.0); MCHC 32.2 g/dL (31.0-37.0); MCV 95.9 fL (80.0-100.0); Mean Platelet Volume 6.9; RBC 2.72 m/uL (4.30-5.90); RDW 13.1 % (11.5-15.5); WBC 5.4 k/uL (3.8-10.6)
[2016-08-29 06:43] LABS: Anion Gap 8 mmol/L; Blood Urea Nitrogen 19 mg/dL (9-20); Calcium 8.7 mg/dL (8.4-10.2); Carbon Dioxide 29 mmol/L (22-30); Chloride 104 mmol/L (98-107); Glucose 94 mg/dL (74-99); Magnesium 1.9 mg/dL (1.6-2.3); Non-African American GFR(MDRD) >60 (>60 ml/min/1.73 sqM); Potassium 4.3 mmol/L (3.5-5.1); Sodium 141 mmol/L (137-145)
[2016-08-29] MEDS: PANTOPRAZOLE 40 MG TABLET PO SCH (07:01)
--- NOTE | 2016-08-29 08:20 | P.PN ---
Subjective Principal diagnosis: Severe mitral valve regurgitation from a flail P2 segment. Hypertension. Hyperlipidemia. Mild left ventricular dysfunction. POD #5 complex mitral valve repair with triangular resection of P2 and posterior annuloplasty using a 36 mm AnnuloFlex band. Exclusion of the left atrial appendage using a 50 mm atrial clip. Intraoperative transesophageal echocardiogram and epi-aortic scanning. Patient currently sitting up in a chair in no apparent distress. States his pain is controlled. Diuresed nicely after initiation of Lasix yesterday. Would like to go home today. Objective - Vital Signs Vital signs: Vital Signs Temp 98.2 F 08/27/16 20:00 Pulse 97 08/29/16 04:00 Resp 19 08/29/16 04:00 BP 102/64 08/29/16 00:00 Pulse Ox 93 L 08/29/16 04:00 Intake & Output 08/28/16 08/29/16 08/29/16 18:59 06:59 18:59 Intake Total 602 Output Total 300 900 Balance 302 -900 Weight 86.1 kg Intake: IV 0 LR 0 Oral 602 Output: Urine 300 900 Other: Voiding Method Urinal Urinal ABP, PAP, CO, CI - Last Documented Arterial Blood Pressure 127/75 Pulmonary Artery Pressure 34/22 Cardiac Output 10.7 Cardiac Index 5.4 - Constitutional General appearance: Present: cooperative, no acute distress - Respiratory Details: Lungs sounds diminished bilaterally area respirations even, nonlabored. Currently on room air with oxygen saturation 93%. Able to achieve 1500 mL on incentive spirometry. - Cardiovascular Details: S1, S2 present. Regular rate and rhythm, normal sinus rhythm to sinus tach with first-degree AV block. Sternum stable. Heart hugger in place with patient demonstrating appropriate use. No edema present. Teds/SCDs present. A /V epicardial pacemaker wires present but grounded. - Gastrointestinal Gastrointestinal Comment(s): Abdomen soft, nontender, nondistended. Active bowel sounds 4 quadrants. Tolerating diet. States he's had 2 bowel movements since surgery, the last being yesterday. - Genitourinary Genitourinary Comment(s): Continues to void Clear, yellow urine. - Integumentary Integumentary Comment(s): Anterior chest incision well approximated and covered with dry intact dressing. - Musculoskeletal Musculoskeletal: Present: gait normal, strength equal bilaterally - Psychiatric Psychiatric: Present: A&O x's 3, appropriate affect, intact judgment & insight - Allied health notes Allied health notes reviewed: nursing - Labs CBC & Chem 7: 08/29/16 05:51 08/29/16 05:51 Labs: Abnormal Lab Results - Last 24 Hours (Table) 08/28/16 08/28/16 08/29/16 Range/Units 11:34 21:02 05:51 RBC 2.72 L (4.30-5.90) m/uL Hgb 8.4 L (13.0-17.5) gm/dL Hct 26.1 L (39.0-53.0) % POC Glucose (mg/dL) 133 H 113 H (75-99) mg/dL 08/29/16 Range/Units 05:54 RBC (4.30-5.90) m/uL Hgb (13.0-17.5) gm/dL Hct (39.0-53.0) % POC Glucose (mg/dL) 101 H (75-99) mg/dL Assessment and Plan (1) Hyperlipidemia Status: Acute (2) Hypertension Status: Acute (3) Severe mitral regurgitation Status: Acute Plan: 1. Continue aspirin, Lipitor, Plavix, heparin subcu. 2. Encourage incentive spirometry use. 3. Will discontinue epicardial pacemaker wires today 4. GI/DVT prophylaxis. 5. Increase activity. Ambulate in hallway. Physical therapy to follow. 6. Likely will discharge home with home care this afternoon. Time with Patient: Greater than 30
[2016-08-29] MEDS: IPRATROPIUM-ALBUTEROL 3 ML NEB INHALATION SCH ×2 (08:24→11:59)
[2016-08-29] MEDS: ASPIRIN 325 MG TAB PO SCH (09:21)
[2016-08-29] MEDS: FUROSEMIDE 10 MG/ML 2 ML VIAL IV SCH (09:21)
[2016-08-29] MEDS: CLOPIDOGREL 75 MG TAB PO SCH (09:22)
[2016-08-29] MEDS: ATORVASTATIN 40 MG TAB PO SCH (09:22)
[2016-08-29] MEDS: HYDROcodone/APAP 5-325MG 1 EACH TAB PO PRN (09:24)
--- NOTE | 2016-08-29 09:37 | PN ---
Mr. Bolton is a 45-year-old gentleman with history of mitral valve prolapse with ruptured chordae and severe mitral regurgitation. Patient had mitral valve repair done on the 24 of August. Patient is in the telemetry unit. He is alert, awake and sitting in the chair. He seems to be getting stronger and feeling better. Patient is using incentive spirometry. He has mild chest discomfort. He is maintaining sinus rhythm, does not appear to be in acute distress. His blood pressure is about 104/70, pulse rate is about 84, afebrile. Pulse ox is about 93%. Lungs appear to be clear with diminished breath sounds at bases. Heart is irregular. Abdomen is soft. Extremities, no significant edema. Lab values showed hemoglobin of 9.3. His creatinine is 0.8. Potassium is 4.1. FINAL IMPRESSION: 1. Status post mitral valve repair. 2. Hyperlipidemia. 3. Hypertension. Patient is on a small dose of Lasix. Will continue with the incentive spirometry. We will continue the aspirin, Lipitor, Plavix and metoprolol. MTDD
[2016-08-29 10:39] VITALS: TEMP 98
--- NOTE | 2016-08-29 10:48 | P.DS ---
Providers Date of admission: 08/24/16 05:52 Attending physician: Diana Roy Consults: 08/24/16 15:32 Consult Physician Routine Consulting Provider: Liset Patrick Consult Reason/Comments: Street Engineer Consult: post cardiac surgery Do you want consulting provider notified?: Yes Consult Physician Routine Consulting Provider: Gigi Waldron Consult Reason/Comments: medical management Do you want consulting provider notified?: Yes Consult Physician Routine Consulting Provider: Rosemary Murry Consult Reason/Comments: Rubber Block Layer Consult: post cardiac surgery Do you want consulting provider notified?: Yes Primary care physician: Keaton Lr - Discharge Diagnosis(es) (1) Hyperlipidemia Current Visit: No Status: Acute (2) Hypertension Current Visit: No Status: Acute (3) Severe mitral regurgitation Current Visit: No Status: Acute Hospital Course: FINAL DIAGNOSIS: 1.[Severe mitral valve regurgitation from a flail P2 segment] 2.[Hypertension] 3.[Hyperlipidemia] 4.[Mild left ventricular dysfunction] PRINCIPAL PROCEDURE: 1.[Elective complex mitral valve repair with triangular resection of P2 and posterior annuloplasty using a 36 mm AnnuloFlex band] 2.[Exclusion of the left atrial appendage using a 50 mm AtriClip] 3.[Intraoperative transesophageal echocardiogram and epi-aortic scanning] HISTORY OF PRESENT ILLNESS: [This 45-year-old gentleman was being followed by Dr. Murry for mitral valve disease, specifically mitral valve prolapse and mitral regurgitation. He reported increasing fatigue and dyspnea on exertion. With request Dr. Murry, the patient underwent heart catheterization and transesophageal echocardiogram. His heart catheterization had demonstrated 50% stenosis of the LAD and 20-30% stenosis of the RCA. The SHAZIA revealed severe mitral regurgitation with flail posterior mitral valve leaflet. Dr. Roy was consulted for evaluation for mitral valve repair versus replacement without surgical revascularization as Dr. Murry felt that the LAD can be stented at a later time. An extensive discussion was had with the patient and his , all risks and benefits were explained, and consent was obtained to proceed with surgery. Preoperative testing was ordered and completed while the patient was in the hospital post cardiac catheterization, and he was discharged home to obtain dental clearance prior to surgery.] HOSPITAL COURSE:[ This gentleman was brought to the hospital on 08/24/2016, taken to the preoperative area, prepared in the usual fashion, and subsequently taken to the operating room where Dr. Roy performed an elective complex mitral valve repair with triangular resection of P2 and posterior annuloplasty using a 36 mm AnnuloFlex band, exclusion of the left atrial appendage using a 50 mm AtriClip, intraoperative transesophageal echocardiogram and epi-aortic scanning. Upon completion of surgery, the patient was transferred to the cardiovascular intensive care unit where he was recovered, monitored hemodynamically, and where he progressed to cardiac rehabilitation phase 1. He was extubated, all lines, tubes and drips were discontinued when appropriate, and he was transferred to [address] [place] [address] for further monitoring and rehabilitation. His oxygen was titrated down, he continued to work with physical therapy, and was ready to be discharged home on postoperative day #5 with [facility] to follow. He received written and verbal instruction regarding his medications, activity restrictions, signs and symptoms requiring physician notification, and follow-up appointments.] COMPLICATIONS: [The patient experienced no postoperative complications.] CONSULTATIONS: 1.[ Dr. Murry for cardiology] 2.[ Dr. Patrick for pulmonology] 3.[ Dr. Waldron for medical management] DISCHARGE INSTRUCTIONS: 1. No driving for 4 weeks, or until physician gives their ok. 2. The patient should sleep in their own bed, no medical bed needed. 3. Stairs are not an issue. If the bedroom is upstairs, it is advised that the patient go up at night and down in the morning for the first week. Go slowly, using handrail and take 1 step at a time. 4. LISA hose are to be worn for 30 days or until physician discontinues. 5. Heart hugger is to be worn 100% of the time until physician discontinues.( except when showering) 6. No lifting, pushing, or pulling more than 10 pounds for 12 weeks. The physician will advise of any restriction changes. 7. The patient is expected to continue the prescribed walking program. 8. Continue pain control per as needed orders. 9. Continue with incentive spirometry and splinting/heart hugger until otherwise directed by the physician. 10. Must shower daily using liquid antibacterial soap and a separate white washcloth for each individual incision. 11. Routine sternal incision care. No lotions, powders, ointments on incision.Allow Dermabond to fall off on its own. HOME HEALTH SERVICES TO PROVIDE: RN SKILLED HOME CARE SERVICES FOR POST-OP SURGICAL PATIENTS WITH THE FOLLOWING: Coronary Artery Bypass Surgery (CABG), Mitral Valve Replacement/ Repair ( MVR), Aortic Valve Replacement/Repair (AVR) RN TO CONTINUE EDUCATION FROM ``ROAD TO A HEALTH HEART PATIENT EDUCATION MANUAL (GIVEN TO PATIENT IN THE HOSPITAL) MEDICATION RECONCILIATION WITH EDUCATION NEEDED ON FIRST HOME VISIT EMPHASIZE IMPORTANCE OF WEARING HEART HUGGER ENCOURAGE USE OF INCENTIVE SPIROMETER 10 X EVERY HOUR WHILE AWAKE ENCOURAGE UTILIZATION OF LOWER EXTREMITY COMPRESSION STOCKINGS/LISA HOSE and ELEVATE LEGS ABOVE LEVEL OF HEART WHILE AT REST. ENCOURAGE AMBULATION 3-5x/day INCREASING TOLERATES, WHILE AVOID EXTREMES IN TEMPERATURE FREQUENCY: RN TO OPEN THE PATIENT WITHIN 24 HOURS OF DISCHARGE FROM THE HOSPITAL WITH TELEHEALTH INSTALLED AT THE [facility], RN TO VISIT 2-3 X A WEEK FOR 4 WEEKS ESTABLISHED BY PATIENT NEEDS. LABORATORY: CBC, CMP TO BE DRAWN ON THE THIRD DAY HOME, Tuesday09/01/2016 (RAN STAT ) FAX RESULTS TO [phone]. TELEHEALTH PARAMETERS: WEIGHT: NOTIFY MD OF WEIGHT GAIN OF 2 LBS IN 24 HOURS OR 5 LBS IN ONE WEEK HR: NOTIFY MD OF HR <55 BPM OR HR>100 BPM BP: NOTIFY MD IF BP <90/55 OR BP>140/100 O2 SAT: NOTIFY MD IF PO2<93% ON ROOM AIR SEND TELEHEALTH REPORT TO TRANSPORTATION MAINTENANCE WORKER AND CARDIOVASCULAR SURGEON THE FIRST WEEK OF CARE AND THEN BI-WEEKLY. PLEASE ADDITIONALLY COMMUNICATE ANY ABNORMALS AND NEW FINDINGS TO THE SURGEONS OFFICE. Plan - Discharge Summary New Discharge Prescriptions: Aspirin 325 mg PO DAILY #30 tab Atorvastatin [Lipitor] 40 mg PO DAILY #30 tab Clopidogrel [Plavix] 75 mg PO DAILY #30 tab Furosemide [Lasix] 40 mg PO DAILY #7 tablet HYDROcodone/APAP 5-325MG [[place] 5-325] 1 - 2 each PO Q6HR PRN #120 tab PRN Reason: Severe Pain Metoprolol Tartrate [Lopressor] 25 mg PO BID #60 tab Pantoprazole [Protonix] 40 mg PO AC-BRKFST #30 tablet. Potassium Chloride ER [K-Dur 10] 10 meq PO DAILY #7 tab Discharge Medication List Aspirin 325 mg PO DAILY #30 tab 08/29/16 [Rx] Atorvastatin [Lipitor] 40 mg PO DAILY #30 tab 08/29/16 [Rx] Clopidogrel [Plavix] 75 mg PO DAILY #30 tab 08/29/16 [Rx] Furosemide [Lasix] 40 mg PO DAILY #7 tablet 08/29/16 [Rx] HYDROcodone/APAP 5-325MG [[place] 5-325] 1 - 2 each PO Q6HR PRN #120 tab 08/29/16 [Rx] Metoprolol Tartrate [Lopressor] 25 mg PO BID #60 tab 08/29/16 [Rx] Pantoprazole [Protonix] 40 mg PO AC-BRKFST #30 tablet. 08/29/16 [Rx] Potassium Chloride ER [K-Dur 10] 10 meq PO DAILY #7 tab 08/29/16 [Rx] Sennosides-Docusate Sodium [Senokot-S] 2 each PO HS tab 08/29/16 [Rx] Follow up Appointment(s)/Referral(s): [facility], [NON-STAFF] - Samanta Rosenthal NPC [Nurse Practitioner] - 09/02/16 12:00 pm Rosemary Murry MD [STAFF PHYSICIAN] - 2 Weeks Diana Roy MD [STAFF PHYSICIAN] - 3 Weeks Bola Senior DO [Doctor of Osteopathic Medicine] - 2 Weeks Keaton Lr DO [Primary Care Provider] - 1 Week Ambulatory/Diagnostic Orders: Complete Blood Count w/diff [LAB.AMB] Time Frame: 3 Days, Location: Determined By Patient Comprehensive Metabolic Panel [LAB.AMB] Time Frame: 3 Days, Location: Determined By Patient Activity/Diet/Wound Care/Special Instructions: DISCHARGE INSTRUCTIONS: 1. No driving for 4 weeks, or until physician gives their ok. 2. The patient should sleep in their own bed, no medical bed needed. 3. Stairs are not an issue. If the bedroom is upstairs, it is advised that the patient go up at night and down in the morning for the first week. Go slowly, using handrail and take 1 step at a time. 4. LISA hose are to be worn for 30 days or until physician discontinues. 5. Heart hugger is to be worn 100% of the time until physician discontinues.( except when showering) 6. No lifting, pushing, or pulling more than 10 pounds for 12 weeks. The physician will advise of any restriction changes. 7. The patient is expected to continue the prescribed walking program. 8. Continue pain control per as needed orders. 9. Continue with incentive spirometry and splinting/heart hugger until otherwise directed by the physician. 10. Must shower daily using liquid antibacterial soap and a separate white washcloth for each individual incision. 11. Routine sternal incision care. No lotions, powders, ointments on incision.Allow Dermabond to fall off on its own. HOME HEALTH SERVICES TO PROVIDE: RN SKILLED HOME CARE SERVICES FOR POST-OP SURGICAL PATIENTS WITH THE FOLLOWING: Coronary Artery Bypass Surgery (CABG), Mitral Valve Replacement/ Repair ( MVR), Aortic Valve Replacement/Repair (AVR) RN TO CONTINUE EDUCATION FROM ``ROAD TO A HEALTH HEART PATIENT EDUCATION MANUAL (GIVEN TO PATIENT IN THE HOSPITAL) MEDICATION RECONCILIATION WITH EDUCATION NEEDED ON FIRST HOME VISIT EMPHASIZE IMPORTANCE OF WEARING HEART HUGGER ENCOURAGE USE OF INCENTIVE SPIROMETER 10 X EVERY HOUR WHILE AWAKE ENCOURAGE UTILIZATION OF LOWER EXTREMITY COMPRESSION STOCKINGS/LISA HOSE and ELEVATE LEGS ABOVE LEVEL OF HEART WHILE AT REST. ENCOURAGE AMBULATION 3-5x/day INCREASING TOLERATES, WHILE AVOID EXTREMES IN TEMPERATURE FREQUENCY: RN TO OPEN THE PATIENT WITHIN 24 HOURS OF DISCHARGE FROM THE HOSPITAL WITH TELEHEALTH INSTALLED AT THE [facility], RN TO VISIT 2-3 X A WEEK FOR 4 WEEKS ESTABLISHED BY PATIENT NEEDS. LABORATORY: CBC, CMP TO BE DRAWN ON THE THIRD DAY HOME, Tuesday09/01/2016 (RAN STAT ) FAX RESULTS TO [phone]. TELEHEALTH PARAMETERS: WEIGHT: NOTIFY MD OF WEIGHT GAIN OF 2 LBS IN 24 HOURS OR 5 LBS IN ONE WEEK HR: NOTIFY MD OF HR <55 BPM OR HR>100 BPM BP: NOTIFY MD IF BP <90/55 OR BP>140/100 O2 SAT: NOTIFY MD IF PO2<93% ON ROOM AIR SEND TELEHEALTH REPORT TO TRANSPORTATION MAINTENANCE WORKER AND CARDIOVASCULAR SURGEON THE FIRST WEEK OF CARE AND THEN BI-WEEKLY. PLEASE ADDITIONALLY COMMUNICATE ANY ABNORMALS AND NEW FINDINGS TO THE SURGEONS OFFICE. Discharge Disposition: HOME WITH HOME HEALTH SERVICES
[2016-08-29 11:47] LABS: Glucose,Whole Blood 138 mg/dL (75-99)
--- NOTE | 2016-08-29 11:53 | PN ---
DATE OF SERVICE: 08/28/2016 ATTENDING NOTE: Patient was seen and examined by me. I reviewed the note by my nurse practitioner, Ms. Headley. I agree with her note and the rest as below. Patient is status post mitral valve repair. Doing better. Oxygen requirements have come down to 3-L. Tolerating a diet. Has been out of bed. On examination, LUNGS: Decreased breath sounds at bases. CARDIOVASCULAR: First and second sounds normal. PSYCH: Alert and oriented x3. INVESTIGATIONS: Hemoglobin 9.3. Potassium 4.1. ASSESSMENT: 1. Mitral valve repair. 2. Dilutional thrombocytopenia. 3. Cardiomegaly in the x-ray. PLAN: Patient's oxygen requirement is coming down. Chest x-ray results are noted. Continue the current medication and treatment plan and follow.
[2016-08-29 12:51] VITALS: BP 104/66; PULSE 102
--- NOTE | 2016-08-29 18:10 | PN ---
DATE OF SERVICE: 08/29/2016 PRESENTING COMPLAINT: Mitral valve replacement surgery, medical management. INTERVAL HISTORY: This is a 45-year-old male who is postop day 5 from a mitral valve replacement. Today patient is sitting at the bedside looking comfortable; awake, alert, no discomfort noted or voiced. Would like to go home. Review of systems done for constitutional, cardiovascular, GI and pulmonary with relevant findings as above. CURRENT MEDICATIONS: 1. [place]. 2. Albumin. 3. Plavix. 4. Lipitor. 5. Protonix. 6. Senokot. 7. Heparin. PHYSICAL EXAMINATION: VITAL SIGNS: Temperature 98.0, pulse 97, blood pressure 117/74, oxygen saturation 92% on room air. GENERAL APPEARANCE: Patient is sitting at the bedside, with him; awake, alert. No acute distress noted or voiced. EYES: Pupils equal. Conjunctivae normal. NECK: JVD not raised. Mass not palpable. Lung sounds diminished throughout. Respiratory effort normal. Unlabored. CARDIOVASCULAR: First and second sounds noted. No edema. ABDOMEN: Soft, nontender. Liver and spleen not palpable. PSYCHIATRY: Alert and oriented x3. Mood and affect normal. CHEST WALL: Midline dressing incision noted. Surgical dressing remains in place. No shadowing of any drainage noted. INVESTIGATIONS: White blood cell count 5.4, hemoglobin 8.4, platelet count 215. Sodium 141, potassium 4.3, BUN 19, creatinine 0.74. ASSESSMENT: 1. Status post mitral valve repair. 2. Dilutional thrombocytopenia. 3. Acute blood loss anemia, expected from surgery. 4. Hypotension, symptomatic from blood loss anemia. 5. Hyperglycemia on a small dose of insulin. 6. Atelectasis. Patient is anxious and stable for discharge today. Per Cardiothoracic Surgery, discharge will occur later on today. Patient was seen and examined by Nurse Practitioner Geena Headley and all elements of the case discussed with attending, Dr. Waldron. I performed a history and physical examination of this patient and discussed the same with the dictator. I agree with the dictator's note. Any additional findings/opinions, etc. will be noted.
--- NOTE | 2016-08-29 21:38 | PN ---
DATE OF SERVICE: 08/29/2016 This is a very pleasant 45-year-old gentleman who is status post mitral valve repair, postoperative day #4 for severe mitral regurgitation. He also has a history of hypertension and hyperlipidemia. The patient is doing very well. He is feeling well. He has been weaned down to room air. Saturations are in the mid 90s. Not having any pain or difficulty breathing. Not coughing or wheezing. Not producing any phlegm. No fever or chills. CURRENT VITAL SIGNS: Temperature 98, heart rate 92, respiratory rate 18, blood pressure 117/74, mean 88, saturation on room air of 93 to 95%. Appears in no acute distress. HEENT examination is grossly unremarkable. Mucous membranes are moist. No oral lesions. Neck is supple. Full range of motion. No adenopathy or thyromegaly. Cardiovascular examination reveals regular rhythm and rate. S1, S2 normal. No S3, S4 or murmur. Lungs reveal mostly clear breath sounds. A few scattered mild rhonchi. No wheezes or crackles. ABDOMEN: Soft. Bowel sounds are heard. EXTREMITIES: Intact. No cyanosis, clubbing or edema. Labs are reviewed. White count 5.4, hemoglobin 8.4, hematocrit 26.1, platelet count is 315,000. His electrolyte profile was normal. No x-ray was done. ASSESSMENT: 1. Postoperative day #4 status post mitral valve repair for severe mitral regurgitation. 2. Hypertension. 3. Hyperlipidemia. PLAN: The patient is doing well. Possible discharge today, has not yet been determined by thoracic surgery. Will continue to follow closely. Prognosis is guarded.
--- NOTE | 2016-08-30 10:52 | PN ---
DATE OF SERVICE: 08/29/2016 Mr. Bolton is a 45-year-old gentleman who had mitral valve surgery with repair and annuloplasty. Patient also has history of hypertension and hyperlipidemia. The patient has done well since surgery. His activities gradually increased. Chest tubes were taken out. He is tolerating ambulation very well. He denies any significant chest pain. He does not seem to be in any acute distress. He is being discharged home today. Clinical examination reveals a 45-year-old gentleman who is alert, oriented, does not appear to be in acute distress. Neck is supple. HEART: S1 and S2 heard. Lungs show some diminished breaths in the bases. ABDOMEN: Soft. He is being discharged home today. He will have follow-up with Dr. Murry. His current medications include aspirin, atorvastatin 40 mg, Plavix 75 mg, Lasix 40 mg, metoprolol 25 mg, pantoprazole 40 mg and potassium. FINAL IMPRESSION: 1. Status post mitral valve repair and annuloplasty. 2. Hypertension. 3. Hyperlipidemia.
== END 2016-08-29 16:45 | disposition home health service (06) | DRG 219 ==
LOC: 2ORMAIN 05:52 → 6ICU 14:06 → 6SEL 08-27 19:04
PROVIDERS: ADMIT Surgery; ATTEND Surgery
PROC: 02QG0ZZ Repair Mitral Valve, Open Approach (ICD-10-PCS; principal; 2016-08-24 08:00)
PROC: 02UG0JZ Supplement Mitral Valve with Synthetic Substitute, Open Approach (ICD-10-PCS; principal; 2016-08-24 08:00)
PROC: 5A1221Z Performance of Cardiac Output, Continuous (ICD-10-PCS; principal; 2016-08-24 08:00)
PROC: 02L70CK Occlusion of Left Atrial Appendage with Extraluminal Device, Open Approach (ICD-10-PCS; principal; 2016-08-24 08:00)
PROC: B246ZZ4 Ultrasonography of Right and Left Heart, Transesophageal (ICD-10-PCS; principal; 2016-08-24 08:00)
DX: I34.0 Nonrheumatic mitral (valve) insufficiency (principal); I51.1 Rupture of chordae tendineae, not elsewhere classified; D69.59 Other secondary thrombocytopenia; D62 Acute posthemorrhagic anemia; I44.1 Atrioventricular block, second degree; I10 Essential (primary) hypertension; E78.5 Hyperlipidemia, unspecified; Z79.82 Long term (current) use of aspirin; Z79.899 Other long term (current) drug therapy; I25.10 Atherosclerotic heart disease of native coronary artery without angina pectoris; Z79.02 Long term (current) use of antithrombotics/antiplatelets; R73.9 Hyperglycemia, unspecified
CPT/HCPCS: 71010; 71020; 80048; 80053; 82330; 82805; 83036; 83735; 84100; 85025; 85027; 85520; 85610; 85730; 86850; 86891; 86900; 86901; 86920; 88305; 94002; 94640; 94760

== ENCOUNTER → 2016-11-02 | Outpatient (CLI) | payer BC ==
[2016-11-02 10:09] LABS: ALT 46 U/L (21-72); AST 50 U/L (17-59); Alkaline Phosphatase 85 U/L (38-126); Anion Gap 13 mmol/L; Blood Urea Nitrogen 15 mg/dL (9-20); Calcium 9.8 mg/dL (8.4-10.2); Carbon Dioxide 25 mmol/L (22-30); Chloride 106 mmol/L (98-107); Cholesterol 127 mg/dL (<200); Glucose 83 mg/dL (74-99); HDL Cholesterol 36 mg/dL (40-60); Non-African American GFR(MDRD) >60 (>60 ml/min/1.73 sqM); Potassium 4.1 mmol/L (3.5-5.1); Sodium 144 mmol/L (137-145); Total Bilirubin 0.8 mg/dL (0.2-1.3); Total Protein 7.9 g/dL (6.3-8.2); Triglycerides 113 mg/dL (<150)
== END | disposition home or self-care (01) ==
LOC: LABWHC1 08:32
PROVIDERS: ATTEND Internal Medicine Interventional Cardiology
DX: E78.2 Mixed hyperlipidemia (principal)
CPT/HCPCS: 36415; 80053; 80061

== ENCOUNTER → 2017-09-13 | Outpatient (CLI) | payer BC ==
--- NOTE | 2017-09-13 08:39 | US ---
EXAMINATION TYPE: US thyroid st tissue head/neck DATE OF EXAM: 09/13/2017 COMPARISON: NONE CLINICAL HISTORY: R22.1 NECK SWELLING,LUMP. Patient states lump has been there for 4 years. Scanned palpable area right posterior neck, there is a 2.0 x 0.8 x 1.8 cm oval solid lesion with well circumscribed margins, There is no vascularity associated with this area, IMPRESSION: 1. Solid lesion posterior right likely reflects an enlarged lymph node. Further evaluation of the nec k can be performed with contrast-enhanced CT.
--- NOTE | 2017-09-13 11:05 | USB ---
Reason for exam: clinical finding. Physical Findings: Nurse Summary: right breast palpable posterior nipple, 1 x 1cm, non-tender, left breast posterior nipple prominent tissue (nurse ts). US Breast RT Right complete breast ultrasound includes all four quadrants, the retroareolar region and axilla. Finding demonstrates a 1.6 x 0.6cm solid lesion at the posterior nipple, appears as gynecomastia. These results were verbally communicated with the patient and result sheet given to the patient on 09/13/17. ASSESSMENT: Benign, BI-RAD 2 RECOMMENDATION: Clinical management of the right breast. Manage patient on a clinical basis.
== END | disposition home or self-care (01) ==
LOC: RADUSWWP 07:41
PROVIDERS: ATTEND Family Medicine
DX: R22.1 Localized swelling, mass and lump, neck (principal); N63.0 Unspecified lump in unspecified breast
CPT/HCPCS: 76536

== ENCOUNTER → 2017-09-23 | Outpatient (CLI) | payer BC ==
[2017-09-23 10:54] VITALS: BMI 27.3
--- NOTE | 2017-09-23 11:27 | P.GSHP ---
History of Present Illness H&P Date: 09/23/17 Patient complains of a nodule in his right breast, behind the nipple. It has been there without change for 3-4 years. It is not painful. He also has a growth on the back of his neck and decide to have both evaluated at the same time. He was told he should have it evaluated and possibly removed if it got larger. No pain in his neck or his back. No nipple discharge or changes. No other masses in either breast. patient no testicular lumps or masses. Patient had an ultrasound done of the right breast on 09/04/1917. This revealed a 1.6 cm solid lesion at the posterior nipple appears to be consistent with gynecomastia. The results were noted to be benign. family history: 1. mother pancreatic social: smoke: none alcohol: weekly drugs: none past surgical history: 1 open heart/mitral valve repair past medical history: none - Constitutional Constitutional: Denies chills, Denies fever - EENT Eyes: denies blurred vision, denies pain Ears: deny: decreased hearing, tinnitus Ears, nose, mouth and throat: Denies headache, Denies sore throat - Breasts Breasts: bilateral: as per HPI - Cardiovascular Comment: mitral valve repair - Respiratory Respiratory: Denies cough, Denies 7 - Gastrointestinal Gastrointestinal: Denies abdominal pain, Denies diarrhea, Denies nausea, Denies vomiting - Genitourinary (Male) Genitourinary: Denies dysuria, Denies hematuria - Musculoskeletal Musculoskeletal: Denies myalgias - Integumentary Integumentary: Denies pruritus, Denies rash - Neurological Neurological: Denies numbness, Denies weakness - Psychiatric Psychiatric: Denies anxiety, Denies depression - Endocrine Endocrine: Denies fatigue, Denies weight change - Hematologic/Lymphatic Comment: aspirin - Allergic/Immunologic Allergic/Immunologic: Reports seasonal allergies Past Medical History Past Medical History: Hyperlipidemia, Hypertension Additional Past Medical History / Comment(s): HX HEART MURMUR RESOLVED IN 2017 History of Any Multi-Drug Resistant Organisms: None Reported Past Surgical History: Heart Catheterization Additional Past Surgical History / Comment(s): REPAIR OF MYTROVALVE 2017 Past Anesthesia/Blood Transfusion Reactions: No Reported Reaction Additional Past Anesthesia/Blood Transfusion Reaction / Comment(s): NO PRIOR SX OR ANESTHESIA HX Past Psychological History: No Psychological Hx Reported Smoking Status: Never smoker Past Alcohol Use History: None Reported Past Drug Use History: None Reported - Past Family History Mother Family Medical History: Cancer Medications and Allergies Home Medications Medication Instructions Recorded Confirmed Type Aspirin 325 mg PO DAILY #30 tab 08/29/16 Rx Atorvastatin [Lipitor] 40 mg PO DAILY #30 tab 08/29/16 Rx Clopidogrel [Plavix] 75 mg PO DAILY #30 tab 08/29/16 Rx Furosemide [Lasix] 40 mg PO DAILY #7 tablet 08/29/16 Rx HYDROcodone/APAP 5-325MG [[place] 1 - 2 each PO Q6HR PRN #120 tab 08/29/16 Rx 5-325] Metoprolol Tartrate [Lopressor] 25 mg PO BID #60 tab 08/29/16 Rx Pantoprazole [Protonix] 40 mg PO AC-BRKFST #30 tablet.dr 08/29/16 Rx Potassium Chloride ER [K-Dur 10] 10 meq PO DAILY #7 tab 08/29/16 Rx Sennosides-Docusate Sodium 2 each PO HS tab 08/29/16 Rx [Senokot-S] Allergies Allergy/AdvReac Type Severity Reaction Status Date / Time No Known Allergies Allergy Verified 08/24/16 06:02 Surgical - Exam - General well developed, well nourished, no distress - Eyes normal ocular movement, no icteric - ENT no hearing loss, no congestion - Neck no masses, trachea midline - Respiratory normal respiratory effort, clear to auscultation - Cardiovascular Rhythm: regular Heart Sounds: normal: S1, S2 - Abdomen Abdomen: soft, non tender, no guarding, no rigid, no rebound - Genitourinary No testicular masses noted testicles present, testicles non-tender - Integumentary scar chest Posterior neck patient has a what appears to be a cyst in the mid posterior neck which is approximately 1 cm in size - Musculoskeletal normal gait, normal posture - Psychiatric oriented to time, oriented to person, oriented to place, speech is normal, memory intact Breast examination: Right breast: Multiple positional exam increased nodularity in the immediate retroareolar area approximately 1 cm in size consistent with gynecomastia no other masses of concern Right axilla: No adenopathy of concern Left breast: No dominant masses or nodules of concern noted definite gynecomastia changes in the left breast Left axilla: No adenopathy of concern Assessment and Plan Assessment: Impression/plan: 1. Right breast mass probable gynecomastia 2. Mitral valve repair 3. Posterior neck cyst Plan: 1. Consider ultrasound core biopsy of right breast lesion/we will discuss the case with radiology, if the tissues not to do a biopsy will see the patient again in 6 months time to follow this area 2. Medical management as per Dr. Lr Cc: Dr. Lr
== END | disposition home or self-care (01) ==
LOC: WWCWWP 10:40
PROVIDERS: ATTEND Surgery
DX: Z53.9 Procedure and treatment not carried out, unspecified reason (principal)

== ENCOUNTER → 2017-11-04 | Day surgery (SDC) | payer BC ==
--- NOTE | 2017-11-04 12:07 | MM ---
Reason for exam: clinical finding. Physical Findings: Nurse did not find any significant physical abnormalities on exam. MG Diagnostic Mammo w CAD BERYL Bilateral CC and MLO view(s) were taken. Prior study comparison: September 13, 2017, right breast US breast RT. There are scattered fibroglandular densities. Subareolar greater in the right breast consistent with gynecomastia. These results were verbally communicated with the patient and result sheet given to the patient on 11/04/17. ASSESSMENT: Benign, BI-RAD 2 RECOMMENDATION: Clinical management of both breasts. Manage patient on a clinical basis.
== END ==
LOC: RADUSWWP 10:28
PROVIDERS: ATTEND Surgery
DX: N63.10 Unspecified lump in the right breast, unspecified quadrant (principal); Z53.8 Procedure and treatment not carried out for other reasons
CPT/HCPCS: 77066

== ENCOUNTER → 2023-02-12 | Outpatient (CLI) | payer BC ==
[2023-02-12 13:43] LABS: Glucose 85 mg/dL (70-110)
[2023-02-12 13:44] LABS: ALT 40 U/L (10-49); AST 28 U/L (14-35); Albumin 4.6 d/dL (3.8-4.9); Albumin/Globulin Ratio 1.53 Ratio (1.60-3.17); Alkaline Phosphatase 80 U/L (41-126); Calcium 9.5 mg/dL (8.7-10.3); Carbon Dioxide 25.8 mmol/L (21.6-31.8); Chloride 104 mmol/L (96-109); Potassium 4.2 mmol/L (3.5-5.5); Sodium 142 mmol/L (135-145); Total Bilirubin 0.8 mg/dL (0.3-1.2); Total Protein 7.6 d/dL (6.2-8.2)
== END | disposition home or self-care (01) ==
LOC: LABWHC1 08:02
PROVIDERS: ATTEND Internal Medicine Interventional Cardiology
DX: E78.2 Mixed hyperlipidemia (principal)
CPT/HCPCS: 36415; 80053; 80061